=== PATIENT | female | born 1945 | race Caucasian/White ===

== ENCOUNTER → 2024-06-02 14:39 | Outpatient (REF) | payer OTHER, SELFPAY | LOC: RCS 14:39 | PROVIDERS: ATTENDING PHYSICIAN Internal Medicine Cardiovascular Disease | DX: I25.10 Atherosclerotic heart disease of native coronary artery without angina pectoris (principal); G20.A1 Parkinson's disease without dyskinesia, without mention of fluctuations; R06.02 Shortness of breath | CPT/HCPCS: 93306 ==

== ENCOUNTER → 2024-06-06 07:53 | Outpatient (REF) | payer OTHER, SELFPAY | LOC: PET 07:53 | PROVIDERS: ATTENDING PHYSICIAN Obstetrics & Gynecology | DX: I25.10 Atherosclerotic heart disease of native coronary artery without angina pectoris (principal); G20.A1 Parkinson's disease without dyskinesia, without mention of fluctuations; R06.02 Shortness of breath | CPT/HCPCS: 78431; A9555; J2785 ==

== ENCOUNTER → 2024-10-04 14:08 | Outpatient (REF) | payer OTHER, SELFPAY | LOC: DHSLP 14:08 | PROVIDERS: ATTENDING PHYSICIAN Student in an Organized Health Care Education/Training Program | DX: G47.30 Sleep apnea, unspecified (principal); R06.83 Snoring | CPT/HCPCS: 95800 ==

== ENCOUNTER → 2024-12-13 12:20 | Outpatient (REF) | payer OTHER, SELFPAY ==
[2024-12-13 17:37] LABS: Blood Urea Nitrogen 34 mg/dl (7-17); Calcium 9.5 mg/dl (8.4-10.2); Carbon Dioxide 31 mmol/L (22-30); Chloride 91 mmol/L (98-107); Glucose 76 mg/dl (70-99); Potassium 3.9 mmol/L (3.5-5.1); Sodium 129 mmol/L (135-145); eGFR > 60.00
== END ==
LOC: RAD 12:20
PROVIDERS: ATTENDING PHYSICIAN Student in an Organized Health Care Education/Training Program; FAMILY PHYSICIAN Student in an Organized Health Care Education/Training Program
DX: R10.84 Generalized abdominal pain (principal)
CPT/HCPCS: 36415; 74177; 80048; Q9967

== ENCOUNTER 2024-12-18 14:31 | Inpatient (IN) | payer OTHER, SELFPAY ==
[2024-12-15 18:57] VITALS: BP 130/80
[2024-12-15 19:23] LABS: Hematocrit 45.0 % (37.0-47.0); Hemoglobin 14.8 g/dL (12.0-16.0); Mean Corp Hgb Conc. 32.9 g/dL (33.0-37.0); Mean Corpuscular Volume 79.6 fL (81.0-99.0); Nucleated Red Blood Cells % 0 %; Platelet Count 309 10^3/uL (130-400); Red Cell Dist. Width 12.6 % (11.5-14.5)
[2024-12-15 19:39] LABS: ALT (SGPT) < 10 U/L (0-35); AST (SGOT) 16 U/L (14-36); Albumin 4.1 g/dl (3.5-5.0); Alkaline Phosphatase 129 U/L (38-126); Blood Urea Nitrogen 35 mg/dl (7-17); COVID-19 Antigen Negative (Negative); Calcium 9.1 mg/dl (8.4-10.2); Carbon Dioxide 29 mmol/L (22-30); Chloride 92 mmol/L (98-107); Glucose 93 mg/dl (70-99); Potassium 4.4 mmol/L (3.5-5.1); Sodium 130 mmol/L (135-145); Total Protein 6.7 g/dl (6.3-8.2); eGFR > 60.00
[2024-12-15 19:40] LABS: Lipase 220 U/L (23-300)
[2024-12-16] VITALS (9 sets, daily range): BP systolic 123–174; BP diastolic 63–98; BMI 25.9; BMI 26.8
--- NOTE | 2024-12-16 00:59 | ED.GENMED ---
History of Present Illness
General
Chief Complaint: Abdominal Symptoms
Source: patient, records and family
Exam Limitations: none
Time Seen by Provider: 12/16/24 00:15
Nursing documentation reviewed up to this point in time: agreed with
History of Present Illness
History of Present Illness:
78-year-old female with a past medical history of Parkinson's, hypertension, hyperlipidemia, hypothyroidism who presents to the ER with daughter for evaluation of abdominal pain with nausea and vomiting. Patient reports symptoms have been ongoing
for about 3 weeks and generally worsening. She was seen by her primary doctor for the symptoms 12/13 and was sent for urgent imaging and lab work which was nondiagnostic. She has been taking Zofran ODT and PPI but symptoms have been worsening over
the past few days. She cannot tolerate any liquids without vomiting and so she returned to the ER. She says she feels very fatigued and rundown. Continues to have pain across the lower abdomen which she describes as a cramping sensation. She has
had occasional diarrhea. She is chronically incontinent of urine but denies any acute urinary symptoms. She has not noted a fever. She denies any chest pain or shortness of breath or any other acute issues.
Past History
Past History
ED Past Medical History: HTN, Hypercholesterolemia and Other (Parkinson's)
ED Past Surgical History: Gynecological (Hysterectomy) and Other (Breast reduction)
Social History
Tobacco: Non-smoker
Alcohol: None
Drug: None
Personal:
Living: with family
Review of Systems
Review of Systems
All Other Systems: ROS reviewed and negative except as documented in HPI and ROS
Constitutional: Reports fatigue; Denies fever
EENT: Denies sore throat or runny nose
Respiratory: Denies cough or trouble breathing
Cardiac: Denies chest pain
ABD/GI: Reports abdominal pain, nausea, vomiting and diarrhea
: Reports incontinence; Denies dysuria or flank pain
Musculoskeletal: Denies neck pain or back pain
Neurological: Denies headache
Phy Exam
Physical Exam
Physical Exam:
General: Awake, alert, oriented x3; appears chronically ill
Head: Normocephalic, atraumatic
Eyes: Conjunctiva normal, sclera anicteric
Throat: Airway intact, dry mucous membranes
Neck: Trachea midline, supple without meningismus
Lungs: Clear to auscultation bilaterally, no wheezing, rales, rhonchi
Heart: Regular rate and rhythm, no murmurs, gallops, or rubs
Abd: Soft, non distended, diffusely tender maximally in the lower abdomen=
Skin: Warm and dry
Extremities: No edema in extremities, equal pulses in all extremities
Scores
Heart Failure Risk
Heart Failure Risk Score: Not Applicable
Heart Score for Chest Pain Patients
STEMI patient?: Not applicable
Withdrawal Assessment of Alcohol
Withdrawal Assessment Completed?: Not applicable
Course
Orders/Labs/Results
Orders:
Orders
12/15/24 19:10
COVID-19 Antigen Urgent
Source: Nasal Swab
Complete Blood Count/With Diff Urgent
Comprehensive Metabolic Panel Urgent
Lipase Urgent
Influenza A+B Rapid Molecular Urgent
PATRICK Source: Nasal Swab
Specimen Description:
12/16/24 00:17
CT Abd/pelvis W Iv Cont Urgent
Comment:
Reason For Exam: abd pain, vomiting
12/16/24 00:18
Electrocardiogram (*1) Urgent
Reason for Study: Abdominal Pain
EKG- Treatment ONCE
0.9% Sodium Chloride 500 ml [Nss] 500 ml IV BOLUS
12/16/24 01:03
Ondansetron Injectable [Zofran] 4 mg IV NOW STA
Abnormal Lab Results
12/15/24
19:10
RBC 5.65 H 10^6/uL
(4.20-5.40)
MCV 79.6 L fL
(81.0-99.0)
MCH 26.2 L pg
(27.0-31.0)
MCHC 32.9 L g/dL
(33.0-37.0)
MPV 11.5 H fL
(7.4-10.4)
Absolute Neuts (auto) 8.3 H 10^3/uL
(1.4-6.5)
Absolute Lymphs (auto) 0.3 L 10^3/uL
(1.2-3.4)
Absolute Monos (auto) 0.7 H 10^3/uL
(0.1-0.6)
Neutrophils % 88.7 H %
(42.2-75.2)
Lymphocytes % 3.4 L %
(20.5-51.1)
Sodium 130 L mmol/L
(135-145)
Chloride 92 L mmol/L
(98-107)
BUN 35 H mg/dl
(7-17)
Total Bilirubin 1.5 H mg/dl
(0.2-1.3)
Alkaline Phosphatase 129 H U/L
(38-126)
12/15/24 19:10
12/15/24 19:10
Vital Signs
Initial and Last Documented VS:
Initial Vital Signs
Temp Pulse Resp Pulse Ox
36.5 C 85 19 95
12/15/24 18:54 12/15/24 18:54 12/15/24 18:54 12/15/24 18:54
Last Documented Vital Signs
Temp Pulse Resp BP Pulse Ox
36.4 C 79 16 132/79 95
12/16/24 00:43 12/16/24 01:45 12/16/24 01:45 12/16/24 01:00 12/16/24 01:45
MDM/Problems Addressed
Differential Diagnosis Includes:
Bowel obstruction, cholelithiasis/cholecystitis, pancreatitis, gastritis, enteritis, less likely appendicitis or diverticulitis
MDM/Problems Addressed:
78-year-old female presents to the ER for worsening abdominal pain with nausea and vomiting�unable to tolerate p.o. Symptoms developed over 3 weeks but worsening over the past few days�had outpatient workup which was nondiagnostic but symptoms
still progressing. Vitals and exam are as above. She had labs in triage including a CBC and a CMP�CMP showed mildly elevated T. bili but normal transaminases and normal lipase. Viral swabs negative. Will repeat CT given progression of symptoms.
Check EKG. Fluid resuscitation and IV Zofran. Reassess after the above.
CT shows likely enteritis but no other acute abnormalities. Vital stable. Continue fluids, admit for symptom control given failure of outpatient management. Discussed with hospitalist.
*Radiology
Radiology exam reviewed: radiology read reviewed
*Pulse Oximetry
SaO2: 98
Oxygen Mode of Delivery: Room air
Patient hypoxic: no (98%)
*Critical Care Note
Total Time (30-74mins, 75-104mins- exclusive of procedures): Not Applicable
Data Reviewed
Review of Other/Old Records Reveals: Labs, Records and Progress Notes (Reviewed office note from PCP visit on Wednesday)
Source: patient and records
Patient Management
Discussion with other providers: Hospitalist (Discussed with hospitalist)
Escalation/DeEscalation of care consider admission/obs:
Admission indicated
ED Attending Note
-
Portions of this chart may have been created with voice recognition software.� Occasional wrong word or��sound alike� substitutions may have occurred due to the inherent limitations of voice recognition software.
Discharge Plan
Departure
Patient Disposition: Admit
Date of Disposition: 12/16/24
Time of Disposition: 03:24
Admit to doctor: Chalino
Presentation/result/management discussed w/ accepting MD/DO: Hospitalist
Discharge Problem:
Nausea & vomiting, Acute dehydration, Enteritis
Prescriptions:
No Action
atorvastatin 40 mg Tablet
40 mg PO DAILY
carbidopa-levodopa [Sinemet] 25-100 mg Tablet
2 tab PO Q3H
Patient Comments:
and at bedtime
quetiapine 25 mg Tablet
25 mg PO BID
carbidopa-levodopa 50-200 mg Tablet Extended Release
1 tab PO HS
selegiline HCl 5 mg Tablet
5 mg PO BID@,
rivastigmine tartrate 3 mg Capsule
6 mg PO BID
clopidogrel 75 mg Tablet
75 mg PO DAILY Qty: 30 0RF
aspirin 81 mg Tablet,Chewable
81 mg PO DAILY Qty: 0 0RF
lisinopril 40 mg Tablet
40 mg PO DAILY
levothyroxine
See Rx Instructions .ROUTE .COMPLEX
Rx Instructions:
139 mg orally Mon,,WED, , FR
omeprazole [Prilosec] 20 mg Capsule,Delayed Release(Dr/Ec)
20 mg PO DAILY
metoprolol tartrate 25 mg tablet
12.5 mg PO DAILY
Referrals:
Maria Fernanda Aguilar MD, Resident [Family Provider, General]
Interventions
Interventions:
*Risk Screen - Suicide Last Done: 12/15/24 18:56
*General Assessment Last Done: 12/15/24 18:56
*Neglect/Abuse Screening Last Done: 12/15/24 18:56
*ED- Fall Risk Assessment Last Done: 12/16/24 00:52
*ED COVID-19 Vaccine History Last Done: 12/15/24 18:56
*ED Influenza Vaccine History Last Done: 12/15/24 18:56
IN-Gvsduz-Ksubnohbcl Assessment Last Done: 12/16/24 00:44
Discharge Date and Time
Print Language: [place]
[2024-12-16] MEDS: NSS 500 IV (01:02)
[2024-12-16] MEDS: ZOFRAN 4 MG IV ×3 (01:13→16:49)
--- NOTE | 2024-12-16 04:27 | HPS.HSE ---
Family Physician
-
Family Physician: Maria Fernanda Aguilar MD, Resident
Chief Complaint
-
N/V and abdominal pain
History of Present Illness
Patient is an 78y F with PMH significant for Parkinson's disease, ASCVD and hypertension who presents to ED complaining of abdominal pain and N/V. Patient states that symptoms have been present for about 4 weeks and have been progressive in that
time. She reports initially a 'sour stomach' that progressed to include N/V. She reports about 3-4 episodes of non-bloody emesis daily. She has been eating / drinking very little and notes that recently she has also been unable to keep down her
medications. She notes pain across the upper abdomen. No diarrhea, bloody stools, etc.
Patient denies any fevers / chills. No known sick contacts. No recent travel.
Patient does state that she recently started a new formulation of extended release carbidopa-levodopa. She believes this was also about 4 weeks ago. No other recent med changes.
Medical History
Past Medical History
Past Medical History: Reports Other
Additional Past Medical History:
Parkinson's Disease
Hypertension
ASCVD
Myelofibrosis
Hypothyroidism
GERD
Lupus
Past Surgical History: Reports Other
Additional Past Surgical History:
PTCA with Stent
Hysterectomy
Breast Reduction
Carpal Tunnel Surgery
Brain Surgery (?)
Cataracts
Social History
Tobacco: Non-smoker
Alcohol: Occasional
Drug: None
Family History
Family History: Not pertinent
Allergies / Home Medications
Allergies reflects when Allergies were last updated in [facility].
Home Medications with original date entered in [facility]
Allergy/Medication List:
Patient is unable to confirm her current medication list.
If medication reconciliation has not been performed, why?: Medication List N/A
Review of Systems
-
History Source: Patient
A 12 point ROS was completed and negative except as noted: Yes
Constitutional: Reports Fatigue; Denies Fever or Chills
Respiratory: Denies Cough or Trouble Breathing
Cardiac: Denies Chest Pain or Palpitations
Abdomen/GI: Reports Abdominal Pain, Nausea, Vomiting and Anorexia; Denies Diarrhea, Bloody Stools or Black Stools
: Denies Dysuria or Frequency
Musculoskeletal: Denies Joint Pain or Edema
Neurological: Denies Dizzy or Headache
Psych: Denies Depression or Anxiety
Physical Exam
Vital Signs
Vital Signs
Temp Pulse Resp BP Pulse Ox
97.6 F 79 16 163/84 96
12/16/24 00:43 12/16/24 01:45 12/16/24 01:45 12/16/24 04:00 12/16/24 03:52
Physical Exam
General: Other (78y F somewhat restless in the bed.)
HEENT: Other (Dry MM. Neck supple.)
Respiratory: Clear; No Wheezes, Rales or Rhonchi
Cardiac: S1/S2 and Regular Rhythm; No Murmur
GI: Soft, Non Distended, Normal Bowel Sounds and Other (Mildly, diffusely tender. No rebound / guarding.)
Musculoskeletal: No Clubbing, No Cyanosis and No Edema
Neuro: AO x 3
Laboratory Results
-
12/15/24 19:10
12/15/24 19:10
Laboratory Results
Total Bilirubin 1.5 mg/dl (0.2-1.3) H 12/15/24 19:10
AST 16 U/L (14-36) 12/15/24 19:10
ALT < 10 U/L (0-35) 12/15/24 19:10
Alkaline Phosphatase 129 U/L (38-126) H 12/15/24 19:10
Lipase 220 U/L (23-300) 12/15/24 19:10
Impression/Plan
-
A/P: Patient is an 78y F with PMH significant for Parkinson's disease, ASCVD and hypertension who presents to ED complaining of about four weeks of abdominal discomfort and N/V.
N/V
- Observe overnight for further evaluation and treatment.
- CT A/P (done both 12/13 and 12/15) show only areas of small bowel decompression +/- enteritis.
- Afebrile, non-toxic, no leukocytosis and no diarrhea. Symptoms present x 4 weeks per patient which seems prolonged for typical enteritis.
- ? gastritis / enteritis. ? med effect. ? other.
- Supportive care with IVFs, pain control, antiemetics, etc.
- Need formal med rec - especially as patient states new extended release formulation of Sinemet started prior to current symptoms.
- Reviewed external summary, pharmacy interface, etc and multiple formulations with current fill dates are listed - not clear which of these she is actively taking.
- Complete formal med rec in AM and resume necessary medications at that time.
- Follow for clinical improvement with IVFs / supportive care.
Parkinson's Disease
- See above re: med rec and recent changes in carbidopa / levodopa regimen.
- If timing of new med is accurate - may wish to change back to next most recent regimen to see if current nausea symptoms improve?
ASCVD
- Continue ASA daily uninterrupted.
- Med rec and resume other usual CV meds in AM.
Hypothyroidism
- Continue T4 supplementation.
Lupus
- No acute rashes / skin changes / joint pain / etc.
DVT Prophylaxis: Lovenox
Code Status: DNR
[2024-12-16] MEDS: NSS 1000 IV (04:58)
[2024-12-16 05:16] LABS: Hematocrit 42.9 % (37.0-47.0); Hemoglobin 14.7 g/dL (12.0-16.0); Mean Corp Hgb Conc. 34.3 g/dL (33.0-37.0); Mean Corpuscular Volume 79.0 fL (81.0-99.0); Platelet Count 305 10^3/uL (130-400); Red Cell Dist. Width 12.6 % (11.5-14.5)
[2024-12-16 05:40] LABS: Blood Urea Nitrogen 36 mg/dl (7-17); Calcium 8.5 mg/dl (8.4-10.2); Carbon Dioxide 26 mmol/L (22-30); Chloride 97 mmol/L (98-107); Estimated Creatinine Clearance 46 ml/min; Glucose 58 mg/dl (70-99); Magnesium 1.7 mg/dl (1.6-2.3); Potassium 4.5 mmol/L (3.5-5.1); Sodium 132 mmol/L (135-145); eGFR > 60.00
[2024-12-16 07:57] LABS: Glucose - Point of Care 73 mg/dl (70-99)
--- NOTE | 2024-12-16 09:12 | EDCM ---
CM reviewed chart and met with pt bedside in ED. Lives alone in [place] apartment at [facility]. No JOI.
Independent in ADLs, personal care and ambulation at baseline, uses Rolling walker and occasionally cane. Also has shower chair.
Confirms prescription coverage.
OBS form reviewed and signed, copy given to pt.
No hx VN or SNF
PCP: Cookie Mcclure
Pharmacy: [facility]
Anticipate discharge home, CM will continue to follow for all discharge planning needs.
--- NOTE | 2024-12-16 09:47 | W.PN.UPDATE ---
Update Note
Progress Note Update
Admitted this morning by Dr. Allred for upper GI symptoms and abdominal pain. CT evidence of small areas of small bowel decompression plus or minus enteritis. Continue with the treatment plan. Await med rec to be completed to restart her home
medication. Asked pharmacy to finish the med rec.
[2024-12-16] MEDS: LOW STRENGTH ASPIRIN PO ×2 (09:56→10:06)
[2024-12-16] MEDS: PROTONIX PO ×2 (09:56→10:07)
--- NOTE | 2024-12-16 10:00 | PTCARENOTE ---
Addendum entered by Josue Laws RN 12/16/24 13:25:
Accuchecks ordered
Original Note:
Attempted to give PO medications to patient, denies nausea at this time. Patient swallowed medications with thin liquids and immediately coughed with some choking noted. Pills came back whole and pt began to vomit bilious contents. MD made aware,
made NPO for now and FORM TAMPER consulted. D51/2NSS ordered to maintain blood sugars - accucheck 77. Patient awaiting bed assignment in hospital and daughter at bedside. Call appiah within reach, care ongoing.
[2024-12-16] MEDS: D5/0.45%NACL 500 IV (12:02)
[2024-12-16 12:03] LABS: Glucose - Point of Care 77 mg/dl (70-99)
--- NOTE | 2024-12-16 14:10 | PTCARENOTE ---
Received patient from ED via hospital bed. AAOx3, forgetful. Assessed and oriented to room. Bed alarm in place. Daughter at bedside. Will continue to monitor.
[2024-12-16] MEDS: ZESTRIL 40 MG PO (16:31)
[2024-12-16] MEDS: SEROQUEL 25 MG PO (16:32)
[2024-12-16] MEDS: LOVENOX 40 MG SC (16:35)
[2024-12-16 16:44] LABS: Glucose - Point of Care 120 mg/dl (70-99)
[2024-12-16] MEDS: D5/0.45%NACL IV (17:26)
--- NOTE | 2024-12-16 17:39 | PTOTSP ---
Speech Therapy Evaluation
Pt at an increased risk of aspiration given history of Parkinson's disease and GERD. Speech consulted due to 'choking' episode with whole pills. At bedside, pt demonstrated difficulty with regular solids but was able to manage softer textures. Pt
swallowed solids with facial grimacing but denied odynophagia. No overt s/sx of aspiration with thin liquid trials but pt reported occasional coughing when drinking thins. Cannot rule out silent aspiration at bedside. Pt with suspected GI issues,�as
evidenced by n/v and abdominal pain.�
Recommendation:
1 .IDDSI 6 Soft and bite size, IDDSI 0 Thin liquids
2. Medication crushed in puree only (how patient took medication at baseline)
3. Standard aspiration precautions
4. EXPANSION JOINT BUILDER to follow and consider VSE to rule out pharyngeal dysphagia
[2024-12-16] MEDS: NON-FORMULARY ITEM 2 CAP PO (17:44)
[2024-12-16] MEDS: D5/0.45%NACL 1000 IV (17:45)
[2024-12-16 21:38] LABS: Glucose - Point of Care 122 mg/dl (70-99)
[2024-12-16] MEDS: SEROQUEL 75 MG PO (22:08)
[2024-12-16] MEDS: MELATONIN 5 MG PO (22:08)
[2024-12-16] MEDS: EXELON 6 MG PO (22:08)
[2024-12-16] MEDS: PEPCID 40 MG PO (22:09)
[2024-12-16] MEDS: LIPITOR 40 MG PO (22:09)
[2024-12-16] MEDS: TOPROL XL PO ×2 (22:09→23:32)
[2024-12-16] MEDS: NON-FORMULARY ITEM PO ×2 (22:13→23:32)
[2024-12-16] MEDS: PLAQUENIL 200 MG PO (22:15)
[2024-12-16] MEDS: SINEMET CR 50/200 (EXTENDED RELEASE) PO ×2 (22:16→23:32)
[2024-12-17] MEDS: VALIUM INJECTION 2 MG IV (01:01)
--- NOTE | 2024-12-17 02:05 | W.PN.UPDATE ---
Update Note
Progress Note Update
Pt confused and agitated overnight. Repeatedly trying to climb oob and kick and hurt staff.
Review of chart showed in nov 2021 admission pt also had a night when we was confused, agitated and not cooperative. So possible hospital delirium in this parkinson pt.
She did receive her HS seroquel, but did refuse her parkinson meds.
Valium iv attempted but ineffective. Restraints ordered and dose of zyprexa (not willing to take anything po at this time).
Consider psych consult. Has not had her nuplazid in 2 days as it is non formulary. Is this making MS worse?MAy need to have family bring in from home.
[2024-12-17] MEDS: ZYPREXA 5 MG IM (02:20)
[2024-12-17] MEDS: D5/0.45%NACL 1000 IV ×2 (04:08→14:52)
--- NOTE | 2024-12-17 05:00 | PTCARENOTE ---
Patient set off bed alarm and lowered herself next to side of bed to crouching position. Patient incontinent of large amount of urine on floor. Patient assisted back to bed x2, VSS. RECEPTIONIST DOCTOR'S OFFICE made aware. Attempted to give HS meds, patient refusing
stating 'you are giving me too many.' Educated patient on the importance of taking meds, patient eventually agreeable to take most of her medications, see mar. Throughout night patient agitated with care, yelling, combative, trying to kick staff.
Patient confused, oriented x2 stating she is at [facility]. Patient continuously trying to get out of bed despite redirection. RECEPTIONIST DOCTOR'S OFFICE made aware, orders for bilateral wrist restraints and IV valium. After valium, patient continues to be combative and
attempting to get up, RECEPTIONIST DOCTOR'S OFFICE added orders for IM Zyprexa. Plan of care ongoing.
[2024-12-17 07:35] VITALS: BP 149/98
[2024-12-17 07:38] LABS: Glucose - Point of Care 119 mg/dl (70-99)
[2024-12-17 07:58] LABS: Hematocrit 41.9 % (37.0-47.0); Hemoglobin 14.7 g/dL (12.0-16.0); Mean Corp Hgb Conc. 35.1 g/dL (33.0-37.0); Mean Corpuscular Volume 77.3 fL (81.0-99.0); Platelet Count 298 10^3/uL (130-400); Red Cell Dist. Width 12.5 % (11.5-14.5)
[2024-12-17] MEDS: NON-FORMULARY ITEM PO ×3 (08:20→17:33)
[2024-12-17] MEDS: PROTONIX 40 MG PO (08:58)
[2024-12-17] MEDS: ZESTRIL 40 MG PO (08:58)
[2024-12-17] MEDS: ORETIC 25 MG PO (08:58)
[2024-12-17] MEDS: SEROQUEL 25 MG PO (08:58)
[2024-12-17] MEDS: LOW STRENGTH ASPIRIN 81 MG PO (08:58)
[2024-12-17] MEDS: EXELON 6 MG PO ×2 (09:15→19:43)
[2024-12-17 12:00] LABS: Glucose - Point of Care 108 mg/dl (70-99)
[2024-12-17 12:09] LABS: Glycohemoglobin (HgbA1c) 6.0 % (4.0-5.6)
--- NOTE | 2024-12-17 12:56 | W.PN.HOSP.TC ---
Addendum entered and electronically signed by Isaac West MD 12/17/24 13:06:
Hyponatremia -continue to follow
Original Note:
Today's Communication/Plan
-
Resume all her Parkinson's disease medicine. Daughter to bring Nuplazid. Continue with IV fluids.
Bowel regimen.
Assessment / Plan
Assessment / Plan
A/P: Patient is an 78y F with PMH significant for Parkinson's disease, ASCVD and hypertension who presents to ED complaining of about four weeks of abdominal discomfort and N/V.
N/V with abdominal pain and weight loss.
- CT A/P (done both 12/13 and 12/15) show only areas of small bowel wall thickening in the right lower quadrant raising concern for enteritis..
- Afebrile, non-toxic, no leukocytosis and no diarrhea. Symptoms present x 4 weeks per patient which seems prolonged for typical enteritis.
- ? gastritis / enteritis. ? med effect. ? other.
-Patient on the most recent endoscopy which was in 2022 showed multiple gastric polyps and a biopsy that was benign. Unclear if it has any relation to her current symptoms but will ask GI to weigh in.
- Supportive care with IVFs, pain control, antiemetics, etc.
- Need formal med rec - especially as patient states new extended release formulation of Sinemet started prior to current symptoms. According to the family who was in touch with neurology they do not suspect her medication to play a role in her GI
symptoms.
- Follow for clinical improvement with IVFs / supportive care.
- On-call GI recommends to add bowel regimen to see if that makes any difference.
Parkinson's Disease with history of agitation so was put on Nuplazid
- Patient states neurologist at [facility] on the current regimen of medicine apparently is keeping the symptoms under control mostly. Will continue with her regimen.
Acute agitation-unclear if this is Parkinson disease related cognitive issue or missing her Nuplazid. Apart from GI symptom as above no obvious other infectious concern. Mild natremia noted but I doubt that has any relation to agitation. She had
prior episodes of agitation during hospitalization. Suspect sundowning and missing medication.
Daughter going to try and get Nuplazid. Continue with other Parkinson's medicine. If continued agitation consult neurology.
ASCVD
- Continue ASA daily uninterrupted.
- Med rec and resume other usual CV meds in AM.
Hypothyroidism
- Continue T4 supplementation.
Lupus
- No acute rashes / skin changes / joint pain / etc.
DVT Prophylaxis: Lovenox
Code Status: DNR
Discussed with RN. Discussed with daughter at bedside.
Total time spent on today's encounter was 52 minutes which included time spent in counseling the patient/family regarding diagnosis and treatment plan as listed above, goals of care, and symptom management. Case was discussed with nursing staff,
specialists, and care coordinators/case management. All labs and imaging personally reviewed by me. Remainder the time spent in detailed review of previous records, lab data, imaging, and other medical provider documentation.
Portions of this chart may have been created with voice recognition software. Occasional wrong word or 'sound alike' substitutions may have occurred due to the inherent limitations of voice recognition software.
Anticipated Discharge: > 48 hours
Subjective/Interval History
-
Date of Service: December 17, 2024
Last night events of agitation noted.
This morning patient is sedated and difficult to be arousable. No agitation. No respiratory distress evident. On room air. In restraints.
Objective Data
-
Labs:
Laboratory Results
12/17/24
07:04
WBC 8.4
Hgb 14.7
Hct 41.9
Plt Count 298
Vital Signs:
Vital Signs
Temp Pulse Resp BP Pulse Ox
98.1 F 112 18 149/98 97
12/17/24 07:35 12/17/24 07:35 12/17/24 07:35 12/17/24 07:35 12/17/24 07:35
I&O
12/16/24 12/17/24 12/18/24
06:59 06:59 06:59
Intake Total 700 / 700 1380 / 1380
Balance 700 / 700 1380 / 1380
Physical Exam
-
General: No Apparent Distress
Respiratory: Clear to Auscultation (Anterior lateral auscultation) and Non Labored Respirations; Negative Accessory Resp Muscle Use
Cardiac: Regular Rhythm and S1/S2; Negative Tachycardic
GI: Soft
Neuro: Sedated
Psych: Calm
Data Reviewed
-
Labs: Labs Reviewed by me
[2024-12-17] MEDS: MIRALAX PO (13:51)
[2024-12-17 15:20] VITALS: BP 140/74
[2024-12-17 16:49] LABS: Glucose - Point of Care 118 mg/dl (70-99)
[2024-12-17] MEDS: NON-FORMULARY ITEM 34 MG PO (17:56)
[2024-12-17] MEDS: LOVENOX 40 MG SC (17:57)
[2024-12-17] MEDS: NON-FORMULARY ITEM 2 CAP PO ×2 (18:01→22:37)
--- NOTE | 2024-12-17 19:32 | PTCARENOTE ---
Patient more arousable this evening. Asking appropriate questions. Attempting to eat dinner. Patient was able to take PO medications with water. Updated daughter Barbi. Will continue to monitor.
[2024-12-17] MEDS: COLACE 100 MG PO (19:43)
[2024-12-17] MEDS: SINEMET CR 50/200 (EXTENDED RELEASE) 1 TABLET PO (19:43)
[2024-12-17] MEDS: SEROQUEL 75 MG PO (19:44)
[2024-12-17] MEDS: PLAQUENIL 200 MG PO (20:56)
[2024-12-17] MEDS: TOPROL XL 12.5 MG PO (22:43)
[2024-12-17] MEDS: PEPCID 40 MG PO (22:43)
[2024-12-17] MEDS: LIPITOR 40 MG PO (22:47)
[2024-12-17] MEDS: MELATONIN 5 MG PO (22:47)
[2024-12-17 23:52] VITALS: BP 105/52
[2024-12-18] MEDS: D5/0.45%NACL 1000 IV ×3 (00:08→21:14)
[2024-12-18] MEDS: SYNTHROID 137 MCG PO (06:28)
[2024-12-18 08:34] VITALS: BP 127/65
[2024-12-18 09:20] LABS: Hematocrit 39.5 % (37.0-47.0); Hemoglobin 12.9 g/dL (12.0-16.0); Mean Corp Hgb Conc. 32.7 g/dL (33.0-37.0); Mean Corpuscular Volume 80.1 fL (81.0-99.0); Platelet Count 236 10^3/uL (130-400); Red Cell Dist. Width 12.7 % (11.5-14.5)
[2024-12-18] MEDS: NON-FORMULARY ITEM 2 CAP PO ×3 (09:23→21:11)
[2024-12-18] MEDS: NON-FORMULARY ITEM 34 MG PO (09:24)
[2024-12-18] MEDS: EXELON 6 MG PO ×2 (09:24→20:38)
[2024-12-18] MEDS: COLACE 100 MG PO (09:25)
[2024-12-18] MEDS: SEROQUEL 25 MG PO (09:25)
[2024-12-18] MEDS: LOW STRENGTH ASPIRIN 81 MG PO (09:25)
[2024-12-18] MEDS: PROTONIX 40 MG PO (09:25)
[2024-12-18] MEDS: ZESTRIL 40 MG PO (09:25)
[2024-12-18] MEDS: MIRALAX 17 GRAMS PO (09:26)
[2024-12-18] MEDS: ORETIC 25 MG PO (09:26)
[2024-12-18 10:11] LABS: Blood Urea Nitrogen 15 mg/dl (7-17); Calcium 8.6 mg/dl (8.4-10.2); Carbon Dioxide 30 mmol/L (22-30); Chloride 98 mmol/L (98-107); Estimated Creatinine Clearance 65 ml/min; Glucose 83 mg/dl (70-99); Potassium 3.3 mmol/L (3.5-5.1); Sodium 132 mmol/L (135-145); eGFR > 60.00
[2024-12-18 12:25] LABS: Glucose - Point of Care 107 mg/dl (70-99)
--- NOTE | 2024-12-18 14:32 | W.PN.HOSP.TC ---
Today's Communication/Plan
-
Assessment / Plan
Assessment / Plan
A/P: Patient is an 78y F with PMH significant for Parkinson's disease, ASCVD and hypertension who presents to ED complaining of about four weeks of abdominal discomfort and N/V.
NAD
Scleral Anicteric
MMM
No JVD
CTABL
RRR, S1/S2
Soft, NT, ND, BS+
Warm, Dry
AAOx3
Calm
N/V with abdominal pain and weight loss. Symptomatology ongoing x [address] abdomen pelvis reviewed demonstrating some right lower quadrant small bowel thickening could be enteritis
Strange for infectious enteritis to be ongoing for more than 2 weeks.
Will have GI eval
Continue current diet
If eating less start IV fluids dextrose containing
Parkinson's Disease with history of agitation so was put on Nuplazid
- Patient states neurologist at [facility] on the current regimen of medicine apparently is keeping the symptoms under control mostly. Will continue with her regimen.
Acute agitation-unclear if this is Parkinson disease related cognitive issue or missing her Nuplazid. Apart from GI symptom as above no obvious other infectious concern. Mild natremia noted but I doubt that has any relation to agitation. She had
prior episodes of agitation during hospitalization. Suspect sundowning and missing medication.
Daughter going to try and get Nuplazid. Continue with other Parkinson's medicine. If continued agitation consult neurology.
ASCVD
- Continue ASA daily uninterrupted.
- Med rec and resume other usual CV meds in AM.
Hypothyroidism
- Continue T4 supplementation.
Lupus
- No acute rashes / skin changes / joint pain / etc.
DVT Prophylaxis: Lovenox
Code Status: DNR
Discussed with daughter at bedside
Anticipated Discharge: 24 - 48 hours
Subjective/Interval History
-
Date of Service: December 18, 2024
Seen and examined. No new complaints. No acute overnight events.
Started on Nuplazid. No more further hallucinations. Had a better night last night.
Objective Data
-
Labs:
Laboratory Results
12/18/24
08:40
WBC 5.5
Hgb 12.9
Hct 39.5
Plt Count 236 D
Sodium 132 L
Potassium 3.3 L D
Chloride 98
Carbon Dioxide 30
BUN 15
Creatinine 0.6
Glucose 83
Calcium 8.6
Vital Signs:
Vital Signs
Temp Pulse Resp BP Pulse Ox
98.2 F 64 18 127/65 97
12/18/24 08:34 12/18/24 09:25 12/18/24 08:34 12/18/24 09:25 12/18/24 08:34
I&O
12/17/24 12/18/24 12/19/24
06:59 06:59 06:59
Intake Total 1380 / 1380 0 / 0
Balance 1380 / 1380 0 / 0
[2024-12-18 15:33] VITALS: BP 149/75
[2024-12-18 17:04] LABS: Glucose - Point of Care 101 mg/dl (70-99)
[2024-12-18] MEDS: LOVENOX 40 MG SC (17:17)
--- NOTE | 2024-12-18 18:38 | CM ---
Pt continues on IVF and supportive care. Spoke with nurse Pearl who stated the patient's Parkinson's medication still needed management before she would be ready for discharge.
Plan: Home to [place] at [facility]
[2024-12-18] MEDS: COLACE PO (20:37)
[2024-12-18] MEDS: PLAQUENIL 400 MG PO (20:38)
[2024-12-18] MEDS: SEROQUEL 75 MG PO (20:39)
[2024-12-18] MEDS: LIPITOR 40 MG PO (20:39)
[2024-12-18] MEDS: PEPCID 40 MG PO (20:40)
[2024-12-18] MEDS: TOPROL XL 12.5 MG PO (20:47)
[2024-12-18] MEDS: SINEMET CR 50/200 (EXTENDED RELEASE) 1 TABLET PO (20:48)
[2024-12-18] MEDS: ZOFRAN 4 MG IV (20:59)
[2024-12-18] MEDS: MELATONIN PO (21:08)
[2024-12-18 21:31] LABS: Glucose - Point of Care 85 mg/dl (70-99)
[2024-12-18 23:51] LABS: Glucose - Point of Care 110 mg/dl (70-99)
[2024-12-18 23:57] VITALS: BP 117/62
[2024-12-19] MEDS: SYNTHROID 137 MCG PO (05:45)
[2024-12-19 07:20] VITALS: BP 170/88
[2024-12-19] MEDS: NON-FORMULARY ITEM 2 CAP PO ×3 (07:58→21:51)
[2024-12-19] MEDS: NON-FORMULARY ITEM 34 MG PO (07:59)
[2024-12-19 08:31] LABS: Glucose - Point of Care 54 mg/dl (70-99)
--- NOTE | 2024-12-19 08:38 | PTCARENOTE ---
Pt has a BS of 54, gave OJ, and breakfast. made aware. Will recheck in 15 minutes.
[2024-12-19] MEDS: ORETIC 25 MG PO (08:40)
[2024-12-19] MEDS: LOW STRENGTH ASPIRIN 81 MG PO (08:41)
[2024-12-19] MEDS: COLACE 100 MG PO (08:41)
[2024-12-19] MEDS: SEROQUEL 25 MG PO (08:41)
[2024-12-19] MEDS: MIRALAX 17 GRAMS PO (08:41)
[2024-12-19] MEDS: EXELON 6 MG PO ×2 (08:41→21:43)
[2024-12-19] MEDS: ZESTRIL 40 MG PO (08:41)
[2024-12-19] MEDS: PROTONIX 40 MG PO (08:41)
--- NOTE | 2024-12-19 08:50 | CM ---
Addendum entered by Crystal Lorenz 12/19/24 17:59:
Sodium remains low.
PT rec SNF at discharge. Will hold sending referrals to [facility] and [facility] . Please see paragraph below.
Lengthy conversation with daughter regarding dc planning and PT recommendation. Dtr would prefer pt not to be placed in STR facility if possible. She believes that her mother can receive additional care with dressing, bathing, getting in and out of
bed, etc from the staff at [facility] where is currently living in an apartment. Dtr would be open to having a conference call with [facility] at [facility], physical therapist and CM to discuss if this is a safe alternative for the pt. CM explained
that pt needs moderate level of assistance with bed mobility.
CM will try to arrange a conference call
Plan: DC to SNF vs home health for PT and and increasing personal care services
Original Note:
Correction to note of 12/18/24
Pt continues on IVF and supportive care.
Plan: Home to [place] at [facility]
[2024-12-19 08:55] LABS: Glucose - Point of Care 80 mg/dl (70-99)
[2024-12-19 09:27] LABS: Hematocrit 42.3 % (37.0-47.0); Hemoglobin 13.6 g/dL (12.0-16.0); Mean Corp Hgb Conc. 32.2 g/dL (33.0-37.0); Mean Corpuscular Volume 81.3 fL (81.0-99.0); Platelet Count 227 10^3/uL (130-400); Red Cell Dist. Width 12.7 % (11.5-14.5)
[2024-12-19 09:48] LABS: Blood Urea Nitrogen 11 mg/dl (7-17); Calcium 8.7 mg/dl (8.4-10.2); Carbon Dioxide 29 mmol/L (22-30); Chloride 99 mmol/L (98-107); Estimated Creatinine Clearance 65 ml/min; Glucose 108 mg/dl (70-99); Potassium 3.1 mmol/L (3.5-5.1); Sodium 129 mmol/L (135-145); eGFR > 60.00
[2024-12-19 10:59] LABS: Glucose - Point of Care 99 mg/dl (70-99)
[2024-12-19 11:54] VITALS: BP 173/84; BP 176/85; BP 181/97; PULSE 61; PULSE 65; PULSE 77
--- NOTE | 2024-12-19 14:21 | CON.GI ---
Addendum entered and electronically signed by Merly Strickland DO 12/19/24 16:12:
The patient was seen and examined by me independently in collaboration with the nurse practitioner.
Past medical history/social history/medications/allergies/family history reviewed.
Lab data and imaging data reviewed.
78 y.o. female with hx SLE, PD, CAD s/p PCI, colon polyps, hypothyroidism, HLD, myelofibrosis admitted with acute on chronic abdominal pain, nausea and vomiting. No vomiting in last 2 days. Abdominal pain concentrated in lower abdomen, in band line
fashion. Admits to baseline constipation, knows she should take something daily at home but doesn't. She did have a large BM yesterday, following this, was able to eat a large portion of her dinner last night, which is a great improvement from
admission. Currently, on miralax daily and colace BID. She had a small BM earlier. Her exam is benign. Overall, states she feels well.
Suspect the etiology of her symptoms is constipation related-- which is extremely common in Parkinsons. Additionally, she is hyponatremic and also commonly causes constipation. All of this makes sense with her prior imaging studies demonstrating
moderate stool burden.
CT shows possible mild enteritis, I do not feel this is a significant finding, perhaps this was part of her initial N/V, but seems to have resolved
Agree with optimizing bowel regimen and correction of Na
Original Note:
Consultation
-
Date/Time Consultation Requested: 12/19/24 1200
Date/Time Consultation Performed: 12/19/24 1420
Requesting Provider: Cuco Castro MD
Performing Provider: TIARA Sheridan, Keke Strickland DO
Reason for Consultation: abdominal pain with nausea and vomiting
Medical History
Chief Complaint / HPI
Chief Complaint: constipatuion, decreased appetite
History of Present Illness:
Pt is a 78yo presents with hx SLE, parkinson's, CAD with prior stenting, colon polyps, GERD, HTN, hyperlipidemia, hypothyroidism, myelofibrosis, prior brain surgery, breast reduction with admission 12/15 with abdominal pain with nausea and
vomiting. In review PCP noted prior to admission noted with recent wt loss of 15 lbs since October. Since admission noted with stable CBC, persistent hyponatremia with Na 129-130, K 3.1, initial aimee 1.5 and alk phos 129 with normal
transaminases. She also had [address] with last 12/16 did question enteritis and SB wall thickening otherwise stable. She also admits to change in Parkinson meds with now extended release and per nursing staff was off for several days now
restarted.
In reviewing with patient chronic decreased appetite. She also admits to chronic constipation and lower abdominal pain. She was having some nausea and vomiting but not noted per staff last 2 days. Abdominal pain is better with tums and BM's.
She did have large stools 12/18 then did eat better today. She was taking Miralax minimally as needed prior to admission but now placed on Miralax daily and colace BID. She denies any issues with odynophagia, dysphagia, GERD, diarrhea or
rectal bleeding.
10/2019 colonoscopy michael - Three 3 to 5 mm polyps in the sigmoid colon, in the
descending colon and in the cecum. Biopsied.
- Minimal diverticulosis in the sigmoid colon bx TA
12/2022 EGDfor nausea and wt loss - Dr. Christopher - Normal esophagus. Biopsied.
- Z-line regular, 40 cm from the incisors.
- Erythematous mucosa in the antrum. Biopsied.
- Multiple gastric polyps. Resected and retrieved.
- Normal examined duodenum. Biopsied.
bx neg, no hpylori, stomach polyp no specific pathologic changes
.
Past Medical History
Past Medical History: Arrhythmias (PVC's), CAD, GERD, HTN, Hypercholesterolemia, Hypothyroidism and Other (parkinson's disease, myelofibrosis, colon polyps, pancytopenia, lupus )
Past Surgical History: Brain, Cardiac (stents), Gynecological (hysterectomy), Orthopedic (achilles tendon injury, b/l carpel tunnel) and Other (breast reduction, b/l cataracts, left eye surgery )
Social History
Tobacco: Non-Smoker
Alcohol: None
Drug: None
Living: Other (personal care [facility] )
Employment: Retired
Family History
Family History: Other (colon polyps-sister )
Allergies / Home Medications
Allergy/AdvReac Type Severity Reaction Status Date / Time
penicillin V Allergy Rash Verified 11/05/22 17:27
�Medication �Instructions �Recorded
atorvastatin 40 mg tablet 40 mg PO HS High cholesterol 11/23/21
carbidopa ER 50 mg-levodopa 200 mg 1 tab PO HS Parkinson Disease 12/11/21
tablet,extended release
quetiapine 25 mg tablet 25 mg PO DAILY Psychosis in 12/11/21
Parkinson Disease
rivastigmine tartrate 3 mg capsule 6 mg PO BID Parkinson Disease 12/11/21
aspirin 81 mg chewable tablet 81 mg PO DAILY #0 tabs 12/14/21
lisinopril 40 mg tablet 40 mg PO DAILY 11/05/22
acetaminophen 325 mg tablet 650 mg PO Q4H PRN mild pain/fever 12/16/24
carbidopa 25 mg-levodopa 100 mg 1 tab PO DAILYPRN PRN before 12/16/24
tablet exercise
carbidopa 70 mg-levodopa ER 280 mg 2 cap PO TID 12/16/24
capsule,immed and extended release
(Crexont)
famotidine 40 mg tablet 40 mg PO HS 12/16/24
hydrochlorothiazide 25 mg tablet 25 mg PO DAILY 12/16/24
hydroxychloroquine 200 mg tablet 200 mg PO SUTUTHSA@199912/16/24
hydroxychloroquine 200 mg tablet 400 mg PO MOWEFR@199912/16/24
levothyroxine 137 mcg tablet 137 mcg PO MOTUWETHFR 12/16/24
loperamide 2 mg tablet 2 mg PO Q4H PRN diarrhea 12/16/24
melatonin 2.5 mg chewable tablet 5 mg PO HS 12/16/24
metoprolol succinate 25 mg 12.5 mg PO HS 12/16/24
tablet,extended release 24 hr
ondansetron 4 mg disintegrating 4 mg PO Q8HPRN PRN nausea/vomiting 12/16/24
tablet
pantoprazole 40 mg tablet,delayed 40 mg PO DAILY 12/16/24
release
pimavanserin 34 mg capsule 34 mg PO DAILY 12/16/24
(Nuplazid)
quetiapine 25 mg tablet 75 mg PO HS 12/16/24
Review of Systems
-
History Source: Patient
Constitutional: Reports Weight Loss (per PCP not not per 2021 weight )
EENT: Reports No Symptoms
Respiratory: Reports No Symptoms
Abdomen/GI: Reports Abdominal Pain, Nausea, Vomiting and Constipated
: Reports No Symptoms
Musculoskeletal: Reports No Symptoms
Skin: Reports No Symptoms
Neurological: Reports Weakness
Endocrine: Reports No Symptoms
Hematologic/Lymphatic: Reports No Symptoms
Vital Signs
Temp Pulse Resp BP Pulse Ox
97.6 F 66 20 170/82 97
12/19/24 07:20 12/19/24 08:40 12/19/24 07:20 12/19/24 08:40 12/19/24 08:35
Physical Exam
Exam
General: Well Developed, Well Nourished and No Apparent Distress
HEENT: Normocephalic and Anicteric
Respiratory: Clear
Cardiac: Regular Rhythm
GI: Soft, Non Distended and Tender (minimal lower abdominal pain )
Musculoskeletal: No Clubbing and No Cyanosis
Skin: Warm and Dry
Neuro: Awake, Alert and AO x 3
Psych: Calm
Results
WBC 6.7 10^3/uL (4.8-10.8) 12/19/24 09:14
Hgb 13.6 g/dL (12.0-16.0) 12/19/24 09:14
Hct 42.3 % (37.0-47.0) 12/19/24 09:14
MCV 81.3 fL (81.0-99.0) 12/19/24 09:14
Plt Count 227 10^3/uL (130-400) 12/19/24 09:14
Absolute Neuts (auto) 8.3 10^3/uL (1.4-6.5) H 12/15/24 19:10
Sodium 129 mmol/L (135-145) L 12/19/24 09:14
Potassium 3.1 mmol/L (3.5-5.1) L 12/19/24 09:14
Chloride 99 mmol/L (98-107) 12/19/24 09:14
Carbon Dioxide 29 mmol/L (22-30) 12/19/24 09:14
BUN 11 mg/dl (7-17) 12/19/24 09:14
Creatinine 0.5 mg/dL (0.6-1.0) L 12/19/24 09:14
Calcium 8.7 mg/dl (8.4-10.2) 12/19/24 09:14
Total Bilirubin 1.5 mg/dl (0.2-1.3) H 12/15/24 19:10
AST 16 U/L (14-36) 12/15/24 19:10
ALT < 10 U/L (0-35) 12/15/24 19:10
Alkaline Phosphatase 129 U/L (38-126) H 12/15/24 19:10
Lipase 220 U/L (23-300) 12/15/24 19:10
Diagnostic Image Results:
10/2019 colonoscopy morsbach - Three 3 to 5 mm polyps in the sigmoid colon, in the
descending colon and in the cecum. Biopsied.
- Minimal diverticulosis in the sigmoid colon bx TA
12/2022 for nausea and wt loss EGD Do - Normal esophagus. Biopsied.
- Z-line regular, 40 cm from the incisors.
- Erythematous mucosa in the antrum. Biopsied.
- Multiple gastric polyps. Resected and retrieved.
- Normal examined duodenum. Biopsied.
bx neg, no hpylori, stomach polyp no specific pathologic changes
12/13/24 CT Abd/pel W Iv And Oral Contr
1. No significant acute abnormality identified in the abdomen or pelvis, as described above.
2. 5 mm right lower lobe pulmonary nodule, likely benign. If the patient is considered high risk, an optional follow-up noncontrast CT chest can be obtained in 12 months. The [facility] Pulmonary Nodule Advisory Board will be notified.
12/16/24 CT Abd/pelvis W Iv Cont
Apparent wall thickening of small bowel in the right lower quadrant, possibly due to enteritis, no intestinal obstruction or free air.
Additional stable findings in comparison to recent prior study, as detailed above
Assessment / Plan
-
Pt is a 78yo presents with hx SLE, parkinson's, CAD with prior stenting, colon polyps, GERD, HTN, hyperlipidemia, hypothyroidism, myelofibrosis, prior brain surgery, breast reduction with admission 12/15 with abdominal pain with nausea and vomiting.
In review PCP noted prior to admission noted with recent wt loss of 15 lbs since October. Since admission noted with stable CBC, persistent hyponatremia with Na 129-130, K 3.1, initial aimee 1.5 and alk phos 129 with normal transaminases. She
also had [address] with last 12/16 did question enteritis and SB wall thickening otherwise stable. She also admits to change in Parkinson meds with now extended release and per nursing staff was off for several days now restarted. In
reviewing with patient chronic decreased appetite. She also admits to chronic constipation and lower abdominal pain. She was having some nausea and vomiting but not noted per staff last 2 days. Abdominal pain is better with tums and BM's. She did
have large stools 12/18 then did eat better today. She was taking Miralax minimally as needed prior to admission but now placed on Miralax daily and colace BID.
-wt loss with decreased appetite
-abdominal pain
-CT with possible enteritis
-constipation
-hx parkinson's with change to long acting medication
-hyponatremia
-mild bili and alk phos elevation
other med problems:
SLE,CAD with prior stenting, colon polyps, GERD, HTN, hyperlipidemia, hypothyroidism, myelofibrosis, prior brain surgery, breast reduction
PLAN:
etiology of nausea /vomiting with decreased appetite related to possible enteritis on CT, constipation, vs other
reviewed with nursing staff no further vomiting last 2 days and did eat well for lunch today
she had large stool 12/18 and small stool 12/19
reviewed with patient will need bowel regiment to continue on discharge-- cont miralax daily, colace BID and will add senna at HS
correct Na per medical team
monitor intakes
cont parkinson medications
repeat LFT's with mild elevation on admission
pt would be due for follow up colonoscopy but with multiple medical problems she is not sure she would want to proceed and prefers to see how she does at this time with bowel regiment being added
reviewed with nursing staff
-
-
Thank you for consultation and allowing me to participate in the patient's care. Please call the crew leader/control room operator GI physician during the after hours with any questions or concerns.
[2024-12-19 14:37] LABS: Glucose - Point of Care 108 mg/dl (70-99)
--- NOTE | 2024-12-19 14:49 | W.PN.HOSP.TC ---
Today's Communication/Plan
-
GI consult. Reconsulted. Spoke with GI over TT at 09
Assessment / Plan
Assessment / Plan
A/P: Patient is an 78y F with PMH significant for Parkinson's disease, ASCVD and hypertension who presents to ED complaining of about four weeks of abdominal discomfort and N/V.
NAD
Scleral Anicteric
MMM
No JVD
CTABL
RRR, S1/S2
Soft, NT, ND, BS+
Warm, Dry
AAOx3
Calm
N/V with abdominal pain and weight loss. Symptomatology ongoing x [address] abdomen pelvis reviewed demonstrating some right lower quadrant small bowel thickening could be enteritis
Strange for infectious enteritis to be ongoing for more than 2 weeks.
Will have GI eval
Continue current diet
If eating less start IV fluids dextrose containing
Parkinson's Disease with history of agitation so was put on Nuplazid
- Patient states neurologist at [facility] on the current regimen of medicine apparently is keeping the symptoms under control mostly. Will continue with her regimen.
Acute agitation-unclear if this is Parkinson disease related cognitive issue or missing her Nuplazid. Apart from GI symptom as above no obvious other infectious concern. Mild natremia noted but I doubt that has any relation to agitation. She had
prior episodes of agitation during hospitalization. Suspect sundowning and missing medication.
Daughter brought Nuplazid. Continue with other Parkinson's medicine. If continued agitation consult neurology.
ASCVD
- Continue ASA daily uninterrupted.
- Med rec and resume other usual CV meds in AM.
Hypothyroidism
- Continue T4 supplementation.
Lupus
- No acute rashes / skin changes / joint pain / etc.
DVT Prophylaxis: Lovenox
Code Status: DNR
Discussed with daughter at bedside
Anticipated Discharge: 24 - 48 hours
Subjective/Interval History
-
Date of Service: December 19, 2024
Objective Data
-
Labs:
Laboratory Results
12/19/24
09:14
WBC 6.7
Hgb 13.6
Hct 42.3
Plt Count 227
Sodium 129 L
Potassium 3.1 L
Chloride 99
Carbon Dioxide 29
BUN 11
Creatinine 0.5 L
Glucose 108 H
Calcium 8.7
Total Bilirubin Pending
AST Pending
ALT Pending
Alkaline Phosphatase Pending
Vital Signs:
Vital Signs
Temp Pulse Resp BP Pulse Ox
97.6 F 66 20 170/82 97
12/19/24 07:20 12/19/24 08:40 12/19/24 07:20 12/19/24 08:40 12/19/24 08:35
I&O
12/18/24 12/19/24 12/20/24
06:59 06:59 06:59
Intake Total 0 / 0
Balance 0 / 0
[2024-12-19 15:07] LABS: ALT (SGPT) 12 U/L (0-35); AST (SGOT) 21 U/L (14-36); Albumin 3.1 g/dl (3.5-5.0); Alkaline Phosphatase 102 U/L (38-126); Total Protein 5.5 g/dl (6.3-8.2)
[2024-12-19 15:18] VITALS: BP 141/80
[2024-12-19 15:36] VITALS: BP 151/81
[2024-12-19] MEDS: KCL 40 MEQ PO ×2 (15:49→18:00)
[2024-12-19 17:00] LABS: Glucose - Point of Care 94 mg/dl (70-99)
[2024-12-19] MEDS: LOVENOX 40 MG SC (17:07)
[2024-12-19 21:33] LABS: Glucose - Point of Care 85 mg/dl (70-99)
[2024-12-19] MEDS: COLACE PO (21:41)
[2024-12-19] MEDS: SEROQUEL 75 MG PO (21:43)
[2024-12-19] MEDS: SENOKOT PO (21:45)
[2024-12-19] MEDS: PEPCID 40 MG PO (21:45)
[2024-12-19] MEDS: MELATONIN 5 MG PO (21:45)
[2024-12-19] MEDS: SINEMET CR 50/200 (EXTENDED RELEASE) 1 TABLET PO (21:50)
[2024-12-19] MEDS: TOPROL XL 12.5 MG PO (21:50)
[2024-12-19] MEDS: LIPITOR 40 MG PO (21:50)
[2024-12-19] MEDS: PLAQUENIL 200 MG PO (22:00)
[2024-12-19 23:13] VITALS: BP 145/66
[2024-12-20 03:13] LABS: Glucose - Point of Care 90 mg/dl (70-99)
--- NOTE | 2024-12-20 03:47 | DOWNTIME ---
There was a [employer] Client Or First Assist Registered Nurse Downtime on 12/20/2024 from 0100 to 12/20/2024 at 0215. Downtime documentation of patient's care, including medication administrations, has been reconciled in the electronic record per guidelines. Refer to the
patient's paper chart under the miscellaneous tab to see printed paper medication records and downtime forms.
[2024-12-20] MEDS: SYNTHROID 137 MCG PO (04:50)
[2024-12-20 07:26] LABS: Hematocrit 42.3 % (37.0-47.0); Hemoglobin 13.8 g/dL (12.0-16.0); Mean Corp Hgb Conc. 32.6 g/dL (33.0-37.0); Mean Corpuscular Volume 81.5 fL (81.0-99.0); Platelet Count 227 10^3/uL (130-400); Red Cell Dist. Width 13.0 % (11.5-14.5)
[2024-12-20 07:51] VITALS: BP 155/93
[2024-12-20 07:52] LABS: Blood Urea Nitrogen 12 mg/dl (7-17); Calcium 8.8 mg/dl (8.4-10.2); Carbon Dioxide 32 mmol/L (22-30); Chloride 98 mmol/L (98-107); Estimated Creatinine Clearance 65 ml/min; Glucose 82 mg/dl (70-99); Potassium 3.8 mmol/L (3.5-5.1); Sodium 132 mmol/L (135-145); eGFR > 60.00
[2024-12-20] MEDS: NON-FORMULARY ITEM 34 MG PO (08:06)
[2024-12-20] MEDS: NON-FORMULARY ITEM 2 CAP PO ×3 (08:07→21:07)
[2024-12-20] MEDS: SEROQUEL 25 MG PO (08:07)
[2024-12-20 08:25] LABS: Glucose - Point of Care 86 mg/dl (70-99)
[2024-12-20 08:52] VITALS: BP 155/93; BP 162/94; BP 199/110; PULSE 60; PULSE 68; PULSE 79
--- NOTE | 2024-12-20 08:58 | W.PN.GI.CBS2 ---
Addendum entered and electronically signed by TIARA Gimenez 12/21/24 06:05:
added UGI/SBFT to also follow up on enteritis seen on CT
Addendum entered and electronically signed by TIARA Gimenez 12/20/24 16:34:
reviewed with speech-- noted with some hiccups and slow to eat with gagging and concern for vomiting. Will proceed with esophagram to assess for any esophageal dysmotility, stricture etc. -- daughter updated
Addendum entered and electronically signed by TIARA Gimenez 12/20/24 13:39:
12/20 obst series:
Nonobstructive bowel gas pattern. Mild stool and contrast material in the sigmoid colon and rectum. Colonic diverticulosis. No appreciable intraperitoneal free air. No abnormal soft tissue calcifications.
The lungs are clear.
A generator pack projects over the right chest wall.
Chronic degenerative changes of the spine. Mild lumbar levoscoliosis.
reviewed with daughter Barbi [phone]-- noted with vomiting last few week but last 2 weeks daily in AM then later in day as symptoms worsened. Would continue to treat constiaption. If not improving t/c CTE vs MRE to confirm if enteritis still
seen if patient can tolerate contrast.
will also add TSH
Addendum entered and electronically signed by Merly Strickland DO 12/20/24 13:34:
The patient was seen and examined by me independently in collaboration with the nurse practitioner.
Past medical history/social history/medications/allergies/family history reviewed.
Lab data and imaging data reviewed.
Patient seen in follow-up. She states dinner did not go as well last night. She only had 1 small BM. The day prior, had a large BM, subsequently, appetite was much better and she tolerated her meals without N/V. After I saw her early this morning,
she vomited. Obstruct series was performed, no evidence of obstruction, it does demonstrate stool burden in sigmoid and rectum.
-Recommend giving enema, see if this helps as I do feel constipation is contributing, although, GI symptoms are likely multifactorial
Will follow
Original Note:
Today's Communication / Plan
-
etiology of nausea /vomiting with decreased appetite related to possible enteritis on CT, constipation, vs other
she now had recurrent large volume emesis this am and noted with hiccups
will check obstruction series
if continued issues may need to consider SB imaging with question of enteritis on prior CT
she had large stool 12/18 and small stool 12/19
cont bowel regiment for now with Miralax/senna and colace-- pending imaging may need to change
correct Na per medical team
monitor intakes
cont parkinson medications
repeat LFT's with mild elevation on admission repeat normal
pt would be due for follow up colonoscopy but with multiple medical problems she is not sure she would want to proceed and prefers to see how she does at this time with bowel regiment being added -- OP follow up as likely would not tolerating prep
reviewed with nursing staff
Assessment / Plan
-
Pt is a 78yo presents with hx SLE, parkinson's, CAD with prior stenting, colon polyps, GERD, HTN, hyperlipidemia, hypothyroidism, myelofibrosis, prior brain surgery, breast reduction with admission 12/15 with abdominal pain with nausea and vomiting.
In review PCP noted prior to admission noted with recent wt loss of 15 lbs since October. Since admission noted with stable CBC, persistent hyponatremia with Na 129-130, K 3.1, initial aimee 1.5 and alk phos 129 with normal transaminases. She
also had [address] with last 12/16 did question enteritis and SB wall thickening otherwise stable. She also admits to change in Parkinson meds with now extended release and per nursing staff was off for several days now restarted. In
reviewing with patient chronic decreased appetite. She also admits to chronic constipation and lower abdominal pain. She was having some nausea and vomiting but not noted per staff last 2 days. Abdominal pain is better with tums and BM's. She did
have large stools 12/18 then did eat better today. She was taking Miralax minimally as needed prior to admission but now placed on Miralax daily and colace BID.
-wt loss with decreased appetite
-vomiting
-abdominal pain
-CT with possible enteritis
-constipation
-hx parkinson's with change to long acting medication
-hyponatremia
-mild bili and alk phos elevation
other med problems:
SLE,CAD with prior stenting, colon polyps, GERD, HTN, hyperlipidemia, hypothyroidism, myelofibrosis, prior brain surgery, breast reduction
PLAN:
etiology of nausea /vomiting with decreased appetite related to possible enteritis on CT, constipation, vs other
she now had recurrent large volume emesis this am and noted with hiccups
will check obstruction series
if continued issues may need to consider SB imaging with question of enteritis on prior CT
she had large stool 12/18 and small stool 12/19
cont bowel regiment for now with Miralax/senna and colace-- pending imaging may need to change
correct Na per medical team
monitor intakes
cont parkinson medications
repeat LFT's with mild elevation on admission repeat normal
pt would be due for follow up colonoscopy but with multiple medical problems she is not sure she would want to proceed and prefers to see how she does at this time with bowel regiment being added -- OP follow up as likely would not tolerating prep
reviewed with nursing staff
Subjective
Subjective
Date of Service: December 20, 2024
noted with large amount of yellow emesis this am, took some pills and juice and noted with hiccups
12/19 small stool when seen yesterday-- variable intakes 0- 75 %
Objective
Data Reviewed
Laboratory Data:
Laboratory Results
12/20/24 07:02
12/20/24 07:02
Laboratory Results
Magnesium 1.7 mg/dl (1.6-2.3) 12/16/24 05:01
Total Bilirubin 0.8 mg/dl (0.2-1.3) 12/19/24 09:14
AST 21 U/L (14-36) 12/19/24 09:14
ALT 12 U/L (0-35) 12/19/24 09:14
Alkaline Phosphatase 102 U/L (38-126) 12/19/24 09:14
Lipase 220 U/L (23-300) 12/15/24 19:10
Vital Signs and I&O:
Vital Signs
Temp Pulse Resp BP Pulse Ox
97.1 F 60 16 155/93 95
12/20/24 07:51 12/20/24 07:51 12/20/24 07:51 12/20/24 07:51 12/20/24 07:51
I&O
12/19/24 12/20/24 12/21/24
06:59 06:59 06:59
Intake Total 960 / 960
Balance 960 / 960
Physical Exam
Physical Exam
HEENT: Anicteric and Moist mucous membranes
Cardiology: Normal Sinus Rhythm
Pulmonary: Clear
GI: Soft, Distended (mild ) and Non Tender
Extremities: No Edema
Neuro: Non Focal (soft speech but conversant )
[2024-12-20] MEDS: ZESTRIL 40 MG PO (10:47)
[2024-12-20] MEDS: LOW STRENGTH ASPIRIN 81 MG PO (10:47)
[2024-12-20] MEDS: PROTONIX 40 MG PO (10:48)
[2024-12-20] MEDS: MIRALAX PO (10:48)
[2024-12-20] MEDS: ORETIC 25 MG PO (10:48)
[2024-12-20] MEDS: EXELON 6 MG PO ×2 (10:48→20:45)
[2024-12-20] MEDS: COLACE 100 MG PO ×2 (10:48→20:45)
[2024-12-20 12:00] LABS: Glucose - Point of Care 48 mg/dl (70-99)
[2024-12-20 12:19] LABS: Glucose - Point of Care 109 mg/dl (70-99)
--- NOTE | 2024-12-20 12:22 | PTCARENOTE ---
Pt BS 48 at lunchtime. MD made aware, Pt is drowsy but arousable to drink juice. Rechecked 15 minutes later and she was 108. Pt is not eating or drinking on her own, aware
--- NOTE | 2024-12-20 12:50 | W.PN.HOSP.TC ---
Today's Communication/Plan
-
Assessment / Plan
Assessment / Plan
A/P: Patient is an 78y F with PMH significant for Parkinson's disease, ASCVD and hypertension who presents to ED complaining of about four weeks of abdominal discomfort and N/V.
NAD
Scleral Anicteric
MMM
No JVD
CTABL
RRR, S1/S2
Soft, NT, ND, BS+
Warm, Dry
AAOx3
Calm
N/V with abdominal pain and weight loss. Symptomatology ongoing x [address] abdomen pelvis reviewed demonstrating some right lower quadrant small bowel thickening could be enteritis
Strange for infectious enteritis to be ongoing for more than 2 weeks.
Will have GI eval
- Ordered a obstruction series that demonstrated nonobstructive bowel gas pattern. Mild stool contrast material in sigmoid colon/rectum. Colonic diverticulosis
-May need additional small bowel imaging. Appreciate GI input
Continue current diet
If eating less start IV fluids dextrose containing
Hypoglycemia
Hypoglycemic protocol
Will begin dextrose containing fluids
Parkinson's Disease with history of agitation so was put on Nuplazid
- Patient states neurologist at [facility] on the current regimen of medicine apparently is keeping the symptoms under control mostly. Will continue with her regimen.
Acute agitation-unclear if this is Parkinson disease related cognitive issue or missing her Nuplazid. Apart from GI symptom as above no obvious other infectious concern. Mild natremia noted but I doubt that has any relation to agitation. She had
prior episodes of agitation during hospitalization. Suspect sundowning and missing medication.
Daughter brought Nuplazid. Continue with other Parkinson's medicine. If continued agitation consult neurology.
ASCVD
- Continue ASA daily uninterrupted.
- Continue statin
Hypothyroidism
- Continue T4 supplementation.
Lupus
- No acute rashes / skin changes / joint pain / etc.
DVT Prophylaxis: Lovenox
Code Status: DNR
Anticipated Discharge: 24 - 48 hours
Subjective/Interval History
-
Date of Service: December 20, 2024
Seen and examined. This morning had a large-volume bout of vomiting. 1 episode
Also hypoglycemic after that to 48
Drink some orange juice. Had some dextrose.
Obstruction series was obtained without evidence of obstruction
Objective Data
-
Labs:
Laboratory Results
12/20/24
07:02
WBC 6.6
Hgb 13.8
Hct 42.3
Plt Count 227
Sodium 132 L
Potassium 3.8
Chloride 98
Carbon Dioxide 32 H
BUN 12
Creatinine 0.6
Glucose 82
Calcium 8.8
Vital Signs:
Vital Signs
Temp Pulse Resp BP Pulse Ox
97.1 F 60 16 155/93 95
12/20/24 07:51 12/20/24 07:51 12/20/24 07:51 12/20/24 07:51 12/20/24 08:15
I&O
12/19/24 12/20/24 12/21/24
06:59 06:59 06:59
Intake Total 960 / 960
Balance 960 / 960
[2024-12-20] MEDS: D5/0.45%NACL 1000 IV (12:59)
[2024-12-20 13:24] LABS: B.E. 5.2 mmol/L; HCO3 29.0 mmol/L (21-28); O2 Saturation % 98.0 % (94-98); PCO2 39 mmHg (32-35); PO2 76 mmHg (83-108)
[2024-12-20 14:37] LABS: Glucose - Point of Care 111 mg/dl (70-99)
[2024-12-20 15:44] VITALS: BP 161/86
--- NOTE | 2024-12-20 16:10 | PTOTSP ---
ST Follow-Up
Pt currently presents with a fairly functional oropharyngeal swallow for pureed solids and thin liquids; however, there appears to be some extent of GI dysfunction that has been resulting in persistent gagging and vomiting on a daily basis that
places pt at a high risk for post-prandial aspiration.
Pt may benefit from a more liquid-like diet at this time, but will defer to GI and/or primary team for diet consistency recommendation at this time. GI to perhaps consider esophagram? Highest solid recommendation recommended by INDOOR LANDSCAPER/GARDENER team (based on
initial evaluation) would be soft bite sized solids. Recommending the continuation of aspiration precautions and STRICT REFLUX precautions. INDOOR LANDSCAPER/GARDENER will continue to follow closely.
[2024-12-20 16:26] LABS: TSH 0.52 uIU/ml (0.47-4.68)
[2024-12-20 16:54] LABS: Glucose - Point of Care 96 mg/dl (70-99)
[2024-12-20] MEDS: LOVENOX SC (17:14)
--- NOTE | 2024-12-20 17:38 | CM ---
IMM provided to dtr Barbi over the phone in lieu of pt's intermittent cognition deficits. Still having episodes of vomiting.
Dtr would like to see if pt's PT evaluation improves over time to go back to Personal care at [facility]. Dtr is comfortable with having Pt go back to [facility], but she does not want the patient to go to the [facility] facility, [place]. Will
continue to follow for discharge needs
Plan: TBD
[2024-12-20 19:55] VITALS: BP 147/71; BP 157/84; BP 167/93; PULSE 65; PULSE 71; PULSE 79
[2024-12-20] MEDS: PLAQUENIL 400 MG PO (20:45)
[2024-12-20] MEDS: SEROQUEL 75 MG PO (21:05)
[2024-12-20] MEDS: MELATONIN 5 MG PO (21:05)
[2024-12-20] MEDS: TOPROL XL 12.5 MG PO (21:06)
[2024-12-20] MEDS: SENOKOT 17.2 MG PO (21:06)
[2024-12-20] MEDS: LIPITOR 40 MG PO (21:06)
[2024-12-20] MEDS: SINEMET CR 50/200 (EXTENDED RELEASE) 1 TABLET PO (21:07)
[2024-12-20] MEDS: PEPCID 40 MG PO (21:07)
[2024-12-20] MEDS: ZOFRAN 4 MG IV (21:18)
[2024-12-20 21:29] LABS: Glucose - Point of Care 94 mg/dl (70-99)
[2024-12-20 23:30] VITALS: BP 127/67
[2024-12-21] MEDS: D5/0.45%NACL 1000 IV ×2 (01:07→12:40)
[2024-12-21] MEDS: COMPAZINE 10 MG IV (01:45)
[2024-12-21 03:01] LABS: Glucose - Point of Care 121 mg/dl (70-99)
[2024-12-21] MEDS: SYNTHROID PO (03:23)
[2024-12-21 05:36] LABS: Glucose - Point of Care 106 mg/dl (70-99)
[2024-12-21 07:00] VITALS: BP 156/73
[2024-12-21 08:06] LABS: Hematocrit 39.4 % (37.0-47.0); Hemoglobin 12.8 g/dL (12.0-16.0); Mean Corp Hgb Conc. 32.5 g/dL (33.0-37.0); Mean Corpuscular Volume 81.2 fL (81.0-99.0); Platelet Count 219 10^3/uL (130-400); Red Cell Dist. Width 12.9 % (11.5-14.5)
[2024-12-21 08:15] LABS: Blood Urea Nitrogen 10 mg/dl (7-17); Calcium 8.6 mg/dl (8.4-10.2); Carbon Dioxide 32 mmol/L (22-30); Chloride 97 mmol/L (98-107); Estimated Creatinine Clearance 65 ml/min; Glucose 103 mg/dl (70-99); Potassium 3.8 mmol/L (3.5-5.1); Sodium 132 mmol/L (135-145); eGFR > 60.00
[2024-12-21] MEDS: COLACE PO ×2 (08:30→20:30)
[2024-12-21] MEDS: NON-FORMULARY ITEM PO ×3 (08:30→21:28)
[2024-12-21] MEDS: EXELON PO ×3 (08:30→20:48)
[2024-12-21] MEDS: ORETIC PO (08:30)
[2024-12-21] MEDS: MIRALAX PO (08:30)
[2024-12-21] MEDS: LOW STRENGTH ASPIRIN PO (08:30)
[2024-12-21] MEDS: ZESTRIL PO (08:31)
[2024-12-21] MEDS: SEROQUEL PO ×2 (08:31→21:28)
[2024-12-21] MEDS: PROTONIX PO (08:31)
--- NOTE | 2024-12-21 09:11 | PN.CDI ---
CDI
- -
CDI:
Physician Documentation Request
Admit Date: 12/18/24 14:31
Dear Doctor Matthew,
Please review the following and provide your response in the progress notes.
Clinical Indicators:
Pt admitted with enteritis/constipation / Nausea /Vomiting weight loss for 4 weeks
Potassium levels are as below/Per MAR pt did get 40 Meq KCL x 2 doses on 12/19
Laboratory Tests
12/18/24 12/19/24
08:40 09:14
Potassium 3.3 L D 3.1 L
Based on the above, could you clarify in the progress notes, the appropriate diagnosis, if significant, that supports the above abnormalities and additional evaluation, monitoring and/or treatment rendered:
Hypokalemia
Abnormal lab value
Other ( please specify)
Use of terms such as suspected, likely, concern for, or probable (associated with a specific diagnosis that is being evaluated, monitored, or treated as if it exists) are acceptable and can be coded in the inpatient setting, when documented at the
time of discharge.
Thank you,
Skylar Rodriguez RN
CDI Specialist
[facility]
Please use your independent medical judgment in providing your response.
[2024-12-21 10:25] VITALS: BP 154/84
[2024-12-21 11:45] LABS: Glucose - Point of Care 88 mg/dl (70-99)
--- NOTE | 2024-12-21 11:49 | W.PN.GI.CBS2 ---
Addendum entered and electronically signed by Merly Strickland DO 12/21/24 12:34:
The patient was seen and examined by me independently in collaboration with the nurse practitioner.
Past medical history/social history/medications/allergies/family history reviewed.
Lab data and imaging data reviewed.
Appetite/nausea/vomiting improved with increased bowel regimen. Continues to have stools
Attempted to get UGI w/ SBFT today, however machine is down, will be performed tomorrow
I do feel her issues are multifactorial, her hyponatremia is likely a large contributing factor in addition to her parkinsons
Original Note:
Today's Communication / Plan
-
etiology of nausea /vomiting with decreased appetite related to possible enteritis on CT, constipation, vs other
UGI/SBFT/esophagram changed to tomorrow per radiology
ate well this am per nursing staff
continues to have stools cont bowel regiment with miralax, senna and colace
cont parkinson meds
cont bowel regiment for now with Miralax/senna and colace-- pending imaging may need to change
correct Na per medical team
monitor intakes
pt would be due for follow up colonoscopy but with multiple medical problems she is not sure she would want to proceed and prefers to see how she does at this time with bowel regiment being added -- OP follow up as likely would not tolerating prep
reviewed with nursing staff
I updated daughter 12/20
Assessment / Plan
-
Pt is a 78yo presents with hx SLE, parkinson's, CAD with prior stenting, colon polyps, GERD, HTN, hyperlipidemia, hypothyroidism, myelofibrosis, prior brain surgery, breast reduction with admission 12/15 with abdominal pain with nausea and vomiting.
In review PCP noted prior to admission noted with recent wt loss of 15 lbs since October. Since admission noted with stable CBC, persistent hyponatremia with Na 129-130, K 3.1, initial aimee 1.5 and alk phos 129 with normal transaminases. She
also had [address] with last 12/16 did question enteritis and SB wall thickening otherwise stable. She also admits to change in Parkinson meds with now extended release and per nursing staff was off for several days now restarted. In
reviewing with patient chronic decreased appetite. She also admits to chronic constipation and lower abdominal pain. She was having some nausea and vomiting but not noted per staff last 2 days. Abdominal pain is better with tums and BM's. She did
have large stools 12/18 then did eat better today. She was taking Miralax minimally as needed prior to admission but now placed on Miralax, colace, senna and given enema.
12/20/24 CR Obstruct Series W/pa Chest
Nonobstructive bowel gas pattern. Mild stool and contrast material in the sigmoid colon and rectum. Colonic diverticulosis. No appreciable intraperitoneal free air. No abnormal soft tissue calcifications.
The lungs are clear.
A generator pack projects over the right chest wall.
Chronic degenerative changes of the spine. Mild lumbar levoscoliosis.
-wt loss with decreased appetite
-vomiting with hiccups
-abdominal pain
-CT with possible enteritis
-constipation
-hx parkinson's with change to long acting medication
-hyponatremia
-mild bili and alk phos elevation
other med problems:
SLE,CAD with prior stenting, colon polyps, GERD, HTN, hyperlipidemia, hypothyroidism, myelofibrosis, prior brain surgery, breast reduction
PLAN:
etiology of nausea /vomiting with decreased appetite related to possible enteritis on CT, constipation, vs other
UGI/SBFT/esophagram changed to tomorrow per radiology
ate well this am per nursing staff
continues to have stools cont bowel regiment with miralax, senna and colace
cont parkinson meds
cont bowel regiment for now with Miralax/senna and colace-- pending imaging may need to change
correct Na per medical team
monitor intakes
pt would be due for follow up colonoscopy but with multiple medical problems she is not sure she would want to proceed and prefers to see how she does at this time with bowel regiment being added -- OP follow up as likely would not tolerating prep
reviewed with nursing staff
I updated daughter 12/20
Subjective
Subjective
Date of Service: December 21, 2024
per staff ate well this am but now with some nausea and hiccups -- UGI/SBFT/esophagram change to tomorrow per radiology, + stool 12/20
Objective
Data Reviewed
Laboratory Data:
Laboratory Results
12/21/24 06:18
12/21/24 06:18
Laboratory Results
Magnesium 1.7 mg/dl (1.6-2.3) 12/16/24 05:01
Total Bilirubin 0.8 mg/dl (0.2-1.3) 12/19/24 09:14
AST 21 U/L (14-36) 12/19/24 09:14
ALT 12 U/L (0-35) 12/19/24 09:14
Alkaline Phosphatase 102 U/L (38-126) 12/19/24 09:14
Lipase 220 U/L (23-300) 12/15/24 19:10
Vital Signs and I&O:
Vital Signs
Temp Pulse Resp BP Pulse Ox
98.0 F 71 24 154/84 100
12/21/24 10:25 12/21/24 10:25 12/21/24 10:25 12/21/24 10:25 12/21/24 10:25
I&O
12/20/24 12/21/24 12/22/24
06:59 06:59 06:59
Intake Total 960 / 960 194 / 194
Output Total 500 / 500
Balance 960 / 960 1444 / 1444
Physical Exam
Physical Exam
HEENT: Anicteric and Moist mucous membranes
Cardiology: Normal Sinus Rhythm
Pulmonary: Clear and Other (noted with hiccups in exam )
GI: Soft, Non Distended and Non Tender
Extremities: No Edema
Neuro: Other (soft speech, but conversant )
[2024-12-21] MEDS: SINEMET 25-100 1 TABLET PO (13:21)
--- NOTE | 2024-12-21 13:36 | W.PN.HOSP.TC ---
Addendum entered and electronically signed by Cuco Castro MD 12/21/24 17:32:
Hypokalemia
Original Note:
Today's Communication/Plan
-
Assessment / Plan
Assessment / Plan
A/P: Patient is an 78y F with PMH significant for Parkinson's disease, ASCVD and hypertension who presents to ED complaining of about four weeks of abdominal discomfort and N/V.
NAD
Scleral Anicteric
MMM
No JVD
CTABL
RRR, S1/S2
Soft, NT, ND, BS+
Warm, Dry
AAOx3
Calm
N/V with abdominal pain and weight loss. Symptomatology ongoing x [address] abdomen pelvis reviewed demonstrating some right lower quadrant small bowel thickening could be enteritis
Strange for infectious enteritis to be ongoing for more than 2 weeks.
Will have GI eval
- Ordered a obstruction series that demonstrated nonobstructive bowel gas pattern. Mild stool contrast material in sigmoid colon/rectum. Colonic diverticulosis
-May need additional small bowel imaging. Appreciate GI input
- Have ordered a esophagram
-GI believes that this could also be related to a hypopneic [place] episode however she is chronically hyponatremic ranging between 129 and 132. I have a very low clinical suspicion that hyponatremia to this extent causes symptoms
Continue current diet
If eating less start IV fluids dextrose containing
Hypoglycemia
Hypoglycemic protocol
Will begin dextrose containing fluids
Parkinson's Disease with history of agitation so was put on Nuplazid
- Patient states neurologist at [facility] on the current regimen of medicine apparently is keeping the symptoms under control mostly. Will continue with her regimen.
Acute agitation-unclear if this is Parkinson disease related cognitive issue or missing her Nuplazid. Apart from GI symptom as above no obvious other infectious concern. Mild natremia noted but I doubt that has any relation to agitation. She had
prior episodes of agitation during hospitalization. Suspect sundowning and missing medication.
Daughter brought Nuplazid. Continue with other Parkinson's medicine. If continued agitation consult neurology.
ASCVD
- Continue ASA daily uninterrupted.
- Continue statin
Hypothyroidism
- Continue T4 supplementation.
Lupus
- No acute rashes / skin changes / joint pain / etc.
DVT Prophylaxis: Lovenox
Code Status: DNR
Anticipated Discharge: > 48 hours
Subjective/Interval History
-
Date of Service: December 21, 2024
Seen and examined. No new complaints. No acute overnight events.
Objective Data
-
Labs:
Laboratory Results
12/21/24
06:18
WBC 5.8
Hgb 12.8
Hct 39.4
Plt Count 219
Sodium 132 L
Potassium 3.8
Chloride 97 L
Carbon Dioxide 32 H
BUN 10
Creatinine 0.6
Glucose 103 H
Calcium 8.6
Vital Signs:
Vital Signs
Temp Pulse Resp BP Pulse Ox
98.0 F 71 24 154/84 100
12/21/24 10:25 12/21/24 10:25 12/21/24 10:25 12/21/24 10:25 12/21/24 10:25
I&O
12/20/24 12/21/24 12/22/24
06:59 06:59 06:59
Intake Total 960 / 960 1944 / 1944
Output Total 500 / 500
Balance 960 / 960 1444 / 1444
[2024-12-21] MEDS: NON-FORMULARY ITEM 34 MG PO (13:51)
[2024-12-21 13:53] VITALS: BP 137/75; BP 147/77; BP 149/79; PULSE 73; PULSE 79; PULSE 91
[2024-12-21 15:03] VITALS: BP 155/70
[2024-12-21 16:00] VITALS: BP 153/81
[2024-12-21] MEDS: NON-FORMULARY ITEM 2 CAP PO (16:01)
[2024-12-21 17:11] LABS: Glucose - Point of Care 95 mg/dl (70-99)
--- NOTE | 2024-12-21 17:13 | CM ---
Referral placed to [facility]. PT still recommending SNF. Daughter is currently reluctant to make DC plans; is waiting for pt to improve.
Plan: SNF vs personal care with additional supportive services
[2024-12-21] MEDS: LOVENOX 40 MG SC (17:45)
[2024-12-21] MEDS: PLAQUENIL PO ×2 (20:35→20:53)
--- NOTE | 2024-12-21 20:54 | PTCARENOTE ---
Addendum entered by Bossman Orr RN 12/21/24 21:30:
Pt c/o nausea see MAR. Pt is to unable to swallow meds.
Original Note:
Pt unable to swallow pills whole or crush. Will reassess and attempt taking pills again next time. Pt feel nauseas and gags when attempting to take oral medications.
[2024-12-21 21:06] LABS: Glucose - Point of Care 91 mg/dl (70-99)
[2024-12-21] MEDS: TOPROL XL PO (21:28)
[2024-12-21] MEDS: MELATONIN PO (21:28)
[2024-12-21] MEDS: LIPITOR PO (21:28)
[2024-12-21] MEDS: SINEMET CR 50/200 (EXTENDED RELEASE) PO (21:28)
[2024-12-21] MEDS: PEPCID PO (21:28)
[2024-12-21] MEDS: SENOKOT PO (21:28)
[2024-12-21] MEDS: ZOFRAN 4 MG IV (21:32)
[2024-12-21 23:34] VITALS: BP 141/75
[2024-12-22] VITALS (7 sets, daily range): BP systolic 139–195; BP diastolic 83–105; PULSE 71–92; BMI 26.8
[2024-12-22] MEDS: D5/0.45%NACL 1000 IV ×2 (01:34→15:26)
[2024-12-22] MEDS: SYNTHROID PO (03:56)
[2024-12-22 05:07] LABS: Glucose - Point of Care 91 mg/dl (70-99)
[2024-12-22] MEDS: NON-FORMULARY ITEM PO ×2 (07:53→07:54)
[2024-12-22] MEDS: MIRALAX PO (07:54)
[2024-12-22] MEDS: SEROQUEL PO (07:54)
[2024-12-22] MEDS: ORETIC PO (07:54)
[2024-12-22] MEDS: LOW STRENGTH ASPIRIN PO (07:54)
[2024-12-22] MEDS: PROTONIX PO (07:54)
[2024-12-22] MEDS: EXELON PO (07:54)
[2024-12-22] MEDS: ZESTRIL PO (07:54)
[2024-12-22] MEDS: COLACE PO (07:54)
[2024-12-22 08:18] LABS: Hematocrit 42.7 % (37.0-47.0); Hemoglobin 14.0 g/dL (12.0-16.0); Mean Corp Hgb Conc. 32.8 g/dL (33.0-37.0); Mean Corpuscular Volume 79.7 fL (81.0-99.0); Platelet Count 220 10^3/uL (130-400); Red Cell Dist. Width 12.8 % (11.5-14.5)
[2024-12-22 08:35] LABS: Blood Urea Nitrogen 9 mg/dl (7-17); Calcium 8.5 mg/dl (8.4-10.2); Carbon Dioxide 24 mmol/L (22-30); Chloride 102 mmol/L (98-107); Estimated Creatinine Clearance 65 ml/min; Glucose 97 mg/dl (70-99); Potassium 3.6 mmol/L (3.5-5.1); Sodium 130 mmol/L (135-145); eGFR > 60.00
[2024-12-22] MEDS: SINEMET 25-100 1 TABLET PO (11:40)
[2024-12-22] MEDS: ZOFRAN 4 MG IV (11:40)
[2024-12-22 12:03] LABS: Glucose - Point of Care 103 mg/dl (70-99)
--- NOTE | 2024-12-22 13:45 | W.PN.HOSP.TC ---
Today's Communication/Plan
-
Assessment / Plan
Assessment / Plan
A/P: Patient is an 78y F with PMH significant for Parkinson's disease, ASCVD and hypertension who presents to ED complaining of about four weeks of abdominal discomfort and N/V.
NAD
Scleral Anicteric
MMM
No JVD
CTABL
RRR, S1/S2
Soft, NT, ND, BS+
Warm, Dry
AAOx3
Calm
N/V with abdominal pain and weight loss. Symptomatology ongoing x [address] abdomen pelvis reviewed demonstrating some right lower quadrant small bowel thickening could be enteritis
Strange for infectious enteritis to be ongoing for more than 2 weeks.
Will have GI eval
- Ordered a obstruction series that demonstrated nonobstructive bowel gas pattern. Mild stool contrast material in sigmoid colon/rectum. Colonic diverticulosis
-May need additional small bowel imaging. Appreciate GI input
-Esophogram demonstrating presbyesophagus, GI consulted
-GI believes that this could also be related to a hyponatremic episode however she is chronically hyponatremic ranging between 129 and 132. I have a very low clinical suspicion that hyponatremia to this extent causes symptoms
Continue current diet
If eating less start IV fluids dextrose containing
Hypoglycemia
Hypoglycemic protocol
Will begin dextrose containing fluids
Parkinson's Disease with history of agitation so was put on Nuplazid
- Patient states neurologist at [facility] on the current regimen of medicine apparently is keeping the symptoms under control mostly. Will continue with her regimen.
Acute agitation-unclear if this is Parkinson disease related cognitive issue or missing her Nuplazid. Apart from GI symptom as above no obvious other infectious concern. Mild natremia noted but I doubt that has any relation to agitation. She had
prior episodes of agitation during hospitalization. Suspect sundowning and missing medication.
Daughter brought Nuplazid. Continue with other Parkinson's medicine. If continued agitation consult neurology.
ASCVD
- Continue ASA daily uninterrupted.
- Continue statin
Hypothyroidism
- Continue T4 supplementation.
Lupus
- No acute rashes / skin changes / joint pain / etc.
DVT Prophylaxis: Lovenox
Code Status: DNR
Anticipated Discharge: 24 - 48 hours
Subjective/Interval History
-
Date of Service: December 22, 2024
seen and examined. no new compalints. no acute ovenright events
Objective Data
-
Labs:
Laboratory Results
12/22/24
07:36
WBC 5.6
Hgb 14.0
Hct 42.7
Plt Count 220
Sodium 130 L
Potassium 3.6
Chloride 102
Carbon Dioxide 24
BUN 9
Creatinine 0.6
Glucose 97
Calcium 8.5
Vital Signs:
Vital Signs
Temp Pulse Resp BP Pulse Ox
97.1 F 74 20 148/83 100
12/22/24 08:20 12/22/24 13:03 12/22/24 08:20 12/22/24 13:03 12/22/24 09:00
I&O
12/21/24 12/22/24 12/23/24
06:59 06:59 06:59
Intake Total 1943
Output Total 500 / 500 325 / 325
Balance 1444 / 1444 -325 / -325
--- NOTE | 2024-12-22 15:10 | W.PN.GI.CBS2 ---
Today's Communication / Plan
-
Only able to do esophagram due to intolerance of barium, showed presbyesophagus
Tolerating diet at this time, no vomiting
Perhaps bowel regimen is helping
Cont miralax, senna and colace
Parkinsons also a likely contributor
correct Na per medical team
monitor intake
If not doing well, could do MRE to eval enteritis on CT since she could not do SBFT, but prior CT did not show enteritis, may be self limited finding
Assessment / Plan
-
Pt is a 78yo presents with hx SLE, parkinson's, CAD with prior stenting, colon polyps, GERD, HTN, hyperlipidemia, hypothyroidism, myelofibrosis, prior brain surgery, breast reduction with admission 12/15 with abdominal pain with nausea and vomiting.
In review PCP noted prior to admission noted with recent wt loss of 15 lbs since October. Since admission noted with stable CBC, persistent hyponatremia with Na 129-130, K 3.1, initial aimee 1.5 and alk phos 129 with normal transaminases. She
also had [address] with last 12/16 did question enteritis and SB wall thickening otherwise stable. She also admits to change in Parkinson meds with now extended release and per nursing staff was off for several days now restarted. In
reviewing with patient chronic decreased appetite. She also admits to chronic constipation and lower abdominal pain. She was having some nausea and vomiting but not noted per staff last 2 days. Abdominal pain is better with tums and BM's. She did
have large stools 12/18 then did eat better today. She was taking Miralax minimally as needed prior to admission but now placed on Miralax, colace, senna and given enema.
12/20/24 CR Obstruct Series W/pa Chest
Nonobstructive bowel gas pattern. Mild stool and contrast material in the sigmoid colon and rectum. Colonic diverticulosis. No appreciable intraperitoneal free air. No abnormal soft tissue calcifications.
The lungs are clear.
A generator pack projects over the right chest wall.
Chronic degenerative changes of the spine. Mild lumbar levoscoliosis.
-wt loss with decreased appetite
-vomiting with hiccups
-abdominal pain
-CT with possible enteritis
-constipation
-hx parkinson's with change to long acting medication
-hyponatremia
-mild bili and alk phos elevation
other med problems:
SLE,CAD with prior stenting, colon polyps, GERD, HTN, hyperlipidemia, hypothyroidism, myelofibrosis, prior brain surgery, breast reduction
Subjective
Subjective
Date of Service: December 22, 2024
Not much appetite but tolerated diet. No vomiting. Having some BMs
Objective
Data Reviewed
Laboratory Data:
Laboratory Results
12/22/24 07:36
12/22/24 07:36
Laboratory Results
Magnesium 1.7 mg/dl (1.6-2.3) 12/16/24 05:01
Total Bilirubin 0.8 mg/dl (0.2-1.3) 12/19/24 09:14
AST 21 U/L (14-36) 12/19/24 09:14
ALT 12 U/L (0-35) 12/19/24 09:14
Alkaline Phosphatase 102 U/L (38-126) 12/19/24 09:14
Lipase 220 U/L (23-300) 12/15/24 19:10
Vital Signs and I&O:
Vital Signs
Temp Pulse Resp BP Pulse Ox
97.1 F 74 20 148/83 100
12/22/24 08:20 12/22/24 13:03 12/22/24 08:20 12/22/24 13:03 12/22/24 09:00
I&O
12/21/24 12/22/24 12/23/24
06:59 06:59 06:59
Intake Total 1943 / 1943
Output Total 500 / 500 325 / 325
Balance 1444 / 1444 -325 / -325
Physical Exam
Physical Exam
GI: Soft, Non Distended and Non Tender
[2024-12-22] MEDS: NON-FORMULARY ITEM 2 CAP PO ×2 (15:25→21:34)
--- NOTE | 2024-12-22 15:29 | CM ---
GI symptoms still in workup. On IVF. No change in DC plan
[facility] has no SNF beds available at this time. They suggest sending referrals to [facility]or [facility]; Dtr is agreeable and is aware of response from [facility]
Plan: DC to SNF or back to [facility] Personal care with enhanced services.
[2024-12-22 16:43] LABS: Glucose - Point of Care 114 mg/dl (70-99)
[2024-12-22] MEDS: LOVENOX 40 MG SC (17:33)
[2024-12-22] MEDS: EXELON 6 MG PO (21:29)
[2024-12-22] MEDS: COLACE 100 MG PO (21:30)
[2024-12-22] MEDS: SINEMET CR 50/200 (EXTENDED RELEASE) 1 TABLET PO (21:32)
[2024-12-22] MEDS: LIPITOR 40 MG PO (21:32)
[2024-12-22] MEDS: SENOKOT 17.2 MG PO (21:33)
[2024-12-22] MEDS: MELATONIN 5 MG PO (21:33)
[2024-12-22] MEDS: PEPCID 40 MG PO (21:33)
[2024-12-22] MEDS: SEROQUEL 75 MG PO (21:37)
[2024-12-22] MEDS: PLAQUENIL 400 MG PO (21:39)
[2024-12-22] MEDS: TOPROL XL 12.5 MG PO (21:41)
[2024-12-22 22:07] LABS: Glucose - Point of Care 115 mg/dl (70-99)
[2024-12-22] MEDS: ZOFRAN ODT (ORALLY DISINTEGRATING) 4 MG PO (22:11)
[2024-12-22 23:22] LABS: Glucose - Point of Care 93 mg/dl (70-99)
--- NOTE | 2024-12-22 23:32 | W.PN.UPDATE ---
Update Note
Progress Note Update
BENEFITS MANAGER called
RN states, tech was taking VS while patient had an episode of jerky moments with weird noise accompanied by agitation, had eyes rolled back at that time for few seconds which subsided quickly. No loss of consciousness.
VS 189/ 98 97% RA 20
During evaluation, Patient has eyes closed,baseline confusion, Patient response to voice, name and does follow commands, able to move arms and legs without any problems, noticed some agitation at present which is not new this admission.
likely experiencing Dyskinesia as she has Parkinson disease treated with Carbidopa-Levodopa HS, Nuplazid.
Seizures? no post ictal confusion, fatigue or disorientation noted, no loss of consciousness.
Advised RN to monitor, if happens again, may need neurology consult, further testing EEG
no acute interventions at present.
BP rechecked in AM 109/67 71
--- NOTE | 2024-12-23 04:51 | PTCARENOTE ---
Pt was having VS taken when the PCT note that the pt's eyes rolled to show the whites of their eyes only for a few secs as the pt yelped. PCT called out for this RN who initially saw the pt lethargic but arousable. Pt was then noted to do the same
thing with this RN present. Pt showed no s/s of being postictal. Pt was able to speak and follow commands. Pt was confused to time but that is her baseline. A rrapid was called by staff. MEDICAL MANAGEMENT TRAINER came to bedside to assess pt. No additional orders were
placed. Pt has remained at baseline since. VSS. No s/s of distress assessed. Will continue to monitor.
[2024-12-23] MEDS: D5/0.45%NACL 1000 IV ×2 (05:47→17:02)
[2024-12-23 06:29] LABS: Glucose - Point of Care 100 mg/dl (70-99)
[2024-12-23 06:56] LABS: Glucose - Point of Care 116 mg/dl (70-99)
[2024-12-23 07:00] VITALS: BP 146/81
[2024-12-23 07:25] LABS: Hematocrit 38.6 % (37.0-47.0); Hemoglobin 13.2 g/dL (12.0-16.0); Mean Corp Hgb Conc. 34.2 g/dL (33.0-37.0); Mean Corpuscular Volume 78.3 fL (81.0-99.0); Red Cell Dist. Width 12.9 % (11.5-14.5)
[2024-12-23 07:34] LABS: Blood Urea Nitrogen 12 mg/dl (7-17); Calcium 8.7 mg/dl (8.4-10.2); Carbon Dioxide 26 mmol/L (22-30); Chloride 104 mmol/L (98-107); Estimated Creatinine Clearance 65 ml/min; Glucose 108 mg/dl (70-99); Potassium 3.3 mmol/L (3.5-5.1); Sodium 132 mmol/L (135-145); eGFR > 60.00
[2024-12-23] MEDS: EXELON PO ×3 (08:10→20:14)
[2024-12-23] MEDS: PROTONIX PO ×2 (08:10→12:52)
[2024-12-23] MEDS: ZESTRIL PO ×2 (08:10→12:52)
[2024-12-23] MEDS: SEROQUEL PO ×3 (08:11→21:57)
[2024-12-23] MEDS: ORETIC PO ×2 (08:11→12:51)
[2024-12-23] MEDS: LOW STRENGTH ASPIRIN PO ×2 (08:11→12:51)
[2024-12-23] MEDS: NON-FORMULARY ITEM PO ×4 (08:12→21:52)
[2024-12-23] MEDS: COLACE PO ×3 (08:12→20:13)
[2024-12-23] MEDS: MIRALAX PO (08:13)
[2024-12-23] MEDS: ZOFRAN 4 MG IV (08:26)
[2024-12-23 08:44] LABS: Platelet Count 172 10^3/uL (130-400)
--- NOTE | 2024-12-23 09:30 | PTCARENOTE ---
Pt. vomited during morning med pass, bile and whole capsule pills. Zofran IV given as ordered. Dr. Castro updated on morning rounds. This nurse will try to administer AM medications again later.
[2024-12-23] MEDS: NON-FORMULARY ITEM 2 CAP PO ×2 (10:50→17:02)
[2024-12-23 10:55] VITALS: BP 161/74
[2024-12-23 11:54] LABS: Glucose - Point of Care 102 mg/dl (70-99)
[2024-12-23 12:20] VITALS: BP 133/78
--- NOTE | 2024-12-23 13:13 | W.PN.GI.CBS2 ---
Today's Communication / Plan
-
Will try increasing miralax to see if treating constipation helps with nausea
If not, may consider EGD Wednesday
Also consider MRE to r/o enteritis suggested on CT
Assessment / Plan
-
Summary: 78yo presents with hx SLE, parkinson's, CAD with prior stenting, colon polyps, GERD, HTN, hyperlipidemia, hypothyroidism, myelofibrosis, prior brain surgery, breast reduction with admission 12/15 with abdominal pain with nausea and
vomiting. In review PCP noted prior to admission noted with recent wt loss of 15 lbs since October. Since admission noted with stable CBC, persistent hyponatremia with Na 129-130, K 3.1, initial aimee 1.5 and alk phos 129 with normal
transaminases. She also had [address] with last 12/16 did question enteritis and SB wall thickening otherwise stable. She also admits to change in Parkinson meds with now extended release and per nursing staff was off for several days now
restarted. In reviewing with patient chronic decreased appetite. She also admits to chronic constipation and lower abdominal pain. She was having some nausea and vomiting but not noted per staff last 2 days. Abdominal pain is better with tums and
BM's. She did have large stools 12/18 then did eat better today. She was taking Miralax minimally as needed prior to admission but now placed on Miralax, colace, senna and given enema.
12/13/24 CT AP- No significant acute abnormality. Bowel without evidence of obstruction or adjacent inflammatory changes. Diverticulosis.
12/16/24 CT AP- Apparent wall thickening of SB in RLQ, possibly due to enteritis, no intestinal obstruction or free air.
12/20/24 OBS SERIES- Nonobstructive bowel gas pattern. Mild stool and contrast material in the sigmoid colon and rectum. Colonic diverticulosis.
12/22/24 ESOPHAGRAM- Presbyesophagus. Small hiatal hernia. Unable to do SBFT as pt unable to swallow adequate volume contrast
Impression:
-wt loss with decreased appetite
-vomiting with hiccups
-abdominal pain
-CT with possible enteritis 12/16
-constipation
-hx parkinson's with change to long acting medication
-hyponatremia
-mild bili and alk phos elevation
other med problems:
SLE,CAD with prior stenting, colon polyps, GERD, HTN, hyperlipidemia, hypothyroidism, myelofibrosis, prior brain surgery, breast reduction
Subjective
Subjective
Date of Service: December 23, 2024
Pt had jerking movements last night, possible dystonic symptoms related to Parkinsons. Still c/o nausea with eating. Feels food regurgitating. Unable to complete SBFT
Objective
Data Reviewed
Laboratory Data:
Laboratory Results
12/23/24 06:29
12/23/24 06:29
Laboratory Results
Magnesium 1.7 mg/dl (1.6-2.3) 12/16/24 05:01
Total Bilirubin 0.8 mg/dl (0.2-1.3) 12/19/24 09:14
AST 21 U/L (14-36) 12/19/24 09:14
ALT 12 U/L (0-35) 12/19/24 09:14
Alkaline Phosphatase 102 U/L (38-126) 12/19/24 09:14
Lipase 220 U/L (23-300) 12/15/24 19:10
Vital Signs and I&O:
Vital Signs
Temp Pulse Resp BP Pulse Ox
97.6 F 64 16 133/78 97
12/23/24 10:55 12/23/24 10:55 12/23/24 10:55 12/23/24 12:20 12/23/24 10:55
I&O
12/22/24 12/23/24 12/24/24
06:59 06:59 06:59
Output Total 325 / 325 175 / 175
Balance -325 / -325 -175 / -175
Physical Exam
Physical Exam
GI: Soft, Non Distended and Non Tender
[2024-12-23 13:30] VITALS: BP 126/83; BP 130/75; BP 136/74; PULSE 58; PULSE 61; PULSE 74
[2024-12-23 14:37] VITALS: BP 136/73
--- NOTE | 2024-12-23 15:11 | W.PN.HOSP.TC ---
Today's Communication/Plan
-
Assessment / Plan
Assessment / Plan
A/P: Patient is an 78y F with PMH significant for Parkinson's disease, ASCVD and hypertension who presents to ED complaining of about four weeks of abdominal discomfort and N/V.
NAD
Scleral Anicteric
MMM
No JVD
CTABL
RRR, S1/S2
Soft, NT, ND, BS+
Warm, Dry
AAOx3
Calm
N/V with abdominal pain and weight loss. Symptomatology ongoing x [address] abdomen pelvis reviewed demonstrating some right lower quadrant small bowel thickening could be enteritis
Strange for infectious enteritis to be ongoing for more than 2 weeks.
Will have GI eval
- Ordered a obstruction series that demonstrated nonobstructive bowel gas pattern. Mild stool contrast material in sigmoid colon/rectum. Colonic diverticulosis
-May need additional small bowel imaging. Appreciate GI input
-Esophogram demonstrating presbyesophagus, GI consulted
-GI believes that this could also be related to a hyponatremic episode however she is chronically hyponatremic ranging between 129 and 132. I have a very low clinical suspicion that hyponatremia to this extent causes symptoms
Continue current diet
If eating less start IV fluids dextrose containing
GI may consider MR enterography however has a DBS
Await/appreciate GI input
Hypoglycemia
Hypoglycemic protocol
Will begin dextrose containing fluids
Parkinson's Disease with history of agitation so was put on Nuplazid s/p deep brain stimulator
- Patient states neurologist at [facility] on the current regimen of medicine apparently is keeping the symptoms under control mostly. Will continue with her regimen.
Acute agitation-unclear if this is Parkinson disease related cognitive issue or missing her Nuplazid. Apart from GI symptom as above no obvious other infectious concern. Mild natremia noted but I doubt that has any relation to agitation. She had
prior episodes of agitation during hospitalization. Suspect sundowning and missing medication.
Daughter brought Nuplazid. Continue with other Parkinson's medicine. If continued agitation consult neurology.
ASCVD
- Continue ASA daily uninterrupted.
- Continue statin
Hypothyroidism
- Continue T4 supplementation.
Lupus
- No acute rashes / skin changes / joint pain / etc.
DVT Prophylaxis: Lovenox
Code Status: DNR
Anticipated Discharge: > 48 hours
Subjective/Interval History
-
Date of Service: December 23, 2024
Seen and examined. No new complaints. No acute overnight events.
Objective Data
-
Labs:
Laboratory Results
12/23/24
06:29
WBC 5.9
Hgb 13.2
Hct 38.6
Plt Count 172 D
Sodium 132 L
Potassium 3.3 L
Chloride 104
Carbon Dioxide 26
BUN 12
Creatinine 0.6
Glucose 108 H
Calcium 8.7
Vital Signs:
Vital Signs
Temp Pulse Resp BP Pulse Ox
97.6 F 65 16 136/73 98
12/23/24 14:37 12/23/24 14:37 12/23/24 14:37 12/23/24 14:37 12/23/24 14:37
I&O
12/22/24 12/23/24 12/24/24
06:59 06:59 06:59
Output Total 325 / 325 175 / 175
Balance -325 / -325 -175 / -175
[2024-12-23 16:54] LABS: Glucose - Point of Care 100 mg/dl (70-99)
[2024-12-23] MEDS: LOVENOX 40 MG SC (17:03)
[2024-12-23] MEDS: PLAQUENIL PO (20:14)
[2024-12-23] MEDS: MIRALAX 17 GRAMS PO (20:15)
[2024-12-23 21:06] LABS: Glucose - Point of Care 111 mg/dl (70-99)
[2024-12-23] MEDS: PEPCID PO (21:44)
[2024-12-23] MEDS: LIPITOR PO (21:44)
[2024-12-23] MEDS: SENOKOT PO (21:45)
[2024-12-23] MEDS: SINEMET CR 50/200 (EXTENDED RELEASE) PO ×2 (21:48→21:57)
[2024-12-23] MEDS: MELATONIN PO (21:57)
[2024-12-23] MEDS: TOPROL XL PO (21:57)
[2024-12-23 23:47] VITALS: BP 156/80; BP 157/83; BP 162/85; PULSE 69; PULSE 71; PULSE 81
[2024-12-24] MEDS: D5/0.45%NACL 1000 IV ×2 (03:46→15:57)
[2024-12-24 04:03] VITALS: BP 139/87
[2024-12-24 07:00] VITALS: BP 155/94
[2024-12-24 07:20] LABS: Hematocrit 38.8 % (37.0-47.0); Hemoglobin 13.0 g/dL (12.0-16.0); Mean Corp Hgb Conc. 33.5 g/dL (33.0-37.0); Mean Corpuscular Volume 77.4 fL (81.0-99.0); Platelet Count 146 10^3/uL (130-400); Red Cell Dist. Width 12.9 % (11.5-14.5)
[2024-12-24 07:22] LABS: Blood Urea Nitrogen 12 mg/dl (7-17); Calcium 8.4 mg/dl (8.4-10.2); Carbon Dioxide 25 mmol/L (22-30); Chloride 102 mmol/L (98-107); Estimated Creatinine Clearance 65 ml/min; Glucose 88 mg/dl (70-99); Potassium 3.3 mmol/L (3.5-5.1); Sodium 129 mmol/L (135-145); eGFR > 60.00
[2024-12-24 07:48] LABS: Glucose - Point of Care 97 mg/dl (70-99)
[2024-12-24] MEDS: ZOFRAN 4 MG IV (09:00)
[2024-12-24] MEDS: SEROQUEL PO ×3 (09:12→20:12)
[2024-12-24] MEDS: NON-FORMULARY ITEM PO ×4 (09:12→22:24)
--- NOTE | 2024-12-24 09:14 | W.PN.GI.CBS2 ---
Today's Communication / Plan
-
Continue miralax BID as long as no diarrhea. Treating constipation may help nausea
Will plan EGD tomorrow to evaluate n/v
With her deep brain stimulator, she may not be able to get MRE to evaluate possible enteritis on her last CT
Maybe worth getting Neuro eval for her nausea, given her possible seizure activity and rapid response 12/22 and Parkinson's
Assessment / Plan
-
Summary: 78yo presents with hx SLE, parkinson's, CAD with prior stenting, colon polyps, GERD, HTN, hyperlipidemia, hypothyroidism, myelofibrosis, prior brain surgery, breast reduction with admission 12/15 with abdominal pain with nausea and
vomiting. In review PCP noted prior to admission noted with recent wt loss of 15 lbs since October. Since admission noted with stable CBC, persistent hyponatremia with Na 129-130, K 3.1, initial aimee 1.5 and alk phos 129 with normal
transaminases. She also had [address] with last 12/16 did question enteritis and SB wall thickening otherwise stable. She also admits to change in Parkinson meds with now extended release and per nursing staff was off for several days now
restarted. In reviewing with patient chronic decreased appetite. She also admits to chronic constipation and lower abdominal pain. She was having some nausea and vomiting but not noted per staff last 2 days. Abdominal pain is better with tums and
BM's. She did have large stools 12/18 then did eat better today. She was taking Miralax minimally as needed prior to admission but now placed on Miralax, colace, senna and given enema.
12/13/24 CT AP- No significant acute abnormality. Bowel without evidence of obstruction or adjacent inflammatory changes. Diverticulosis.
12/16/24 CT AP- Apparent wall thickening of SB in RLQ, possibly due to enteritis, no intestinal obstruction or free air.
12/20/24 OBS SERIES- Nonobstructive bowel gas pattern. Mild stool and contrast material in the sigmoid colon and rectum. Colonic diverticulosis.
12/22/24 ESOPHAGRAM- Presbyesophagus. Small hiatal hernia. Unable to do SBFT as pt unable to swallow adequate volume contrast
Impression:
-wt loss with decreased appetite
-vomiting with hiccups
-abdominal pain
-CT with possible enteritis 12/16
-constipation
-hx parkinson's with change to long acting medication
-hyponatremia
-mild bili and alk phos elevation
-DBS
other med problems:
SLE,CAD with prior stenting, colon polyps, GERD, HTN, hyperlipidemia, hypothyroidism, myelofibrosis, prior brain surgery, breast reduction
Subjective
Subjective
Date of Service: December 24, 2024
BMs looser with extra dose miralax. Still has nausea. Sleepy this am and somewhat difficult to arouse but able to answer questions appropriately
Objective
Data Reviewed
Laboratory Data:
Laboratory Results
12/24/24 05:46
12/24/24 05:46
Laboratory Results
Magnesium 1.7 mg/dl (1.6-2.3) 12/16/24 05:01
Total Bilirubin 0.8 mg/dl (0.2-1.3) 12/19/24 09:14
AST 21 U/L (14-36) 12/19/24 09:14
ALT 12 U/L (0-35) 12/19/24 09:14
Alkaline Phosphatase 102 U/L (38-126) 12/19/24 09:14
Lipase 220 U/L (23-300) 12/15/24 19:10
Vital Signs and I&O:
Vital Signs
Temp Pulse Resp BP Pulse Ox
98.3 F 77 14 155/94 98
12/24/24 07:00 12/24/24 07:00 12/24/24 07:00 12/24/24 07:00 12/24/24 07:00
I&O
12/23/24 12/24/24 12/25/24
06:59 06:59 06:59
Intake Total 1440 / 1440
Output Total 175 / 175
Balance -175 / -175 1439
Physical Exam
Physical Exam
GI: Soft, Non Distended and Non Tender
[2024-12-24] MEDS: COLACE PO ×2 (09:16→20:12)
[2024-12-24] MEDS: LOW STRENGTH ASPIRIN PO (09:16)
[2024-12-24] MEDS: EXELON PO ×2 (09:16→20:12)
[2024-12-24] MEDS: MIRALAX PO ×2 (09:16→20:12)
[2024-12-24] MEDS: ORETIC PO (09:16)
[2024-12-24] MEDS: ZESTRIL PO (09:17)
[2024-12-24] MEDS: PROTONIX PO (09:17)
[2024-12-24] MEDS: KCL 270 MEQ IV (09:21)
--- NOTE | 2024-12-24 11:59 | W.PN.HOSP.TC ---
Today's Communication/Plan
-
Assessment / Plan
Assessment / Plan
A/P: Patient is an 78y F with PMH significant for Parkinson's disease, ASCVD and hypertension who presents to ED complaining of about four weeks of abdominal discomfort and N/V.
NAD
Scleral Anicteric
MMM
No JVD
CTABL
RRR, S1/S2
Soft, NT, ND, BS+
Warm, Dry
AAOx3
Calm
N/V with abdominal pain and weight loss. Symptomatology ongoing x [address] abdomen pelvis reviewed demonstrating some right lower quadrant small bowel thickening could be enteritis
Strange for infectious enteritis to be ongoing for more than 2 weeks.
Will have GI eval
- Ordered a obstruction series that demonstrated nonobstructive bowel gas pattern. Mild stool contrast material in sigmoid colon/rectum. Colonic diverticulosis
-May need additional small bowel imaging. Appreciate GI input
-Esophogram demonstrating presbyesophagus, GI consulted
-GI believes that this could also be related to a hyponatremic episode however she is chronically hyponatremic ranging between 129 and 132. I have a very low clinical suspicion that hyponatremia to this extent causes symptoms
Continue current diet
If eating less start IV fluids dextrose containing
GI may consider MR enterography however has a DBS
Await/appreciate GI input
- Plan for EGD tomorrow
-Will consult Neuro per GI recs
Hypoglycemia
Hypoglycemic protocol
Will begin dextrose containing fluids
Parkinson's Disease with history of agitation so was put on Nuplazid s/p deep brain stimulator
- Patient states neurologist at [facility] on the current regimen of medicine apparently is keeping the symptoms under control mostly. Will continue with her regimen.
Acute agitation-unclear if this is Parkinson disease related cognitive issue or missing her Nuplazid. Apart from GI symptom as above no obvious other infectious concern. Mild natremia noted but I doubt that has any relation to agitation. She had
prior episodes of agitation during hospitalization. Suspect sundowning and missing medication.
Daughter brought Nuplazid. Continue with other Parkinson's medicine. If continued agitation consult neurology.
ASCVD
- Continue ASA daily uninterrupted.
- Continue statin
Hypothyroidism
- Continue T4 supplementation.
Lupus
- No acute rashes / skin changes / joint pain / etc.
DVT Prophylaxis: Lovenox
Code Status: DNR
Anticipated Discharge: 24 - 48 hours
Subjective/Interval History
-
Date of Service: December 24, 2024
Seen and examined. No new complaints. No acute overnight event
Objective Data
-
Labs:
Laboratory Results
12/24/24
05:46
WBC 5.7
Hgb 13.0
Hct 38.8
Plt Count 146
Sodium 129 L
Potassium 3.3 L
Chloride 102
Carbon Dioxide 25
BUN 12
Creatinine 0.6
Glucose 88
Calcium 8.4
Vital Signs:
Vital Signs
Temp Pulse Resp BP Pulse Ox
98.3 F 77 14 155/94 98
12/24/24 07:00 12/24/24 07:00 12/24/24 07:00 12/24/24 07:00 12/24/24 08:45
I&O
12/23/24 12/24/24 12/25/24
06:59 06:59 06:59
Intake Total 1440 / 1440
Output Total 175 / 175
Balance -175 / -175 1440 / 1440
[2024-12-24 12:14] LABS: Glucose - Point of Care 95 mg/dl (70-99)
--- NOTE | 2024-12-24 13:27 | CON.NEURO ---
Consultation
Order
Date of Consultation: 12/24/24
Requesting Provider: Cuco Castro MD
Reason for Consult: Suspected seizure
Neurology Consultation Note.
HPI: This is an 78-year-old woman who presented to [facility] on 12/15/2024 with abdominal pain, nausea and emesis.
Neurology consultation was requested for evaluation and management of suspected seizure.
No information regarding seizures available in EMR. Ms. Alexandra endorses ongoing nausea recent 15 pound weight loss. She is unable to provide a history of her dopaminergic medication dosage or recent changes
PDMP: No prescribed medications
Labs: Sodium�129, normal TSH
PMH: IPD, SLE, chronic hyponatremia, hypothyroidism, ASCVD, HTN, DLP,
PSH: DBS, bilateral cataract surgery
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
FH:not contributory
All:PNC
ROS: General: Positive for 15-pound weight loss.
Gastrointestinal: Positive for nausea.
Neurological: Positive for visual hallucinations occurring for years, positive for stiffness and difficulty walking.
General: In mild distress due to nausea
Cardio: Regular rate and rhythm without murmur. Extremities are without cyanosis or edema.
Neuro:
Mental Status: Alert, oriented to person, month, not to date. Impaired attention. Follows complex requests across the midline. Comprehension, naming, and repetition intact.
Cranial Nerves: Pupils are equally round, surgical. EOMs full. Visual brenner full to confrontation. No ptosis. No nystagmus. Face symmetric. Impaired hearing AU. The palate elevated well. SCMs and traps 5/5. Tongue midline. No dysarthria.
Motor: Mildly creased motor tone in the left arm and leg. No pronator or arm drift. Strength 5/5 throughout. No clonus.
Reflexes: 1+, negative grasp.
Sensory: limited due to poor attention
Coordination: No tremors myoclonic movements
Gait: deferred
Assessment and Plan:
I. IPS, s/p DBS
II. Mild encephalopathy
III. Chronic hyponatremia
- Avoid dependent aortic blockers
- Administer Sinemet and Crexont with meals
- Please obtain medical records from patient's neurology
- May consider EEG if concern for seizure persists.
I personally reviewed all radiology and labs along with past medical records pertinent to current medical problems. Total time spent in patient care is 60 minutes.
Thank you for allowing us to participate in the care of this patient. We will continue to follow. Please do not hesitate to contact us with any questions or concerns.
Subjective/Objective
Subjective Data
Date of Service: December 24, 2024
Objective Data
Vital Signs
Temp Pulse Resp BP Pulse Ox
36.8 C 77 14 155/94 98
12/24/24 07:00 12/24/24 07:00 12/24/24 07:00 12/24/24 07:00 12/24/24 08:45
Lab Results
12/24/24 05:46
12/24/24 05:46
Sodium 129 mmol/L (135-145) L 12/24/24 05:46
Potassium 3.3 mmol/L (3.5-5.1) L 12/24/24 05:46
BUN 12 mg/dl (7-17) 12/24/24 05:46
Glucose 88 mg/dl (70-99) 12/24/24 05:46
Calcium 8.4 mg/dl (8.4-10.2) 12/24/24 05:46
Patient Allergies
penicillin V Allergy (Verified 11/05/22 17:27)
Rash
Medications
-
Active Medications
Generic Name Dose Route Start Last Admin
Trade Name Freq PRN Reason Stop Dose Admin
Acetaminophen 650 mg 12/16/24 04:44
Acetaminophen 325 Mg Tablet PO 11/15/25 04:43
Q4HPRN PRN
Mild Pain / Temp > 101
Aspirin 81 mg 12/16/24 08:00 12/24/24 09:16
Aspirin 81 Mg Chewable Tablet PO 01/13/25 07:59 Not Given
DAILY MARIANA
Atorvastatin Calcium 40 mg 12/16/24 22:00 12/23/24 21:44
Atorvastatin (Lipitor) 40 Mg Tablet PO 01/13/25 21:59 Not Given
HS MARIANA
Carbidopa/Levodopa 1 tablet 12/16/24 14:09 12/22/24 11:40
Carbidopa (25 Mg)/Levodopa (100 Mg) Regular Release Tablet PO 01/13/25 14:08 1 tablet
DAILYPRN PRN Administration
before exercise
Carbidopa/Levodopa 1 tablet 12/16/24 22:00 12/23/24 21:57
Carbidopa (50 Mg)/Levodopa (200 Mg) Extended Release Tablet PO 01/13/25 21:59 Not Given
HS MARIANA
Dextrose 12.5 grams 12/21/24 01:33
Dextrose 50% (0.5 Grams/Ml) 50 Ml Syringe IV 01/18/25 01:32
[id number] PRN
hypoglycemia
Protocol
Docusate Sodium 100 mg 12/17/24 20:00 12/24/24 09:16
Docusate Sodium 100 Mg Capsule PO 01/14/25 19:59 Not Given
BID MARIANA
Enoxaparin Sodium 40 mg 12/16/24 18:00 12/23/24 17:03
Enoxaparin Sodium 40 Mg/0.4 Ml Syringe SC 01/13/25 17:59 40 mg
On Hold: 12/24/24 10:42 QPM MARIANA Administration
Resume: 12/25/24 20:00
Famotidine 40 mg 12/16/24 22:00 12/23/24 21:44
Famotidine 20 Mg Tablet PO 01/13/25 21:59 Not Given
HS MARIANA
Glucagon 1 mg 12/21/24 01:33
Glucagon 1 Mg Vial IM 01/18/25 01:32
PRN PRN
hypoglycemia
Protocol
Hydrochlorothiazide 25 mg 12/17/24 08:00 12/24/24 09:16
Hydrochlorothiazide 25 Mg Tablet PO 01/14/25 07:59 Not Given
DAILY MARIANA
Hydroxychloroquine Sulfate 200 mg 12/16/24 20:00 12/23/24 20:14
Hydroxychloroquine 200 Mg Tablet PO 01/13/25 19:59 Not Given
SUTUTHSA@1999 MARIANA
Hydroxychloroquine Sulfate 400 mg 12/18/24 20:00 12/22/24 21:39
Hydroxychloroquine 200 Mg Tablet PO 01/15/25 19:59 400 mg
MOWEFR@1999 [facility] Administration
Insulin Aspart 0 units 12/22/24 11:21 12/24/24 12:17
Insulin Aspart Low Resistance 300 Units/3 Ml Pen.Injctr SC 01/19/25 05:59 Not Given
AC MARIANA
Protocol
Levothyroxine Sodium 137 mcg 12/18/24 06:00 12/22/24 03:56
Levothyroxine 137 Mcg Tablet PO 01/15/25 05:59 Not Given
MoTuWeThFr@0600 MARIANA
Lisinopril 40 mg 12/16/24 15:00 12/24/24 09:17
Lisinopril 20 Mg Tablet PO 01/13/25 14:59 Not Given
DAILY MARIANA
Loperamide HCl 2 mg 12/16/24 14:51
Loperamide 2 Mg Capsule PO 01/13/25 14:50
Q4H PRN
diarrhea
Melatonin 5 mg 12/16/24 22:00 12/23/24 21:57
Melatonin 5 Mg Tablet PO 01/13/25 21:59 Not Given
HS MARIANA
Metoprolol Succinate 12.5 mg 12/16/24 22:00 12/23/24 21:57
Metoprolol 12.5 Mg Extended Release Dose (1/2 Of 25 Mg Xl Tablet) PO 01/13/25 21:59 Not Given
HS MARIANA
Carbidopa-Levodopa [ 0 cap 12/16/24 16:00 12/24/24 09:18
Crexont] 70-280 Mg PO 01/13/25 15:59 Not Given
Er Capsule 2 Caps Po TID MARIANA
Tid
Pimavanserin [ 34 mg 12/17/24 15:00 12/24/24 09:17
Nuplazid] 34 Mg PO 01/14/25 14:59 Not Given
Capsule Po Daily DAILY MARIANA
Ondansetron HCl 4 mg 12/16/24 04:44 12/24/24 09:00
Ondansetron 4 Mg/2 Ml Vial IV 01/13/25 04:43 4 mg
Q6HPRN PRN Administration
nausea and vomiting
Ondansetron HCl 4 mg 12/16/24 14:09 12/22/24 22:11
Ondansetron 4 Mg (Orally-Disintegrating) Tablet PO 01/13/25 14:08 4 mg
Q8HPRN PRN Administration
nausea/vomiting
Pantoprazole Sodium 40 mg 12/16/24 08:00 12/24/24 09:17
Pantoprazole 40 Mg Delayed Release Tablet PO 01/13/25 07:59 Not Given
DAILY MARIANA
Polyethylene Glycol 17 grams 12/23/24 20:00 12/24/24 09:16
Polyethylene Glycol Powder 17 Grams Packet PO 01/20/25 19:59 Not Given
BID MARIANA
Quetiapine Fumarate 75 mg 12/16/24 22:00 12/23/24 21:57
Quetiapine 25 Mg Tablet PO 01/13/25 21:59 Not Given
HS MARIANA
Quetiapine Fumarate 25 mg 12/16/24 15:00 12/24/24 09:18
Quetiapine 25 Mg Tablet PO 01/13/25 14:59 Not Given
DAILY MARIANA
Rivastigmine Tartrate 6 mg 12/16/24 20:00 12/24/24 09:16
Rivastigmine (Exelon) 3 Mg Capsule PO 01/13/25 19:59 Not Given
BID MARIANA
Sennosides 17.2 mg 12/19/24 22:00 12/23/24 21:45
Sennosides (Senokot) 8.6 Mg Tablet PO 01/16/25 21:59 Not Given
HS MARIANA
Sodium Chloride 0 flush 12/16/24 05:00
Sodium Chloride 0.9% (Flush) Syringe IV 01/13/25 04:59
PER PROTOCOL MARIANA
Home Medications
�Medication �Instructions �Recorded
atorvastatin 40 mg tablet 40 mg PO HS High cholesterol 11/23/21
carbidopa ER 50 mg-levodopa 200 mg 1 tab PO HS Parkinson Disease 12/11/21
tablet,extended release
quetiapine 25 mg tablet 25 mg PO DAILY Psychosis in 12/11/21
Parkinson Disease
rivastigmine tartrate 3 mg capsule 6 mg PO BID Parkinson Disease 12/11/21
aspirin 81 mg chewable tablet 81 mg PO DAILY #0 tabs 12/14/21
lisinopril 40 mg tablet 40 mg PO DAILY 11/05/22
acetaminophen 325 mg tablet 650 mg PO Q4H PRN mild pain/fever 12/16/24
carbidopa 25 mg-levodopa 100 mg 1 tab PO DAILYPRN PRN before 12/16/24
tablet exercise
carbidopa 70 mg-levodopa ER 280 mg 2 cap PO TID 12/16/24
capsule,immed and extended release
(Crexont)
famotidine 40 mg tablet 40 mg PO HS 12/16/24
hydrochlorothiazide 25 mg tablet 25 mg PO DAILY 12/16/24
hydroxychloroquine 200 mg tablet 200 mg PO SUTUTHSA@199912/16/24
hydroxychloroquine 200 mg tablet 400 mg PO MOWEFR@199912/16/24
levothyroxine 137 mcg tablet 137 mcg PO MOTUWETHFR 12/16/24
loperamide 2 mg tablet 2 mg PO Q4H PRN diarrhea 12/16/24
melatonin 2.5 mg chewable tablet 5 mg PO HS 12/16/24
metoprolol succinate 25 mg 12.5 mg PO HS 12/16/24
tablet,extended release 24 hr
ondansetron 4 mg disintegrating 4 mg PO Q8HPRN PRN nausea/vomiting 12/16/24
tablet
pantoprazole 40 mg tablet,delayed 40 mg PO DAILY 12/16/24
release
pimavanserin 34 mg capsule 34 mg PO DAILY 12/16/24
(Nuplazid)
quetiapine 25 mg tablet 75 mg PO HS 12/16/24
Vital Signs and Labs
-
Vital Signs and Labs:
Vital Signs
Temp Pulse Resp BP Pulse Ox
36.8 C 77 14 155/94 98
12/24/24 07:00 12/24/24 07:00 12/24/24 07:00 12/24/24 07:00 12/24/24 08:45
Lab Results
12/24/24 05:46
12/24/24 05:46
Sodium 129 mmol/L (135-145) L 12/24/24 05:46
Potassium 3.3 mmol/L (3.5-5.1) L 12/24/24 05:46
BUN 12 mg/dl (7-17) 12/24/24 05:46
Glucose 88 mg/dl (70-99) 12/24/24 05:46
Calcium 8.4 mg/dl (8.4-10.2) 12/24/24 05:46
Medications
-
Medications:
Generic Name Dose Route Start Last Admin
Trade Name Freq PRN Reason Stop Dose Admin
Acetaminophen 650 mg 12/16/24 04:44
Acetaminophen 325 Mg Tablet PO 01/13/25 04:43
Q4HPRN PRN
Mild Pain / Temp > 101
Aspirin 81 mg 12/16/24 08:00 12/24/24 09:16
Aspirin 81 Mg Chewable Tablet PO 01/13/25 07:59 Not Given
DAILY MARIANA
Atorvastatin Calcium 40 mg 12/16/24 22:00 12/23/24 21:44
Atorvastatin (Lipitor) 40 Mg Tablet PO 01/13/25 21:59 Not Given
HS MARIANA
Carbidopa/Levodopa 1 tablet 12/16/24 14:09 12/22/24 11:40
Carbidopa (25 Mg)/Levodopa (100 Mg) Regular Release Tablet PO 01/13/25 14:08 1 tablet
DAILYPRN PRN Administration
before exercise
Carbidopa/Levodopa 1 tablet 12/16/24 22:00 12/23/24 21:57
Carbidopa (50 Mg)/Levodopa (200 Mg) Extended Release Tablet PO 01/13/25 21:59 Not Given
HS MARIANA
Dextrose 12.5 grams 12/21/24 01:33
Dextrose 50% (0.5 Grams/Ml) 50 Ml Syringe IV 01/18/25 01:32
[id number] PRN
hypoglycemia
Protocol
Docusate Sodium 100 mg 12/17/24 20:00 12/24/24 09:16
Docusate Sodium 100 Mg Capsule PO 01/14/25 19:59 Not Given
BID MARIANA
Enoxaparin Sodium 40 mg 12/16/24 18:00 12/23/24 17:03
Enoxaparin Sodium 40 Mg/0.4 Ml Syringe SC 01/13/25 17:59 40 mg
On Hold: 12/24/24 10:42 QPM MARIANA Administration
Resume: 12/25/24 20:00
Famotidine 40 mg 12/16/24 22:00 12/23/24 21:44
Famotidine 20 Mg Tablet PO 01/13/25 21:59 Not Given
HS MARIANA
Glucagon 1 mg 12/21/24 01:33
Glucagon 1 Mg Vial IM 01/18/25 01:32
PRN PRN
hypoglycemia
Protocol
Hydrochlorothiazide 25 mg 12/17/24 08:00 12/24/24 09:16
Hydrochlorothiazide 25 Mg Tablet PO 01/14/25 07:59 Not Given
DAILY MARIANA
Hydroxychloroquine Sulfate 200 mg 12/16/24 20:00 12/23/24 20:14
Hydroxychloroquine 200 Mg Tablet PO 01/13/25 19:59 Not Given
SUTUTHSA@1999 MARIANA
Hydroxychloroquine Sulfate 400 mg 12/18/24 20:00 12/22/24 21:39
Hydroxychloroquine 200 Mg Tablet PO 01/15/25 19:59 400 mg
MOWEFR@1999 MARIANA Administration
Dextrose/Sodium Chloride 1,000 mls @ 80 mls/hr 12/24/24 15:00 12/24/24 15:57
D5/0.45%Nacl IV 1,000 mls
.[id number] MARIANA Administration
Insulin Aspart 0 units 12/22/24 11:21 12/24/24 12:17
Insulin Aspart Low Resistance 300 Units/3 Ml Pen.Injctr SC 01/19/25 05:59 Not Given
AC MARIANA
Protocol
Levothyroxine Sodium 137 mcg 12/18/24 06:00 12/22/24 03:56
Levothyroxine 137 Mcg Tablet PO 01/15/25 05:59 Not Given
MoTuWeThFr@06 MARIANA
Lisinopril 40 mg 12/16/24 15:00 12/24/24 09:17
Lisinopril 20 Mg Tablet PO 01/13/25 14:59 Not Given
DAILY MARIANA
Loperamide HCl 2 mg 12/16/24 14:51
Loperamide 2 Mg Capsule PO 01/13/25 14:50
Q4H PRN
diarrhea
Melatonin 5 mg 12/16/24 22:00 12/23/24 21:57
Melatonin 5 Mg Tablet PO 01/13/25 21:59 Not Given
HS MARIANA
Metoprolol Succinate 12.5 mg 12/16/24 22:00 12/23/24 21:57
Metoprolol 12.5 Mg Extended Release Dose (1/2 Of 25 Mg Xl Tablet) PO 01/13/25 21:59 Not Given
HS MARIANA
Carbidopa-Levodopa [ 0 cap 12/16/24 16:00 12/24/24 15:59
Crexont] 70-280 Mg PO 01/13/25 15:59 2 cap
Er Capsule 2 Caps Po TID MARIANA Administration
Tid
Pimavanserin [ 34 mg 12/17/24 15:00 12/24/24 09:17
Nuplazid] 34 Mg PO 01/14/25 14:59 Not Given
Capsule Po Daily DAILY MARIANA
Ondansetron HCl 4 mg 12/16/24 04:44 12/24/24 09:00
Ondansetron 4 Mg/2 Ml Vial IV 01/13/25 04:43 4 mg
Q6HPRN PRN Administration
nausea and vomiting
Ondansetron HCl 4 mg 12/16/24 14:09 12/22/24 22:11
Ondansetron 4 Mg (Orally-Disintegrating) Tablet PO 01/13/25 14:08 4 mg
Q8HPRN PRN Administration
nausea/vomiting
Pantoprazole Sodium 40 mg 12/16/24 08:00 12/24/24 09:17
Pantoprazole 40 Mg Delayed Release Tablet PO 01/13/25 07:59 Not Given
DAILY MARIANA
Polyethylene Glycol 17 grams 12/23/24 20:00 12/24/24 09:16
Polyethylene Glycol Powder 17 Grams Packet PO 01/20/25 19:59 Not Given
BID MARIANA
Quetiapine Fumarate 75 mg 12/16/24 22:00 12/23/24 21:57
Quetiapine 25 Mg Tablet PO 01/13/25 21:59 Not Given
HS MARIANA
Quetiapine Fumarate 25 mg 12/16/24 15:00 12/24/24 09:18
Quetiapine 25 Mg Tablet PO 01/13/25 14:59 Not Given
DAILY MARIANA
Rivastigmine Tartrate 6 mg 12/16/24 20:00 12/24/24 09:16
Rivastigmine (Exelon) 3 Mg Capsule PO 01/13/25 19:59 Not Given
BID MARIANA
Sennosides 17.2 mg 12/19/24 22:00 12/23/24 21:45
Sennosides (Senokot) 8.6 Mg Tablet PO 01/16/25 21:59 Not Given
HS MARIANA
Sodium Chloride 0 flush 12/16/24 05:00
Sodium Chloride 0.9% (Flush) Syringe IV 01/13/25 04:59
PER PROTOCOL MARIANA
Home Medications
-
Home Medications
atorvastatin 40 mg tablet 40 mg PO HS High cholesterol 11/23/21
carbidopa ER 50 mg-levodopa 200 mg tablet,extended release 1 tab PO HS Parkinson Disease 12/11/21
quetiapine 25 mg tablet 25 mg PO DAILY Psychosis in Parkinson Disease 12/11/21
rivastigmine tartrate 3 mg capsule 6 mg PO BID Parkinson Disease 12/11/21
aspirin 81 mg chewable tablet 81 mg PO DAILY #0 tabs 12/14/21
lisinopril 40 mg tablet 40 mg PO DAILY 11/05/22
acetaminophen 325 mg tablet 650 mg PO Q4H PRN mild pain/fever 12/16/24
carbidopa 25 mg-levodopa 100 mg tablet 1 tab PO DAILYPRN PRN before exercise 12/16/24
carbidopa 70 mg-levodopa ER 280 mg capsule,immed and extended release (Crexont) 2 cap PO TID 12/16/24
famotidine 40 mg tablet 40 mg PO HS 12/16/24
hydrochlorothiazide 25 mg tablet 25 mg PO DAILY 12/16/24
hydroxychloroquine 200 mg tablet 200 mg PO SUTUTHSA@2000 12/16/24
hydroxychloroquine 200 mg tablet 400 mg PO MOWEFR@199912/16/24
levothyroxine 137 mcg tablet 137 mcg PO MOTUWETHFR 12/16/24
loperamide 2 mg tablet 2 mg PO Q4H PRN diarrhea 12/16/24
melatonin 2.5 mg chewable tablet 5 mg PO HS 12/16/24
metoprolol succinate 25 mg tablet,extended release 24 hr 12.5 mg PO HS 12/16/24
ondansetron 4 mg disintegrating tablet 4 mg PO Q8HPRN PRN nausea/vomiting 12/16/24
pantoprazole 40 mg tablet,delayed release 40 mg PO DAILY 12/16/24
pimavanserin 34 mg capsule (Nuplazid) 34 mg PO DAILY 12/16/24
quetiapine 25 mg tablet 75 mg PO HS 12/16/24
[2024-12-24 15:00] VITALS: BP 162/83
[2024-12-24] MEDS: NON-FORMULARY ITEM 2 CAP PO (15:59)
--- NOTE | 2024-12-24 16:06 | PTCARENOTE ---
Pt. vomited bile immediately after taking 1600 scheduled carbidopa-levodopa. Dr. Castro made aware.
[2024-12-24 17:09] LABS: Glucose - Point of Care 86 mg/dl (70-99)
[2024-12-24] MEDS: PLAQUENIL PO (20:12)
[2024-12-24] MEDS: MELATONIN PO (20:12)
[2024-12-24] MEDS: SENOKOT PO (20:12)
[2024-12-24] MEDS: PEPCID PO (20:12)
[2024-12-24] MEDS: LIPITOR PO (20:12)
[2024-12-24] MEDS: TOPROL XL PO (20:13)
[2024-12-24 21:17] LABS: Glucose - Point of Care 88 mg/dl (70-99)
[2024-12-24] MEDS: SINEMET CR 50/200 (EXTENDED RELEASE) PO (22:24)
[2024-12-24 23:42] VITALS: BP 150/78; BP 154/70; BP 155/75; PULSE 61; PULSE 67; PULSE 75
[2024-12-25] MEDS: D5/0.45%NACL 1000 IV ×2 (03:28→15:09)
[2024-12-25] MEDS: SYNTHROID PO (04:46)
[2024-12-25 05:37] LABS: Glucose - Point of Care 76 mg/dl (70-99)
[2024-12-25] MEDS: EXELON PO ×3 (08:21→20:28)
[2024-12-25] MEDS: COLACE PO ×3 (08:21→20:27)
[2024-12-25] MEDS: ORETIC PO (08:21)
[2024-12-25] MEDS: NON-FORMULARY ITEM PO ×3 (08:21→21:28)
[2024-12-25] MEDS: MIRALAX PO (08:21)
[2024-12-25] MEDS: LOW STRENGTH ASPIRIN PO (08:21)
[2024-12-25] MEDS: SEROQUEL PO (08:22)
[2024-12-25] MEDS: PROTONIX PO (08:22)
[2024-12-25] MEDS: ZESTRIL PO (08:22)
[2024-12-25 08:23] LABS: Hematocrit 37.9 % (37.0-47.0); Hemoglobin 12.7 g/dL (12.0-16.0); Mean Corp Hgb Conc. 33.5 g/dL (33.0-37.0); Mean Corpuscular Volume 77.5 fL (81.0-99.0); Platelet Count 144 10^3/uL (130-400); Red Cell Dist. Width 12.8 % (11.5-14.5)
[2024-12-25 08:25] VITALS: BP 167/85
--- NOTE | 2024-12-25 08:33 | W.PN.UPDATE ---
Update Note
Progress Note Update
EGD done
Normal esophagus- bx'd r/o EoE
Mild patchy gastric erythema- bx'd r/o HPylori
Small gastric polyps- bx'd
Normal SB- bx'd r/o celiac
REC:
Resume diet
Await path
No source of n/v identified
Consider Neuro eval for nausea with hx Parkinson's, rapid response for questionable seizure vs dystonic symptoms
[2024-12-25 08:41] LABS: Glucose - Point of Care 82 mg/dl (70-99)
[2024-12-25 08:44] LABS: Blood Urea Nitrogen 8 mg/dl (7-17); Calcium 8.3 mg/dl (8.4-10.2); Carbon Dioxide 26 mmol/L (22-30); Chloride 104 mmol/L (98-107); Estimated Creatinine Clearance 65 ml/min; Glucose 95 mg/dl (70-99); Potassium 3.6 mmol/L (3.5-5.1); Sodium 133 mmol/L (135-145); eGFR > 60.00
[2024-12-25 11:05] VITALS: BP 167/85; PULSE 64
[2024-12-25 12:00] LABS: Glucose - Point of Care 107 mg/dl (70-99)
--- NOTE | 2024-12-25 14:21 | W.PN.HOSP.TC ---
Today's Communication/Plan
-
CT head
Assessment / Plan
Assessment / Plan
A/P: Patient is an 78y F with PMH significant for Parkinson's disease, ASCVD and hypertension who presents to ED complaining of about four weeks of abdominal discomfort and N/V.
N/V with abdominal pain and weight loss. Symptomatology ongoing x [address] abdomen pelvis reviewed demonstrating some right lower quadrant small bowel thickening could be enteritis
Strange for infectious enteritis to be ongoing for more than 2 weeks.
GI eval
- Ordered a obstruction series that demonstrated nonobstructive bowel gas pattern. Mild stool contrast material in sigmoid colon/rectum. Colonic diverticulosis
-May need additional small bowel imaging. Appreciate GI input
-Esophogram demonstrating presbyesophagus
-GI believes that this could also be related to a hyponatremic episode however she is chronically hyponatremic ranging between 129 and 132. I have a very low clinical suspicion that hyponatremia to this extent causes symptoms
Continue current diet
GI may consider MR enterography however has a DBS
s/p EGD which has no obvious path to account for nausea ;has eythema in gastric body and antrum , and gastric polyps. Bx pending
Obtain a CT head to rule out intracranial pathology
If CT of the head is negative consider maybe switching of the DBS and see what happens to his symptoms of nausea or consider changing her Parkinson's meds and see what happens.
Hypoglycemia
Hypoglycemic protocol
Parkinson's Disease with history of agitation so was put on Nuplazid s/p deep brain stimulator
- Patient states neurologist at [facility] on the current regimen of medicine apparently is keeping the symptoms under control mostly. Will continue with her regimen.
Acute agitation-unclear if this is Parkinson disease related cognitive issue or missing her Nuplazid. Apart from GI symptom as above no obvious other infectious concern. Mild natremia noted but I doubt that has any relation to agitation. She had
prior episodes of agitation during hospitalization. Suspect sundowning and missing medication.
Daughter brought Nuplazid. Continue with other Parkinson's medicine.
No further agitation
ASCVD
- Continue ASA daily uninterrupted.
- Continue statin
Hypothyroidism
- Continue T4 supplementation.
Lupus
- No acute rashes / skin changes / joint pain / etc.
DVT Prophylaxis: Lovenox
Code Status: DNR
Discussed with neurology
Discussed with daughter at bedside
Portions of this chart may have been created with voice recognition software. Occasional wrong word or 'sound alike' substitutions may have occurred due to the inherent limitations of voice recognition software.
Anticipated Discharge: > 48 hours
Subjective/Interval History
-
Date of Service: December 25, 2024
Back from [facility].
Denies any nausea at this minute. But having daily nausea requiring IV Zofran.
Denies any headache.
Objective Data
-
Labs:
Laboratory Results
12/25/24
07:37
WBC 5.2
Hgb 12.7
Hct 37.9
Plt Count 144
Sodium 133 L
Potassium 3.6
Chloride 104
Carbon Dioxide 26
BUN 8
Creatinine 0.6
Glucose 95
Calcium 8.3 L
Vital Signs:
Vital Signs
Temp Pulse Resp BP Pulse Ox
98.8 F 64 18 167/85 98
12/25/24 08:25 12/25/24 08:25 12/25/24 08:25 12/25/24 08:25 12/25/24 08:30
I&O
12/24/24 12/25/24 12/26/24
06:59 06:59 06:59
Intake Total 1440 / 1440 1470 / 1470
Output Total 175 / 175
Balance 1440 / 1440 1295 / 1295
Physical Exam
-
General: No Apparent Distress
HEENT: Moist Mucous Membranes
Respiratory: Clear to Auscultation
Cardiac: Regular Rhythm and S1/S2; Negative Tachycardic
GI: Soft and Nontender
Neuro: AO x 3
Psych: Calm
Data Reviewed
-
Labs: Labs Reviewed by me
[2024-12-25] MEDS: NON-FORMULARY ITEM 2 CAP PO (15:10)
[2024-12-25 15:40] VITALS: BP 151/90
--- NOTE | 2024-12-25 15:53 | W.PN.NEURO.1 ---
Addendum entered and electronically signed by Jacquelyn Garnica NP 12/27/24 14:02:
Clarification of prior documentation.
II. Mild encephalopathy- likely toxic metabolic encephalopathy.
Addendum entered and electronically signed by José Miguel Horta MD 12/25/24 21:26:
I have seen and examined the patient today along with the nurse practitioner Jacquelyn Garnica. I agree with the nurse practitioner Jacquelyn Garnica's assessment and the management plan. The following is my addendum.
The patient is an 78 years old female, for whom the neurology consultation was requested for evaluation of a suspected seizure. There is no history available to suggest a seizure. The patient presented to the hospital for about 4 weeks of
abdominal discomfort and nausea and vomiting. The patient has history of Parkinson disease. The patient is status post deep brain stimulator placement about 6 years ago with good results as per patient and her daughter. The patient has been doing
well for about 6 years since placement of deep brain stimulator and it is unlikely that it would be triggering her nausea and vomiting, however her symptoms of nausea and vomiting may be related to the use of Crexont, that was recently started about
4 weeks ago.
Discussed with Dr. Isaac West.
Will sign off. Please call if you have any question.
Original Note:
Today's Communication / Plan
-
.
Neuro Assessment/Plan
Assessment
This is an 78-year-old woman who presented to [facility] on 12/[facility]24 with abdominal pain, nausea and emesis. Neurology consultation was requested for evaluation and management of suspected seizure.
No information regarding seizures available in EMR. Ms. Alexandra endorses ongoing nausea recent 15 pound weight loss. Her daughter reports that her DBS was placed 6 years ago at [place]. Crexont was started recently, about 4 weeks ago.
I. IPS, s/p DBS
II. Mild encephalopathy
III. Chronic hyponatremia
IV. Nausea, vomiting unclear cause.
Plan
-Unlikely that DBS would be triggering nausea/vomiting after 6 years. Crexont is a new medication, these symptoms are possibly a side effect of the medication.
- Avoid dependent aortic blockers
- Administer Sinemet and Crexont with meals
- Please obtain medical records from patient's neurologist.
Subjective/Objective
Subjective Data
Date of Service: December 25, 2024
No acute events overnight. Patient's daughter at bedside cannot recall any events that appeared seizure-like but notes that the patient hasn't been getting her PD medications consistently and has been having more hallucinations.
Objective Data
Vital Signs
Temp Pulse Resp BP Pulse Ox
97.8 F 69 18 151/90 98
12/25/24 15:40 12/25/24 15:40 12/25/24 15:40 12/25/24 15:40 12/25/24 15:40
Lab Results
12/25/24 07:37
12/25/24 07:37
Sodium 133 mmol/L (135-145) L 12/25/24 07:37
Potassium 3.6 mmol/L (3.5-5.1) 12/25/24 07:37
BUN 8 mg/dl (7-17) 12/25/24 07:37
Glucose 95 mg/dl (70-99) 12/25/24 07:37
Calcium 8.3 mg/dl (8.4-10.2) L 12/25/24 07:37
Patient Allergies
penicillin V Allergy (Verified 11/05/22 17:27)
Rash
Review of Systems
-
History Source: Patient
Neuro: Negative Dizzy, Headache, Weakness, Numbness, Ataxia, Tremors or Speech Problem
Physical Exam
-
General: No Apparent Distress
Eyes: No Ptosis and PERRLA
HEENT: Normocephalic and Atraumatic
Neck: Full Range of Motion
GI: Non-distended
Psych: Confused
Extended Neurological Exam
Mood & Affect: Mood Unremarkable and Affect Unremarkable
Attention Span & Concentration: Awake, Alert and Interactive
Memory: Reduced
Tremor: Hand Tremor Absent and Head Tremor Absent
Speech: Quality Unremarkable, Quantity Unremarkable and Rate of Production Unremarkable
Cranial Nerves III, IV, : Extraocular Movement: Extraocular Movement Full in all Directions
Cranial Nerve VII: Facial Symmetry: Normal Facial Symmetry
Cranial Nerve VIII: Hearing: Unremarkable Hearing to Normal Conversational Volume
Muscle Strength, Overall: Full Throughout
Pronator Drift: No Drift in Upper Extremities
Coordination: [id number] Testing Unremarkable
Data Reviewed
-
Labs: Report Reviewed
Reviewed with: Physician, Patient and Family
Medications
-
Active Medications
Generic Name Dose Route Start Last Admin
Trade Name Freq PRN Reason Stop Dose Admin
Acetaminophen 650 mg 12/16/24 04:44
Acetaminophen 325 Mg Tablet PO 01/13/25 04:43
Q4HPRN PRN
Mild Pain / Temp > 101
Aspirin 81 mg 12/16/24 08:00 12/25/24 08:21
Aspirin 81 Mg Chewable Tablet PO 01/13/25 07:59 Not Given
DAILY MARIANA
Atorvastatin Calcium 40 mg 12/16/24 22:00 12/24/24 20:12
Atorvastatin (Lipitor) 40 Mg Tablet PO 01/13/25 21:59 Not Given
HS MARIANA
Carbidopa/Levodopa 1 tablet 12/16/24 14:09 12/22/24 11:40
Carbidopa (25 Mg)/Levodopa (100 Mg) Regular Release Tablet PO 01/13/25 14:08 1 tablet
DAILYPRN PRN Administration
before exercise
Carbidopa/Levodopa 1 tablet 12/16/24 22:00 12/24/24 22:24
Carbidopa (50 Mg)/Levodopa (200 Mg) Extended Release Tablet PO 01/13/25 21:59 Not Given
HS MARIANA
Dextrose 12.5 grams 12/21/24 01:33
Dextrose 50% (0.5 Grams/Ml) 50 Ml Syringe IV 01/18/25 01:32
[id number] PRN
hypoglycemia
Protocol
Docusate Sodium 100 mg 12/17/24 20:00 12/25/24 08:21
Docusate Sodium 100 Mg Capsule PO 01/14/25 19:59 Not Given
BID MARIANA
Enoxaparin Sodium 40 mg 12/16/24 18:00 12/23/24 17:03
Enoxaparin Sodium 40 Mg/0.4 Ml Syringe SC 01/13/25 17:59 40 mg
On Hold: 12/24/24 10:42 QPM MARIANA Administration
Resume: 12/25/24 20:00
Famotidine 40 mg 12/16/24 22:00 12/24/24 20:12
Famotidine 20 Mg Tablet PO 01/13/25 21:59 Not Given
HS MARIANA
Glucagon 1 mg 12/21/24 01:33
Glucagon 1 Mg Vial IM 01/18/25 01:32
PRN PRN
hypoglycemia
Protocol
Hydrochlorothiazide 25 mg 12/17/24 08:00 12/25/24 08:21
Hydrochlorothiazide 25 Mg Tablet PO 01/14/25 07:59 Not Given
DAILY MARIANA
Hydroxychloroquine Sulfate 200 mg 12/16/24 20:00 12/24/24 20:12
Hydroxychloroquine 200 Mg Tablet PO 01/13/25 19:59 Not Given
SUTUTHSA@1999 MARIANA
Hydroxychloroquine Sulfate 400 mg 12/18/24 20:00 12/22/24 21:39
Hydroxychloroquine 200 Mg Tablet PO 01/15/25 19:59 400 mg
MOWEFR@1999 MARIANA Administration
Dextrose/Sodium Chloride 1,000 mls @ 80 mls/hr 12/24/24 15:00 12/25/24 15:09
D5/0.45%Nacl IV 1,000 mls
.[id number] MARIANA Administration
Insulin Aspart 0 units 12/25/24 11:24 12/25/24 12:13
Insulin Aspart Low Resistance 300 Units/3 Ml Pen.Injctr SC 01/22/25 06:59 Not Given
AC MARIANA
Protocol
Levothyroxine Sodium 137 mcg 12/18/24 06:00 12/25/24 04:46
Levothyroxine 137 Mcg Tablet PO 01/15/25 05:59 Not Given
MoTuWeThFr@0600 MARIANA
Lisinopril 40 mg 12/16/24 15:00 12/25/24 08:22
Lisinopril 20 Mg Tablet PO 01/13/25 14:59 Not Given
DAILY MARIANA
Loperamide HCl 2 mg 12/16/24 14:51
Loperamide 2 Mg Capsule PO 01/13/25 14:50
Q4H PRN
diarrhea
Melatonin 5 mg 12/16/24 22:00 12/24/24 20:12
Melatonin 5 Mg Tablet PO 01/13/25 21:59 Not Given
HS MARIANA
Metoprolol Succinate 12.5 mg 12/16/24 22:00 12/24/24 20:13
Metoprolol 12.5 Mg Extended Release Dose (1/2 Of 25 Mg Xl Tablet) PO 01/13/25 21:59 Not Given
HS MARIANA
Carbidopa-Levodopa [ 0 cap 12/16/24 16:00 12/25/24 15:10
Crexont] 70-280 Mg PO 01/13/25 15:59 2 cap
Er Capsule 2 Caps Po TID MARIANA Administration
Tid
Pimavanserin [ 34 mg 12/17/24 15:00 12/25/24 08:22
Nuplazid] 34 Mg PO 01/14/25 14:59 Not Given
Capsule Po Daily DAILY MARIANA
Ondansetron HCl 4 mg 12/16/24 04:44 12/24/24 09:00
Ondansetron 4 Mg/2 Ml Vial IV 01/13/25 04:43 4 mg
Q6HPRN PRN Administration
nausea and vomiting
Ondansetron HCl 4 mg 12/16/24 14:09 12/22/24 22:11
Ondansetron 4 Mg (Orally-Disintegrating) Tablet PO 01/13/25 14:08 4 mg
Q8HPRN PRN Administration
nausea/vomiting
Pantoprazole Sodium 40 mg 12/16/24 08:00 12/25/24 08:22
Pantoprazole 40 Mg Delayed Release Tablet PO 01/13/25 07:59 Not Given
DAILY MARIANA
Polyethylene Glycol 17 grams 12/23/24 20:00 12/25/24 08:21
Polyethylene Glycol Powder 17 Grams Packet PO 01/20/25 19:59 Not Given
BID MARIANA
Quetiapine Fumarate 75 mg 12/16/24 22:00 12/24/24 20:12
Quetiapine 25 Mg Tablet PO 01/13/25 21:59 Not Given
HS MARIANA
Quetiapine Fumarate 25 mg 12/16/24 15:00 12/25/24 08:22
Quetiapine 25 Mg Tablet PO 01/13/25 14:59 Not Given
DAILY MARIANA
Rivastigmine Tartrate 6 mg 12/16/24 20:00 12/25/24 08:21
Rivastigmine (Exelon) 3 Mg Capsule PO 01/13/25 19:59 Not Given
BID MARIANA
Sennosides 17.2 mg 12/19/24 22:00 12/24/24 20:12
Sennosides (Senokot) 8.6 Mg Tablet PO 01/16/25 21:59 Not Given
HS MARIANA
Sodium Chloride 0 flush 12/16/24 05:00
Sodium Chloride 0.9% (Flush) Syringe IV 01/13/25 04:59
PER PROTOCOL MARIANA
Home Medications
�Medication �Instructions �Recorded
atorvastatin 40 mg tablet 40 mg PO HS High cholesterol 11/23/21
carbidopa ER 50 mg-levodopa 200 mg 1 tab PO HS Parkinson Disease 12/11/21
tablet,extended release
quetiapine 25 mg tablet 25 mg PO DAILY Psychosis in 12/11/21
Parkinson Disease
rivastigmine tartrate 3 mg capsule 6 mg PO BID Parkinson Disease 12/11/21
aspirin 81 mg chewable tablet 81 mg PO DAILY #0 tabs 12/14/21
lisinopril 40 mg tablet 40 mg PO DAILY 11/05/22
acetaminophen 325 mg tablet 650 mg PO Q4H PRN mild pain/fever 12/16/24
carbidopa 25 mg-levodopa 100 mg 1 tab PO DAILYPRN PRN before 12/16/24
tablet exercise
carbidopa 70 mg-levodopa ER 280 mg 2 cap PO TID 12/16/24
capsule,immed and extended release
(Crexont)
famotidine 40 mg tablet 40 mg PO HS 12/16/24
hydrochlorothiazide 25 mg tablet 25 mg PO DAILY 12/16/24
hydroxychloroquine 200 mg tablet 200 mg PO SUTUTHSA@199912/16/24
hydroxychloroquine 200 mg tablet 400 mg PO MOWEFR@199912/16/24
levothyroxine 137 mcg tablet 137 mcg PO MOTUWETHFR 12/16/24
loperamide 2 mg tablet 2 mg PO Q4H PRN diarrhea 12/16/24
melatonin 2.5 mg chewable tablet 5 mg PO HS 12/16/24
metoprolol succinate 25 mg 12.5 mg PO HS 12/16/24
tablet,extended release 24 hr
ondansetron 4 mg disintegrating 4 mg PO Q8HPRN PRN nausea/vomiting 12/16/24
tablet
pantoprazole 40 mg tablet,delayed 40 mg PO DAILY 12/16/24
release
pimavanserin 34 mg capsule 34 mg PO DAILY 12/16/24
(Nuplazid)
quetiapine 25 mg tablet 75 mg PO HS 12/16/24
[2024-12-25 17:22] LABS: Glucose - Point of Care 110 mg/dl (70-99)
--- NOTE | 2024-12-25 19:01 | CM ---
Neuro consult completed. Medication management ongoing.
[facility] has bed available tomorrow
Plan: anticipating dc >48 hrs.
[2024-12-25] MEDS: MIRALAX 17 GRAMS PO (19:35)
[2024-12-25] MEDS: PLAQUENIL 400 MG PO (19:35)
[2024-12-25] MEDS: ZOFRAN 4 MG IV (19:50)
[2024-12-25 21:27] LABS: Glucose - Point of Care 96 mg/dl (70-99)
[2024-12-25] MEDS: TOPROL XL 12.5 MG PO (21:28)
[2024-12-25] MEDS: LIPITOR PO (21:28)
[2024-12-25] MEDS: SENOKOT PO (21:29)
[2024-12-25] MEDS: PEPCID PO (21:29)
[2024-12-25] MEDS: SEROQUEL 75 MG PO (21:29)
[2024-12-25] MEDS: SINEMET CR 50/200 (EXTENDED RELEASE) PO (21:29)
[2024-12-25] MEDS: MELATONIN PO (21:29)
[2024-12-25 23:23] VITALS: BP 109/61
[2024-12-26] MEDS: D5/0.45%NACL 1000 IV ×2 (04:53→23:37)
--- NOTE | 2024-12-26 06:27 | PTCARENOTE ---
Pt unable to swallow medications without immediately vomiting. Zofran administered. This RN revisited medication administration. Pt was able to keep down Plaquenil, Toprol XL, Seroquel. Pt slept throughout night.
[2024-12-26 07:35] VITALS: BP 151/68
[2024-12-26] MEDS: ZOFRAN 4 MG IV (08:02)
[2024-12-26] MEDS: SYNTHROID PO (08:02)
--- NOTE | 2024-12-26 08:15 | W.PN.GI.CBS2 ---
Addendum entered and electronically signed by Melva Lopez DO 12/26/24 14:16:
i spoke to the daughter, reviewed the chart, medications and time line and don't have a great reason for her nausea/vomiting/lower abdominal ache. She ate 80% of a regular diet for lunch so will see how she does. Daughter said all meds have been
stable for yrs except the longer acting carbi/levo and I see it was decreased. if she's not improving tomorrow i'm going to see if i can get her drink oral contrast for a CTEnterography to look at her small bowel.
Addendum entered and electronically signed by Melva Lopez, 12/26/24 12:18:
Patient seen and examined independently of [facility]. I agree with her note with my additions below
Patient has had ongoing nausea and abdominal pain for weeks. Prior imaging done earlier in November was relatively unrevealing. Questionable right lower quadrant enteritis.
Patient is on multiple medications with GI side effects including rivastigmine generally 50% of patients get nausea, Plaquenil often causes abdominal pain anorexia and some nausea, carbidopa-levodopa high incidence of nausea vomiting specially in
the longer acting, Seroquel would have a lower risk of nausea roughly 5 to 10%.
I am going to call her daughter to see if i can get a timeline on her meds.
Does have vague lower abdominal achy discomfort. Had a suppository this morning for constipation.
Complains of being queasy, not vomiting today. GOIng to try to advance her diet.
Consider CTE but patient unlikely to drink enough contrast.
Added CRP and LFTs to am
Original Note:
Today's Communication / Plan
-
still with some complaints of nausea
s/p EGD and HCT without etiology of symptoms
appreciate neurology input then did question if Crexont causing GI symptoms -- pt did have trial off without improvement
cont Miralax BID, colace BID and senna HS- only small stools last 2 days will give ducolax today
consider MRE but with DBS may not be able to get MRE -- T/C CTE if symptoms persist but pt may not be able to take contrast for study as unable to completed UGI testing with contrast
cont to encourage PO intake
review with nursing staff intakes 25-100% recorded
will recheck wt today to see if wt loss continued during this admission -- last weight was 70.7 kg on 12/16 with range around 60-70 kg since 2010
Assessment / Plan
-
Summary: 78yo presents with hx SLE, parkinson's, CAD with prior stenting, colon polyps, GERD, HTN, hyperlipidemia, hypothyroidism, myelofibrosis, prior brain surgery, breast reduction with admission 12/15 with abdominal pain with nausea and
vomiting. In review PCP noted prior to admission noted with recent wt loss of 15 lbs since October. Since admission noted with stable CBC, persistent hyponatremia with Na 129-130, K 3.1, initial aimee 1.5 and alk phos 129 with normal
transaminases. She also had [address] with last 12/16 did question enteritis and SB wall thickening otherwise stable. She also admits to change in Parkinson meds with now extended release and per nursing staff was off for several days but
restarted. In reviewing with patient chronic decreased appetite. She also admits to chronic constipation and lower abdominal pain. She was having some nausea and vomiting intermittently. She was taking Miralax minimally as needed prior to
admission but now placed on Miralax, colace, senna and given enema. Pt was noted with concern for posssible seizure during admission s/p neurology eval.
12/13/24 CT AP- No significant acute abnormality. Bowel without evidence of obstruction or adjacent inflammatory changes. Diverticulosis.
12/16/24 CT AP- Apparent wall thickening of SB in RLQ, possibly due to enteritis, no intestinal obstruction or free air.
12/20/24 OBS SERIES- Nonobstructive bowel gas pattern. Mild stool and contrast material in the sigmoid colon and rectum. Colonic diverticulosis.
12/22/24 ESOPHAGRAM- Presbyesophagus. Small hiatal hernia. Unable to do SBFT as pt unable to swallow adequate volume contrast
12/25/24 EGD - Normal esophagus. Erythematous mucosa in the gastric body and antrum. Biopsied. A few gastric polyps. Biopsied. Normal examined duodenum. Biopsied. Biopsies were taken with a cold forceps for evaluation of eosinophilic
esophagitis.
12/25/24- HCT Relatively stable chronic findings. No acute intracranial abnormality identified.
Impression:
-wt loss with decreased appetite
-vomiting with hiccups
-abdominal pain
-CT with possible enteritis 12/16
-constipation
-hx parkinson's with change to long acting medication
-hyponatremia
-mild bili and alk phos elevation - normalized
-DBS
other med problems:
SLE,CAD with prior stenting, colon polyps, GERD, HTN, hyperlipidemia, hypothyroidism, myelofibrosis, prior brain surgery, breast reduction
PLAN:
still with some complaints of nausea
s/p EGD and HCT without etiology of symptoms
appreciate neurology input then did question if Crexont causing GI symptoms -- pt did have trial off without improvement
cont Miralax BID, colace BID and senna HS- only small stools last 2 days will give ducolax today
consider MRE but with DBS may not be able to get MRE -- T/C CTE if symptoms persist but pt may not be able to take contrast for study as unable to completed UGI testing with contrast
cont to encourage PO intake
review with nursing staff intakes 25-100% recorded
will recheck wt today to see if wt loss continued during this admission -- last weight was 70.7 kg on 12/16 with range around 60-70 kg since 2010
Subjective
Subjective
Date of Service: December 26, 2024
12/25 brown stool small stools, on soft diet with variable intakes of 25- 100% recorded still with some nausea
Objective
Data Reviewed
Laboratory Data:
Laboratory Results
12/25/24 07:37
12/25/24 07:37
Laboratory Results
Magnesium 1.7 mg/dl (1.6-2.3) 12/16/24 05:01
Total Bilirubin 0.8 mg/dl (0.2-1.3) 12/19/24 09:14
AST 21 U/L (14-36) 12/19/24 09:14
ALT 12 U/L (0-35) 12/19/24 09:14
Alkaline Phosphatase 102 U/L (38-126) 12/19/24 09:14
Lipase 220 U/L (23-300) 12/15/24 19:10
Vital Signs and I&O:
Vital Signs
Temp Pulse Resp BP Pulse Ox
97.6 F 59 18 109/61 98
12/25/24 23:23 12/25/24 23:23 12/25/24 23:23 12/25/24 23:23 12/25/24 23:23
I&O
12/25/24 12/26/24 12/27/24
06:59 06:59 06:59
Intake Total 1470 / 1470 2159 / 2160
Output Total 175 / 175
Balance 1295 / 1295 2159 / 2160
Physical Exam
Physical Exam
HEENT: Anicteric and Moist mucous membranes
Cardiology: Normal Sinus Rhythm
Pulmonary: Clear
GI: Soft, Non Distended and Tender (minimal with palpation)
Extremities: No Edema
Neuro: Non Focal (soft spoken but answers all questions )
[2024-12-26 08:21] LABS: Glucose - Point of Care 86 mg/dl (70-99)
[2024-12-26] MEDS: DULCOLAX 10 MG RECTAL (09:02)
[2024-12-26] MEDS: COLACE PO ×2 (09:06→19:38)
[2024-12-26] MEDS: MIRALAX PO ×2 (09:07→19:38)
[2024-12-26] MEDS: LOW STRENGTH ASPIRIN PO (09:07)
[2024-12-26] MEDS: ORETIC PO (09:07)
[2024-12-26] MEDS: NON-FORMULARY ITEM PO ×3 (09:08→10:12)
[2024-12-26] MEDS: PROTONIX PO (09:08)
[2024-12-26] MEDS: ZESTRIL PO (09:08)
[2024-12-26] MEDS: SEROQUEL 25 MG PO (09:18)
[2024-12-26] MEDS: EXELON PO ×2 (09:19→10:12)
[2024-12-26] MEDS: EXELON 3 MG PO (09:30)
[2024-12-26] MEDS: NON-FORMULARY ITEM 2 CAP PO ×2 (09:30→15:19)
--- NOTE | 2024-12-26 10:14 | PN.CDI ---
CDI
- -
CDI:
Physician Documentation Request
Admit Date: 12/18/24 14:31
Dear Doctor/[employer]IV[employer]ER
Please review the following and provide your response in the progress notes.
Clinical Indicators:
Pt admitted with enteritis/constipation / Nausea /Vomiting /Hyponatremia
Neurology consult, ' Mental Status: Alert, oriented to person, month, not to date. Impaired attention. Follows complex requests across the midline. ...Mild encephalopathy...'
Neurology progress note 12/25,' Mild encephalopathy...Psych: Confused...'
Documented in progress notes throughout the record, ' ...Acute agitation-unclear if this is Parkinson disease related cognitive issue or missing her Nuplazid....Suspect sundowning and missing medication....'
Please specify the known or suspected type of the documented encephalopathy.
Metabolic
Toxic metabolic
Due to a specified condition (such as UTI, hyponatremia, CVA etc)
Other ( please specify)
Use of terms such as suspected, likely, concern for, or probable (associated with a specific diagnosis that is being evaluated, monitored, or treated as if it exists) are acceptable and can be coded in the inpatient setting, when documented at the
time of discharge.
Thank you,
Skylar Rodriguez RN
CDI Specialist
[place] [facility]
Please use your independent medical judgment in providing your response.
--- NOTE | 2024-12-26 10:32 | CM ---
Continues with nausea.
Updated clinical sent to [facility]. [facility] made aware that pt may not be discharged for 48hrs.
Speech rec diet advancement to allow granola and raisin bran.
PT continues to rec SNF
Plan:DC to SNF when stable
--- NOTE | 2024-12-26 10:38 | W.PN.HOSP.TC ---
Today's Communication/Plan
-
Decrease Crexont dose to 1 tid
CW nutritional support per GI
Assessment / Plan
Assessment / Plan
A/P: Patient is an 78y F with PMH significant for Parkinson's disease, ASCVD and hypertension who presents to ED complaining of about four weeks of abdominal discomfort and N/V.
N/V with abdominal pain and weight loss. Symptomatology ongoing x [address] abdomen pelvis reviewed demonstrating some right lower quadrant small bowel thickening could be enteritis
Strange for infectious enteritis to be ongoing for more than 2 weeks.
GI eval
- Ordered a obstruction series that demonstrated nonobstructive bowel gas pattern. Mild stool contrast material in sigmoid colon/rectum. Colonic diverticulosis
-May need additional small bowel imaging. Patient cannot get MRE due to deep brain stimulator appreciate GI input
-Esophogram demonstrating presbyesophagus
- s/p EGD which has no obvious path to account for nausea ;has erythema in gastric body and antrum , and gastric polyps. Bx pending
- CT head shows no intracranial pathology
Ongoing GI symptoms of nausea. Poor oral intake. Discussed with neurology who would want to see lower dose of Crexont for next day or so and see if nausea is related to PD meds.
Hypoglycemia
Hypoglycemic protocol
Parkinson's Disease with history of agitation so was put on Nuplazid s/p deep brain stimulator
- Patient states neurologist at [facility] on the current regimen of medicine apparently is keeping the symptoms under control mostly. Plan to decrease Crexont for a day or two and see what happens to her symptoms of nausea
Acute agitation-unclear if this is Parkinson disease related cognitive issue or missing her Nuplazid. Apart from GI symptom as above no obvious other infectious concern. Mild natremia noted but I doubt that has any relation to agitation. She had
prior episodes of agitation during hospitalization. Suspect sundowning and missing medication.
Daughter brought Nuplazid. Continue with other Parkinson's medicine.
No further agitation
ASCVD
- Continue ASA daily uninterrupted.
- Continue statin
Hypothyroidism
- Continue T4 supplementation.
Lupus
- No acute rashes / skin changes / joint pain / etc.
DVT Prophylaxis: Lovenox
Code Status: DNR
Discussed with neurology
Discussed with daughter about the PD meds plan
Portions of this chart may have been created with voice recognition software. Occasional wrong word or 'sound alike' substitutions may have occurred due to the inherent limitations of voice recognition software.
Anticipated Discharge: > 48 hours
Subjective/Interval History
-
Date of Service: December 26, 2024
Continued nausea on a daily basis especially in the morning. She received Zofran this morning. She has refused to take her medications. She does not have an appetite to this morning.
No abdominal pain.
No shortness of breath or chest pain.
Objective Data
-
Vital Signs:
Vital Signs
Temp Pulse Resp BP Pulse Ox
98.6 F 68 18 151/68 100
12/26/24 07:35 12/26/24 07:35 12/26/24 07:35 12/26/24 07:35 12/26/24 07:35
I&O
12/25/24 12/26/24 12/27/24
06:59 06:59 06:59
Intake Total 1470 / 1470 2159 / 2160
Output Total 175 / 175
Balance 1295 / 1295 2159 / 216
Physical Exam
-
General: No Apparent Distress
Respiratory: Clear to Auscultation and Non Labored Respirations; Negative Accessory Resp Muscle Use
Cardiac: Regular Rhythm and S1/S2; Negative Tachycardic
GI: Soft, Nontender and Nondistended
Neuro: Awake, Alert and Oriented
Psych: Calm; Negative Agitated
Data Reviewed
-
Labs: Labs Reviewed by me
[2024-12-26 11:37] VITALS: BMI 24.1
[2024-12-26 11:47] LABS: Glucose - Point of Care 94 mg/dl (70-99)
[2024-12-26 15:30] VITALS: BP 145/74
[2024-12-26] MEDS: D5/0.45%NACL IV (15:57)
[2024-12-26 17:08] LABS: Glucose - Point of Care 108 mg/dl (70-99)
[2024-12-26] MEDS: LOVENOX 40 MG SC (17:39)
--- NOTE | 2024-12-26 18:10 | PTCARENOTE ---
Pt tolerated regular diet and able to take some medications.
[2024-12-26] MEDS: EXELON 6 MG PO (19:37)
[2024-12-26] MEDS: PLAQUENIL PO (20:30)
[2024-12-26 21:07] LABS: Glucose - Point of Care 95 mg/dl (70-99)
[2024-12-26] MEDS: PEPCID PO (21:08)
[2024-12-26] MEDS: SENOKOT PO (21:08)
[2024-12-26] MEDS: TOPROL XL 12.5 MG PO (21:09)
[2024-12-26] MEDS: MELATONIN 5 MG PO (21:09)
[2024-12-26] MEDS: SEROQUEL 75 MG PO (21:09)
[2024-12-26] MEDS: LIPITOR PO (21:10)
[2024-12-26] MEDS: NON-FORMULARY ITEM 1 CAP PO (21:47)
[2024-12-26] MEDS: SINEMET CR 50/200 (EXTENDED RELEASE) 1 TABLET PO (21:47)
[2024-12-26 23:47] VITALS: BP 138/60
[2024-12-26] MEDS: TUMS CHEWABLE TABLET 200 MG PO (23:48)
[2024-12-27] MEDS: SYNTHROID 137 MCG PO (05:16)
[2024-12-27 07:30] VITALS: BP 138/67
[2024-12-27 07:31] LABS: Glucose - Point of Care 113 mg/dl (70-99)
[2024-12-27] MEDS: COLACE PO ×2 (07:53→20:00)
[2024-12-27] MEDS: MIRALAX PO (07:53)
[2024-12-27] MEDS: NON-FORMULARY ITEM 1 CAP PO ×3 (07:54→21:06)
[2024-12-27] MEDS: PROTONIX 40 MG PO (07:54)
[2024-12-27] MEDS: EXELON 6 MG PO (07:57)
[2024-12-27] MEDS: SEROQUEL 25 MG PO (07:57)
[2024-12-27] MEDS: ZESTRIL 40 MG PO (07:58)
[2024-12-27] MEDS: LOW STRENGTH ASPIRIN 81 MG PO (07:58)
[2024-12-27] MEDS: NON-FORMULARY ITEM 34 MG PO (07:58)
[2024-12-27] MEDS: ORETIC 25 MG PO (07:58)
[2024-12-27 08:21] LABS: ALT (SGPT) < 10 U/L (0-35); AST (SGOT) 16 U/L (14-36); Albumin 2.8 g/dl (3.5-5.0); Alkaline Phosphatase 125 U/L (38-126); Blood Urea Nitrogen 13 mg/dl (7-17); C-Reactive Protein < 5.00 mg/L (0.0-10.00); Calcium 8.4 mg/dl (8.4-10.2); Carbon Dioxide 25 mmol/L (22-30); Chloride 103 mmol/L (98-107); Estimated Creatinine Clearance 64 ml/min; Glucose 103 mg/dl (70-99); Magnesium 1.6 mg/dl (1.6-2.3); Potassium 3.5 mmol/L (3.5-5.1); Sodium 131 mmol/L (135-145); Total Protein 5.2 g/dl (6.3-8.2); eGFR > 60.00
--- NOTE | 2024-12-27 08:41 | W.PN.GI.CBS2 ---
Addendum entered and electronically signed by Melva Lopez DO 12/27/24 12:20:
Patient seen and examined independently of JIG BUILDER HELPER. I agree with her note with my additions below
Patient denies any abdominal pain today. She is not tender on exam. She did eat well yesterday. Her only complaint is she had 1 episode of diarrhea this morning. She feels like she wants and could get discharged medically. She lives in assisted
living and unclear if she needs rehab prior to home.
We did give her a bowel regimen but she has refused most of the doses lately.
Will d/c the bowel regimen and use as needed.
No clear etiology for her initial symptoms other than potentially the long acting Crexont which has been decreased.
No need for CTE at this time and would start discharge planning
Discussed with Dr. West
Original Note:
Today's Communication / Plan
-
etiology of decreased appetite, vomiting, and abdominal pain unclear possible medication/ Crexont related (dose now decreased) vs constipation as some improvement with laxative regiment vs other
Patient is on multiple medications with GI side effects including rivastigmine generally 50% of patients get nausea, Plaquenil often causes abdominal pain anorexia and some nausea, carbidopa-levodopa high incidence of nausea vomiting specially in
the longer acting, Seroquel would have a lower risk of nausea roughly 5 to 10%.
I am going to call her da
pt now admits to improved abdominal pain with consistent stools
Pt states today she is feeling better, She vomited 1 teaspoon of mucous but now eating
she is asking about discharge
if any recurrent issues consider CTE to follow up on enteritis -- unsure if can do MRE with DBS and pt still unsure if she could do volume of contrast needed for studies
cont Miralax BID, colace BID and senna HS- and add ducolax every other for no stools
cont to encourage PO intake
intakes 80-100% of what is recorded
weight 70 kg on admission and 63.5 12/26 with different scale but weight 60-70 kg since 2010
Assessment / Plan
-
Summary: 78yo presents with hx SLE, parkinson's, CAD with prior stenting, colon polyps, GERD, HTN, hyperlipidemia, hypothyroidism, myelofibrosis, prior brain surgery, breast reduction with admission 12/15 with abdominal pain with nausea and
vomiting. In review PCP noted prior to admission noted with recent wt loss of 15 lbs since October. Since admission noted with stable CBC, persistent hyponatremia with Na 129-130, K 3.1, initial aimee 1.5 and alk phos 129 with normal
transaminases. She also had [address] with last 12/16 did question enteritis and SB wall thickening otherwise stable. She also admits to change in Parkinson meds with now extended release and per nursing staff was off for several days but
restarted. In reviewing with patient chronic decreased appetite. She also admits to chronic constipation and lower abdominal pain. She was having some nausea and vomiting intermittently. She was taking Miralax minimally as needed prior to
admission but now placed on Miralax, colace, senna and given enema. Pt was noted with concern for posssible seizure during admission s/p neurology eval.
12/13/24 CT AP- No significant acute abnormality. Bowel without evidence of obstruction or adjacent inflammatory changes. Diverticulosis.
12/16/24 CT AP- Apparent wall thickening of SB in RLQ, possibly due to enteritis, no intestinal obstruction or free air.
12/20/24 OBS SERIES- Nonobstructive bowel gas pattern. Mild stool and contrast material in the sigmoid colon and rectum. Colonic diverticulosis.
12/22/24 ESOPHAGRAM- Presbyesophagus. Small hiatal hernia. Unable to do SBFT as pt unable to swallow adequate volume contrast
12/25/24 EGD - Normal esophagus. Erythematous mucosa in the gastric body and antrum. Biopsied. A few gastric polyps. Biopsied. Normal examined duodenum. Biopsied. Biopsies were taken with a cold forceps for evaluation of eosinophilic
esophagitis.
12/25/24- HCT Relatively stable chronic findings. No acute intracranial abnormality identified.
Impression:
-wt loss with decreased appetite
-vomiting with hiccups
-abdominal pain
-CT with possible enteritis 12/16
-constipation
-hx parkinson's with change to long acting medication
-hyponatremia
-mild bili and alk phos elevation - normalized
-DBS
-concern for seizure on admission
other med problems:
SLE,CAD with prior stenting, colon polyps, GERD, HTN, hyperlipidemia, hypothyroidism, myelofibrosis, prior brain surgery, breast reduction
PLAN:
etiology of decreased appetite, vomiting, and abdominal pain unclear possible medication/ Crexont related (dose now decreased) vs constipation as some improvement with laxative regiment vs other
Patient is on multiple medications with GI side effects including rivastigmine generally 50% of patients get nausea, Plaquenil often causes abdominal pain anorexia and some nausea, carbidopa-levodopa high incidence of nausea vomiting specially in
the longer acting, Seroquel would have a lower risk of nausea roughly 5 to 10%.
I am going to call her da
pt now admits to improved abdominal pain with consistent stools
Pt states today she is feeling better, She vomited 1 teaspoon of mucous but now eating
she is asking about discharge
if any recurrent issues consider CTE to follow up on enteritis -- unsure if can do MRE with DBS and pt still unsure if she could do volume of contrast needed for studies
cont Miralax BID, colace BID and senna HS- and add ducolax every other for no stools
cont to encourage PO intake
intakes 80-100% of what is recorded
weight 70 kg on admission and 63.5 12/26 with different scale but weight 60-70 kg since 2010
Subjective
Subjective
Date of Service: December 27, 2024
on regular diet,12/26 brown stools -- varable intakes but noted 80-100 % last 2 days
Objective
Data Reviewed
Laboratory Data:
Laboratory Results
12/25/24 07:37
12/27/24 07:25
Laboratory Results
Phosphorus 3.3 mg/dl (2.5-4.5) 12/27/24 07:25
Magnesium 1.6 mg/dl (1.6-2.3) 12/27/24 07:25
Total Bilirubin 0.6 mg/dl (0.2-1.3) 12/27/24 07:25
AST 16 U/L (14-36) 12/27/24 07:25
ALT < 10 U/L (0-35) 12/27/24 07:25
Alkaline Phosphatase 125 U/L (38-126) 12/27/24 07:25
Lipase 220 U/L (23-300) 12/15/24 19:10
Vital Signs and I&O:
Vital Signs
Temp Pulse Resp BP Pulse Ox
98.1 F 59 16 138/67 97
12/27/24 07:30 12/27/24 07:30 12/27/24 07:30 12/27/24 07:30 12/27/24 07:30
I&O
12/26/24 12/27/24 12/28/24
06:59 06:59 06:59
Intake Total 2160 / 2160 1560 / 1560
Balance 2160 / 2160 1560 / 1560
Physical Exam
Physical Exam
HEENT: Anicteric and Moist mucous membranes
Cardiology: Normal Sinus Rhythm
Pulmonary: Clear
GI: Soft, Non Distended and Non Tender
Extremities: No Edema
Neuro: Other (soft speech )
--- NOTE | 2024-12-27 08:58 | PN.CDI ---
CDI
- -
CDI:
Physician Documentation Request
Admit Date: 12/18/24 14:31
Dear Doctor/HEAD WORKER
Please review the following and provide your response in the progress notes.
Clinical Indicators:
Pt admitted with enteritis/constipation / Nausea /Vomiting /Hyponatremia
Neurology consult, ' Mental Status: Alert, oriented to person, month, not to date. Impaired attention. Follows complex requests across the midline. ...Mild encephalopathy...'
Neurology progress note 12/25,' Mild encephalopathy...Psych: Confused...'
Documented in progress notes throughout the record, ' ...Acute agitation-unclear if this is Parkinson disease related cognitive issue or missing her Nuplazid....Suspect sundowning and missing medication....'
Please specify the known or suspected type of the documented encephalopathy.
Metabolic
Toxic metabolic
Due to a specified condition (such as UTI, hyponatremia, CVA etc)
Other ( please specify)
Use of terms such as suspected, likely, concern for, or probable (associated with a specific diagnosis that is being evaluated, monitored, or treated as if it exists) are acceptable and can be coded in the inpatient setting, when documented at the
time of discharge.
Thank you,
Skylar Rodriguez RN
CDI Specialist
[place] [facility]
Please use your independent medical judgment in providing your response.
[2024-12-27 11:48] LABS: Glucose - Point of Care 125 mg/dl (70-99)
[2024-12-27] MEDS: D5/0.45%NACL 1000 IV (12:25)
--- NOTE | 2024-12-27 12:37 | W.PN.HOSP.TC ---
Today's Communication/Plan
-
DC planning
Assessment / Plan
Assessment / Plan
A/P: Patient is an 78y F with PMH significant for Parkinson's disease, ASCVD and hypertension who presents to ED complaining of about four weeks of abdominal discomfort and N/V.
N/V with abdominal pain and weight loss. Symptomatology ongoing x [address] abdomen pelvis reviewed demonstrating some right lower quadrant small bowel thickening could be enteritis -not clinically correlating. Infact on tx for constipation .
GI eval
-Ordered a obstruction series that demonstrated nonobstructive bowel gas pattern. Mild stool contrast material in sigmoid colon/rectum. Colonic diverticulosis
-May need additional small bowel imaging if recurrent symptoms. Patient cannot get MRE due to deep brain stimulator appreciate GI input
-Esophogram demonstrating presbyesophagus
- s/p EGD which has no obvious path to account for nausea ;has erythema in gastric body and antrum , and gastric polyps. Bx pending
- CT head shows no intracranial pathology
Nausea seems to have resolved. She has not requested nausea medicine. She is now eating more. Unknown at this point if it is Parkinson disease medication related but seems so as the symptoms have improved since decreasing the dose of Crexont.
Will favor keeping at this dose and follow with Neuro as OP
Hypoglycemia
None.
Parkinson's Disease with history of agitation so was put on Nuplazid s/p deep brain stimulator
- Patient states neurologist at [facility] on the current regimen of medicine apparently is keeping the symptoms under control mostly. Plan to decrease Crexont and follow with Neuro as OP
Acute agitation-unclear if this is Parkinson disease related cognitive issue or missing her Nuplazid. Apart from GI symptom as above no obvious other infectious concern. Mild natremia noted but I doubt that has any relation to agitation. She had
prior episodes of agitation during hospitalization. Suspect sundowning and missing medication.
Daughter brought Nuplazid. Continue with other Parkinson's medicine.
No further agitation
ASCVD
- Continue ASA daily uninterrupted.
- Continue statin
Hypothyroidism
- Continue T4 supplementation.
Hypontremia -suspect sec to nausea .Follow for now
Lupus
- No acute rashes / skin changes / joint pain / etc.
DVT Prophylaxis: Lovenox
Code Status: DNR
Discussed with GI - decrease laxative regimen with loose stools now
Discussed with daughter about the clinial improvement and plan on PD meds and DC plan
Deemed medically stable for DC to rehab.
Portions of this chart may have been created with voice recognition software. Occasional wrong word or 'sound alike' substitutions may have occurred due to the inherent limitations of voice recognition software.
Anticipated Discharge: Today
Subjective/Interval History
-
Date of Service: December 27, 2024
Patient did not need any nausea medicine today. She says she does not feel nauseous. Better appetite and ate little more.
She now has loose stools. No abdominal pain. She is on laxative regimen.
No fever or chills.
She feels weak and deconditioned.
Objective Data
-
Labs:
Laboratory Results
12/27/24
07:25
Sodium 131 L
Potassium 3.5
Chloride 103
Carbon Dioxide 25
BUN 13
Creatinine 0.5 L
Glucose 103 H
Calcium 8.4
Total Bilirubin 0.6
AST 16
ALT < 10
Alkaline Phosphatase 125
Vital Signs:
Vital Signs
Temp Pulse Resp BP Pulse Ox
98.1 F 59 16 138/67 97
12/27/24 07:30 12/27/24 07:30 12/27/24 07:30 12/27/24 07:30 12/27/24 07:30
I&O
12/26/24 12/27/24 12/28/24
06:59 06:59 06:59
Intake Total 2160 / 2160 1560 / 1560
Balance 2160 / 2160 1560 / 1560
Physical Exam
-
General: No Apparent Distress (Looks stronger and more engaging in conversation)
HEENT: Moist Mucous Membranes
Respiratory: Clear to Auscultation and Non Labored Respirations; Negative Accessory Resp Muscle Use
Cardiac: Regular Rhythm and S1/S2; Negative Tachycardic
GI: Soft and Nontender
Neuro: AO x 3
Psych: Calm
Data Reviewed
-
Labs: Labs Reviewed by me
[2024-12-27 13:37] VITALS: BP 169/78; PULSE 54; O2SAT 99
--- NOTE | 2024-12-27 13:54 | W.PN.NEURO.1 ---
Addendum entered and electronically signed by José Miguel Horta MD 12/27/24 20:31:
The patient was seen and examined today along with the nurse practitioner Jacquelyn Garnica and I agree with her assessment and management plan. Given below is my addendum.
The patient is an 78 years old female with a past medical history of Parkinson disease, who is status post DBS placement, and was recently started on Crexont. The patient had complained of nausea and vomiting and abdominal discomfort, however
since the dose of Crexont has been decreased, the patient's symptoms have improved, and today she denies any nausea and vomiting.
The plan is to keep the patient at the current dose and she will follow up with her neurologist as an outpatient.
Will sign off please call if you have any question.
Original Note:
Today's Communication / Plan
-
.
Neuro Assessment/Plan
Assessment
This is an 78-year-old woman who presented to [facility] on 12/15/2024 with abdominal pain, nausea and emesis. Neurology consultation was requested for evaluation and management of suspected seizure.
No information regarding seizures available in EMR. Ms. lAexandra endorses ongoing nausea recent 15 pound weight loss. Her daughter reports that her DBS was placed 6 years ago at [facility]. Crexont was started recently, about 4 weeks ago.
I. Parkinson's disease, s/p DBS, recent started on Crexont. Nausea/vomiting improved today after reduction of Crexont and large bowel movement.
II. Mild toxic metabolic encephalopathy
III. Chronic hyponatremia
IV. Nausea, vomiting unclear cause.
Plan
-Continue reduced dose of Crexont.
-Follow-up with outpatient Neurologist regarding further reduction of neurological medications that may be producing nausea.
-Unlikely that DBS would be triggering nausea/vomiting after 6 years.
- Avoid dependent aortic blockers
- Administer Sinemet and Crexont with meals.
We will sign of, please contact our Neurology service with any questions/concerns.
Subjective/Objective
Subjective Data
Date of Service: December 27, 2024
Patient reports that her nausea and vomiting have significantly improved after Crexont dose was reduced and she had a large bowel movement yesterday.
Objective Data
Vital Signs
Temp Pulse Resp BP Pulse Ox
98.1 F 59 16 138/67 97
12/27/24 07:30 12/27/24 07:30 12/27/24 07:30 12/27/24 07:30 12/27/24 07:30
Lab Results
12/25/24 07:37
12/27/24 07:25
Sodium 131 mmol/L (135-145) L 12/27/24 07:25
Potassium 3.5 mmol/L (3.5-5.1) 12/27/24 07:25
BUN 13 mg/dl (7-17) 12/27/24 07:25
Glucose 103 mg/dl (70-99) H 12/27/24 07:25
Calcium 8.4 mg/dl (8.4-10.2) 12/27/24 07:25
Phosphorus 3.3 mg/dl (2.5-4.5) 12/27/24 07:25
Patient Allergies
penicillin V Allergy (Verified 11/05/22 17:27)
Rash
Review of Systems
-
History Source: Patient
Abdomen/GI: Negative Nausea or Vomiting
Neuro: Negative Dizzy, Headache, Weakness, Numbness, Ataxia, Tremors or Speech Problem
Physical Exam
-
General: No Apparent Distress
Eyes: No Ptosis and PERRLA
HEENT: Normocephalic and Atraumatic
Neck: Full Range of Motion
GI: Non-distended
Psych: Confused
Extended Neurological Exam
Mood & Affect: Mood Unremarkable and Affect Unremarkable
Attention Span & Concentration: Awake, Alert and Interactive
Memory: Reduced
Tremor: Hand Tremor Absent and Head Tremor Absent
Involuntary Movement: None
Speech: Quality Unremarkable, Quantity Unremarkable and Rate of Production Unremarkable
Cranial Nerves III, IV, : Extraocular Movement: Extraocular Movement Full in all Directions
Cranial Nerve VII: Facial Symmetry: Normal Facial Symmetry
Cranial Nerve VIII: Hearing: Unremarkable Hearing to Normal Conversational Volume
Muscle Strength, Overall: Full Throughout
Coordination: [id number]-[id number] Testing Unremarkable
Data Reviewed
-
CT Head: Report Reviewed and Image Reviewed
Labs: Report Reviewed
Reviewed with: Physician and Patient
Medications
-
Active Medications
Generic Name Dose Route Start Last Admin
Trade Name Freq PRN Reason Stop Dose Admin
Acetaminophen 650 mg 12/16/24 04:44
Acetaminophen 325 Mg Tablet PO 01/13/25 04:43
Q4HPRN PRN
Mild Pain / Temp > 101
Aspirin 81 mg 12/16/24 08:00 12/27/24 07:58
Aspirin 81 Mg Chewable Tablet PO 01/13/25 07:59 81 mg
DAILY MARIANA Administration
Atorvastatin Calcium 40 mg 12/16/24 22:00 12/26/24 21:10
Atorvastatin (Lipitor) 40 Mg Tablet PO 01/13/25 21:59 Not Given
HS MARIANA
Bisacodyl 10 mg 12/28/24 10:00
Bisacodyl 10 Mg Rectal Suppository RECTAL 01/25/25 09:59
Q48H MARIANA
Carbidopa/Levodopa 1 tablet 12/16/24 14:09 12/22/24 11:40
Carbidopa (25 Mg)/Levodopa (100 Mg) Regular Release Tablet PO 01/13/25 14:08 1 tablet
DAILYPRN PRN Administration
before exercise
Carbidopa/Levodopa 1 tablet 12/16/24 22:00 12/26/24 21:47
Carbidopa (50 Mg)/Levodopa (200 Mg) Extended Release Tablet PO 01/13/25 21:59 1 tablet
HS MARIANA Administration
Dextrose 12.5 grams 12/21/24 01:33
Dextrose 50% (0.5 Grams/Ml) 50 Ml Syringe IV 01/18/25 01:32
[id number] PRN
hypoglycemia
Protocol
Docusate Sodium 100 mg 12/17/24 20:00 12/27/24 07:53
Docusate Sodium 100 Mg Capsule PO 01/14/25 19:59 Not Given
BID MARIANA
Enoxaparin Sodium 40 mg 12/16/24 18:00 12/26/24 17:39
Enoxaparin Sodium 40 Mg/0.4 Ml Syringe SC 01/13/25 17:59 40 mg
QPM MARIANA Administration
Famotidine 40 mg 12/16/24 22:00 12/26/24 21:08
Famotidine 20 Mg Tablet PO 01/13/25 21:59 Not Given
HS MARIANA
Glucagon 1 mg 12/21/24 01:33
Glucagon 1 Mg Vial IM 01/18/25 01:32
PRN PRN
hypoglycemia
Protocol
Hydrochlorothiazide 25 mg 12/17/24 08:00 12/27/24 07:58
Hydrochlorothiazide 25 Mg Tablet PO 01/14/25 07:59 25 mg
DAILY MARIANA Administration
Hydroxychloroquine Sulfate 200 mg 12/16/24 20:00 12/26/24 20:30
Hydroxychloroquine 200 Mg Tablet PO 01/13/25 19:59 Not Given
SUTUTHSA@1999 MARIANA
Hydroxychloroquine Sulfate 400 mg 12/18/24 20:00 12/25/24 19:35
Hydroxychloroquine 200 Mg Tablet PO 01/15/25 19:59 400 mg
MOWEFR@1999 MARIANA Administration
Dextrose/Sodium Chloride 1,000 mls @ 80 mls/hr 12/24/24 15:00 12/27/24 12:25
D5/0.45%Nacl IV 1,000 mls
.[id number] MARIANA Administration
Insulin Aspart 0 units 12/25/24 11:24 12/27/24 12:38
Insulin Aspart Low Resistance 300 Units/3 Ml Pen.Injctr SC 01/22/25 06:59 Not Given
AC MARIANA
Protocol
Levothyroxine Sodium 137 mcg 12/18/24 06:00 12/27/24 05:16
Levothyroxine 137 Mcg Tablet PO 01/15/25 05:59 137 mcg
MoTuWeThFr@0600 MARIANA Administration
Lisinopril 40 mg 12/16/24 15:00 12/27/24 07:58
Lisinopril 20 Mg Tablet PO 01/13/25 14:59 40 mg
DAILY MARIANA Administration
Loperamide HCl 2 mg 12/16/24 14:51
Loperamide 2 Mg Capsule PO 01/13/25 14:50
Q4H PRN
diarrhea
Melatonin 5 mg 12/16/24 22:00 12/26/24 21:09
Melatonin 5 Mg Tablet PO 01/13/25 21:59 5 mg
HS MARIANA Administration
Metoprolol Succinate 12.5 mg 12/16/24 22:00 12/26/24 21:09
Metoprolol 12.5 Mg Extended Release Dose (1/2 Of 25 Mg Xl Tablet) PO 01/13/25 21:59 12.5 mg
HS MARIANA Administration
Carbidopa-Levodopa [ 0 cap 12/16/24 16:00 12/27/24 07:54
Crexont] 70-280 Mg PO 01/13/25 15:59 1 cap
Er Capsule 1 Caps Po TID MARIANA Administration
Tid
Pimavanserin [ 34 mg 12/17/24 15:00 12/27/24 07:58
Nuplazid] 34 Mg PO 01/14/25 14:59 34 mg
Capsule Po Daily DAILY MARIANA Administration
Ondansetron HCl 4 mg 12/16/24 04:44 12/26/24 08:02
Ondansetron 4 Mg/2 Ml Vial IV 01/13/25 04:43 4 mg
Q6HPRN PRN Administration
nausea and vomiting
Ondansetron HCl 4 mg 12/16/24 14:09 12/22/24 22:11
Ondansetron 4 Mg (Orally-Disintegrating) Tablet PO 01/13/25 14:08 4 mg
Q8HPRN PRN Administration
nausea/vomiting
Pantoprazole Sodium 40 mg 12/16/24 08:00 12/27/24 07:54
Pantoprazole 40 Mg Delayed Release Tablet PO 01/13/25 07:59 40 mg
DAILY MARIANA Administration
Polyethylene Glycol 17 grams 12/23/24 20:00 12/27/24 07:53
Polyethylene Glycol Powder 17 Grams Packet PO 01/20/25 19:59 Not Given
On Hold: 12/27/24 10:57 BID MARIANA
Quetiapine Fumarate 75 mg 12/16/24 22:00 12/26/24 21:09
Quetiapine 25 Mg Tablet PO 01/13/25 21:59 75 mg
HS MARIANA Administration
Quetiapine Fumarate 25 mg 12/16/24 15:00 12/27/24 07:57
Quetiapine 25 Mg Tablet PO 01/13/25 14:59 25 mg
DAILY MARIANA Administration
Rivastigmine Tartrate 6 mg 12/16/24 20:00 12/27/24 07:57
Rivastigmine (Exelon) 3 Mg Capsule PO 01/13/25 19:59 6 mg
BID MARIANA Administration
Sennosides 17.2 mg 12/19/24 22:00 12/26/24 21:08
Sennosides (Senokot) 8.6 Mg Tablet PO 01/16/25 21:59 Not Given
On Hold: 12/27/24 10:58 HS MARIANA
Sodium Chloride 0 flush 12/16/24 05:00
Sodium Chloride 0.9% (Flush) Syringe IV 01/13/25 04:59
PER PROTOCOL MARIANA
Home Medications
�Medication �Instructions �Recorded
atorvastatin 40 mg tablet 40 mg PO HS High cholesterol 11/23/21
carbidopa ER 50 mg-levodopa 200 mg 1 tab PO HS Parkinson Disease 12/11/21
tablet,extended release
quetiapine 25 mg tablet 25 mg PO DAILY Psychosis in 12/11/21
Parkinson Disease
rivastigmine tartrate 3 mg capsule 6 mg PO BID Parkinson Disease 12/11/21
aspirin 81 mg chewable tablet 81 mg PO DAILY #0 tabs 12/14/21
lisinopril 40 mg tablet 40 mg PO DAILY 11/05/22
acetaminophen 325 mg tablet 650 mg PO Q4H PRN mild pain/fever 12/16/24
carbidopa 25 mg-levodopa 100 mg 1 tab PO DAILYPRN PRN before 12/16/24
tablet exercise
carbidopa 70 mg-levodopa ER 280 mg 2 cap PO TID 12/16/24
capsule,immed and extended release
(Crexont)
famotidine 40 mg tablet 40 mg PO HS 12/16/24
hydrochlorothiazide 25 mg tablet 25 mg PO DAILY 12/16/24
hydroxychloroquine 200 mg tablet 200 mg PO SUTUTHSA@199912/16/24
hydroxychloroquine 200 mg tablet 400 mg PO MOWEFR@199912/16/24
levothyroxine 137 mcg tablet 137 mcg PO MOTUWETHFR 12/16/24
loperamide 2 mg tablet 2 mg PO Q4H PRN diarrhea 12/16/24
melatonin 2.5 mg chewable tablet 5 mg PO HS 12/16/24
metoprolol succinate 25 mg 12.5 mg PO HS 12/16/24
tablet,extended release 24 hr
ondansetron 4 mg disintegrating 4 mg PO Q8HPRN PRN nausea/vomiting 12/16/24
tablet
pantoprazole 40 mg tablet,delayed 40 mg PO DAILY 12/16/24
release
pimavanserin 34 mg capsule 34 mg PO DAILY 12/16/24
(Nuplazid)
quetiapine 25 mg tablet 75 mg PO HS 12/16/24
--- NOTE | 2024-12-27 14:01 | CM ---
Addendum entered by Crystal Lorenz 12/27/24 17:01:
[facility]
Auth# [id number]
Snf Level for 5 days
Start date: 12/28/24
Review date: 01/01/25
Review line: [phone]
Pt will travel by Wheelchair van. Ana Aguilar requested an 11am pickup time
Transport papers completed
Plan: DC to [facility] in the am
Original Note:
Pt to DC to [facility] tomorrow. Bed available tomorrow. Dtr is aware of discharge plans.
Auth submitted
Report:[phone] ext [phone]
fax: [phone]
[2024-12-27 15:35] VITALS: BP 150/58
[2024-12-27] MEDS: LOVENOX 40 MG SC (16:03)
[2024-12-27 16:43] LABS: Glucose - Point of Care 106 mg/dl (70-99)
[2024-12-27] MEDS: PLAQUENIL PO (20:12)
[2024-12-27] MEDS: EXELON PO (20:12)
--- NOTE | 2024-12-27 20:12 | PTCARENOTE ---
Pt had difficulty swallowing pills and vomit the meds out. Zofran given.
[2024-12-27] MEDS: ZOFRAN 4 MG IV (20:14)
[2024-12-27] MEDS: LIPITOR PO (21:01)
[2024-12-27] MEDS: SEROQUEL PO (21:01)
[2024-12-27] MEDS: NON-FORMULARY ITEM PO (21:01)
[2024-12-27] MEDS: PEPCID PO (21:01)
[2024-12-27] MEDS: MELATONIN PO (21:01)
[2024-12-27] MEDS: SINEMET CR 50/200 (EXTENDED RELEASE) PO (21:01)
[2024-12-27] MEDS: MELATONIN 5 MG PO (21:05)
[2024-12-27] MEDS: TOPROL XL 12.5 MG PO (21:05)
[2024-12-27 21:10] LABS: Glucose - Point of Care 96 mg/dl (70-99)
[2024-12-27 23:16] VITALS: BP 144/74
[2024-12-28] MEDS: D5/0.45%NACL 1000 IV (01:53)
[2024-12-28] MEDS: SYNTHROID 137 MCG PO (03:48)
[2024-12-28 07:45] VITALS: BP 174/76
[2024-12-28 08:17] LABS: Glucose - Point of Care 130 mg/dl (70-99)
[2024-12-28] MEDS: PROTONIX PO ×2 (09:00→09:49)
[2024-12-28] MEDS: COLACE PO ×2 (09:49→09:59)
[2024-12-28] MEDS: EXELON 6 MG PO (09:49)
[2024-12-28] MEDS: LOW STRENGTH ASPIRIN 81 MG PO (09:49)
[2024-12-28] MEDS: ZESTRIL 40 MG PO (09:50)
[2024-12-28] MEDS: NON-FORMULARY ITEM 34 MG PO (09:53)
[2024-12-28] MEDS: ORETIC 25 MG PO (09:53)
[2024-12-28] MEDS: SEROQUEL 25 MG PO (09:53)
[2024-12-28] MEDS: NON-FORMULARY ITEM 1 CAP PO (09:54)
--- NOTE | 2024-12-28 13:01 | W.DCSUMMARY ---
Discharge Summary
Discharge Data
Date of Admission: 12/18/24
Date of Discharge: 12/28/24
-
Pending Results: No
Hospital Course
Primary diagnosis:
Intractable nausea vomiting suspected medication related
Secondary diagnosis:
Parkinson disease
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
Atherosclerotic cardiovascular disease
Hypothyroidism
History of lupus
Hospital course:
With history of Parkinson's disease and has a deep brain stimulator. She is on high doses of Parkinson's disease medication and also on Nuplazid for agitation. She came in with intractable nausea vomiting and some abdominal discomfort. She was
also having poor oral intake and weight loss.
Was seen by GI. Initially had a CT of the abdomen pelvis which showed some right lower quadrant small bowel wall thickening raising concern for enteritis but not clinically correlating infectious constipated. GI was given bowel regimen.
Showed obstruction series abdominal and showed nonobstructive bowel gas pattern. Had a esophagogram which demonstrated presbyesophagus. Had an EGD which showed no obvious pathology to account for nausea. She had a CT of the head as well which
showed no acute intracranial pathology. She has a deep brain stimulator in place. GI recommendation is CT enterogram if continued symptoms. MRE could not be obtained because of deep brain stimulator in place.
Other concern was if newly introduced long-acting Crexont was playing a role. She was on high doses of 2 tablets 3 times daily along with the Sinemet at night and as well as as needed for exercise. Neurology felt the Crexont may be playing a role
so they advised to decrease to 1 tablet 3 times daily instead of 2 tablets. Her nausea settled down and she was eating little more. Had a discussion with the patient's daughter about finding the balance between the medication and the side effect.
If she do poorly with physical therapy on a lower dose Crexont then follow with primary neurology and explore alternative formulations.
Today she denied any nausea or vomiting and had something to eat. Denied any abdominal pain. Eager to go to rehab and participate in therapies. Denied any chest pain or shortness of breath. She was afebrile pulse was 66 blood pressure 174/76 but
looking back at the previous blood pressure reading it was mostly under goal. The read was before the medications of her hypertension was given. Follow blood pressure readings at rehab. Deemed medically stable for discharge to rehab
Consultants on board:
GI-Merly Melton
Neurology-José Miguel Constantino
Portions of this chart may have been created with voice recognition software. Occasional wrong word or 'sound alike' substitutions may have occurred due to the inherent limitations of voice recognition software.
Discharge Plan
-
Patient Disposition: Intermediate/SNF
Discharge Diagnosis/Procedures: Nausea and vomiting suspected secondary to PD medication; PD on meds and DBS in situ
Condition: Fair
Diet: Regular
Activity: As tolerated
Driving Restrictions: Not until seen by your Dr
Bathing Restrictions: None
Blood Work: BMP in one week
Other Services: PT and OT
Specialty Instructions: Weigh Daily- Call MD for wt gain/loss 3 lbs overnight/5 lbs in 1 week
Referrals:
Maria Fernanda Aguilar MD, Resident [Family Provider, General]
Prescriptions:
New
docusate sodium 100 mg Capsule
100 mg PO BID Qty: 1 0RF
polyethylene glycol 3350 17 gram Powder In Packet
17 g PO DAILY Qty: 14 0RF
Continued
atorvastatin 40 mg Tablet
40 mg PO HS
quetiapine 25 mg Tablet
25 mg PO DAILY
carbidopa-levodopa 50-200 mg Tablet Extended Release
1 tab PO HS
rivastigmine tartrate 3 mg Capsule
6 mg PO BID
aspirin 81 mg Tablet,Chewable
81 mg PO DAILY Qty: 0 0RF
lisinopril 40 mg Tablet
40 mg PO DAILY
quetiapine 25 mg tablet
75 mg PO HS
levothyroxine 137 mcg tablet
137 mcg PO MOTUWETHFR
acetaminophen 325 mg Tablet
650 mg PO Q4H PRN (Reason: mild pain/fever)
famotidine 40 mg tablet
40 mg PO HS
pantoprazole 40 mg tablet,delayed release (DR/EC)
40 mg PO DAILY
hydrochlorothiazide 25 mg tablet
25 mg PO DAILY
metoprolol succinate 25 mg tablet extended release 24 hr
12.5 mg PO HS
hydroxychloroquine 200 mg tablet
200 mg PO SUTUTHSA@1999
hydroxychloroquine 200 mg tablet
400 mg PO MOWEFR@1999
carbidopa-levodopa 25-100 mg tablet
1 tab PO DAILYPRN PRN (Reason: before exercise)
Patient Comments:
patient self administers
ondansetron 4 mg tablet,disintegrating
4 mg PO Q8HPRN PRN (Reason: nausea/vomiting)
melatonin 2.5 mg Tablet,Chewable
5 mg PO HS
Nuplazid 34 mg capsule
34 mg PO DAILY
Changed
Crexont 70-280 mg capsule,IR -extend rel,biphase
1 cap PO TID Qty: 0 0RF
Patient Comments:
patient self administers
Discontinued
loperamide 2 mg Tablet
2 mg PO Q4H PRN (Reason: diarrhea)
Discharge Orders:
Discharge Patient (As Directed); Ordered 12/28/24
Ordered By: Isaac West
Discharge Date and Time
Discharge Date/Time: 12/28/24 11:24
Print Language: MALAY
--- NOTE | 2024-12-28 14:23 | CM ---
Patient has been medically cleared for discharge to [facility] for nursing home and rehab services. [facility] transport was scheduled for 11:00AM.
== END 2024-12-28 11:24 | DRG 391 ==
LOC: 4 EAST ACU 14:31
PROVIDERS: Emergency Medicine; Hospitalist; Internal Medicine; Specialist; ADMITTING PHYSICIAN Hospitalist; ATTENDING PHYSICIAN Internal Medicine; CONSULT PHYSICIAN Internal Medicine; CONSULT PHYSICIAN Psychiatry & Neurology Neurology; EMERGENCY PHYSICIAN Emergency Medicine; FAMILY PHYSICIAN Student in an Organized Health Care Education/Training Program
PROC: 0DB58ZX Excision of Esophagus, Via Natural or Artificial Opening Endoscopic, Diagnostic (ICD-10-PCS; 2024-12-25)
PROC: 0DB98ZX Excision of Duodenum, Via Natural or Artificial Opening Endoscopic, Diagnostic (ICD-10-PCS; 2024-12-25)
PROC: 0DB78ZX Excision of Stomach, Pylorus, Via Natural or Artificial Opening Endoscopic, Diagnostic (ICD-10-PCS; 2024-12-25)
DX: R11.2 Nausea with vomiting, unspecified (principal); G92.8 Other toxic encephalopathy; E87.1 Hypo-osmolality and hyponatremia; D75.81 Myelofibrosis; G20.A1 Parkinson's disease without dyskinesia, without mention of fluctuations; T42.4X5A Adverse effect of benzodiazepines, initial encounter; Z79.82 Long term (current) use of aspirin; K59.09 Other constipation; E87.6 Hypokalemia; K20.0 Eosinophilic esophagitis; K31.7 Polyp of stomach and duodenum; K31.89 Other diseases of stomach and duodenum; E03.9 Hypothyroidism, unspecified; Z66 Do not resuscitate; Z79.899 Other long term (current) drug therapy; Z87.891 Personal history of nicotine dependence; Z11.52 Encounter for screening for COVID-19
CPT/HCPCS: 36600; 70450; 71045; 74022; 74177; 74220; 80048; 80053; 80076; 82248; 82805; 82962; 83036; 83690; 83735; 83935; 84100; 84300; 84443; 85025; 85027; 86140; 87070; 87502; 87811; 88305; 88342; 92526; 92610; 93005; 96361; 96374; 97110; 97116; 97530; 99285; J2358; Q9967